=== PATIENT | male | born 1980 | race Caucasian/White ===

== ENCOUNTER 2018-12-19 15:45 | Inpatient (IN) | payer OTHER ==
[~2018-12-19] VITALS: Ht 165.1 cm; Wt 52.7 kg
[2018-12-19 16:27] LABS: BASOPHIL % 0.4 % (0-2); PLATELET COUNT 282 x10^3mcL (130-400)
[2018-12-19 16:47] LABS: BILIRUBIN TOTAL 0.5 mg/dL (0.20-1.00); CALCIUM 8.8 mg/dL (8.5-10.1); CARBON DIOXIDE 20.1 mmol/L (21-32)
[2018-12-19 16:57] LABS: ALBUMIN 2.7 g/dL (3.4-5.0); TOTAL PROTEIN, SERUM 12.4 g/dL (6.4-8.2)
[2018-12-19 16:59] LABS: CREATININE SERUM 4.9 mg/dL (0.7-1.3); POTASSIUM SERUM 2.8 mmol/L (3.5-5.1)
[2018-12-19] MEDS ORDERED: RENVELA800 M1 PO (18:41)
[2018-12-19] MEDS ORDERED: DIFLUCAN200 MG PO (18:41)
[2018-12-19 19:01] LABS: MAGNESIUM 1.9 mg/dL (1.8-2.4); PHOSPHOROUS 4.2 mg/dL (2.5-4.9)
[2018-12-19 19:07] LABS: CHOLESTEROL/HDL RATIO 4.3
[2018-12-19 19:10] LABS: FREE T4 1.02 ng/dL (0.76-1.46); FREE THYROXINE INDEX 2.8 ug/dL (1.4-4.5); T4(THYROXINE) 8.7 ug/dL (4.7-13.3)
[2018-12-19 19:42] VITALS: BP 97/79
[2018-12-19 19:54] VITALS: Ht 165.1 cm; Wt 52.7 kg
[2018-12-19 20:52] LABS: T3 TOTAL 1.31 ng/mL
[2018-12-20 06:25] LABS: BASOPHIL % 0.5 % (0-2); PLATELET COUNT 218 x10^3mcL (130-400)
[2018-12-20 06:35] VITALS: BP 89/59
[2018-12-20 06:42] LABS: CALCIUM 7.9 mg/dL (8.5-10.1); CARBON DIOXIDE 16.3 mmol/L (21-32); PHOSPHOROUS 6.2 mg/dL (2.5-4.9); POTASSIUM SERUM 3.2 mmol/L (3.5-5.1)
[2018-12-20 06:43] LABS: CREATININE SERUM 6.2 mg/dL (0.7-1.3)
[2018-12-20 08:49] LABS: RED CELL DISTRIBUTION WIDTH 19.8 % (11.5-14.5)
[2018-12-20 09:41] VITALS: BP 81/51
[2018-12-20 10:26] LABS: rbc morphology (normal/abnorm) ABNORMAL (NORMAL)
[2018-12-20 13:08] VITALS: BP 94/58
[2018-12-20] MEDS ORDERED: PROA PO (15:00)
[2018-12-20 16:58] VITALS: BP 94/58
== END 2018-12-20 18:12 | disposition home or self-care (01) | DRG 207 ==
LOC: ED 15:45 → DU 18:15
PROVIDERS: Emergency Medicine; ADMIT Family Medicine
DX: I95.9 Hypotension, unspecified (principal); N17.0 Acute kidney failure with tubular necrosis; E43 Unspecified severe protein-calorie malnutrition; G90.9 Disorder of the autonomic nervous system, unspecified; N18.6 End stage renal disease; B20 Human immunodeficiency virus [HIV] disease; E87.6 Hypokalemia; R74.0 Nonspecific elevation of levels of transaminase and lactic acid dehydrogenase [LDH]; E78.5 Hyperlipidemia, unspecified; D64.9 Anemia, unspecified; E02 Subclinical iodine-deficiency hypothyroidism; Z68.20 Body mass index [BMI] 20.0-20.9, adult; Z91.14 Patient's other noncompliance with medication regimen
CPT/HCPCS: 83880; 84439; J3480; J3490; J7030; J7040; P9045

== ENCOUNTER 2019-01-13 11:27 | Inpatient (IN) | payer OTHER ==
[~2019-01-13] VITALS: Ht 165.1 cm; Wt 50.3 kg
[~2019-01-13 11:27] MED LIST: DIFLUCAN200 MG PO; PROA PO; RENVELA800 M1 PO
[2019-01-13 11:33] VITALS: Ht 165.1 cm; Wt 50.3 kg
--- NOTE | 2019-01-13 11:40 | NUR ---
PATIENT BIBA FOR SOB, DIZZINESS, HYPOTENSION, DIARHEA. PER PATIENT, HE STS HE WAS HAVING THESE SYMPTOMS SINCE DAY BEFORE YESTERDAY. STS THAT HE LAST WENT TO DIALYSIS TUESDAY AND WAS SUPPOSED TO GO TO DIALYSIS TODAY BUT WAS NOT ABLE TO. PATIENT AAOX4, PERRLA, GCS 15, PATIENT ACTING APPROPRIATELY. DR. RIOS AT BEDSIDE PERFORMING MSE
[2019-01-13 12:22] LABS: BASOPHIL % 0.1 % (0-2); PLATELET COUNT 254 x10^3mcL (130-400)
[2019-01-13 12:38] LABS: ALKALINE PHOSPHATASE 141 U/L (46-116); ALT/SGPT 55 U/L (16-63); AST/SGOT 58 U/L (15-37); BILIRUBIN TOTAL 0.3 mg/dL (0.20-1.00); CALCIUM 7.9 mg/dL (8.5-10.1); CARBON DIOXIDE 16.8 mmol/L (21-32); CHLORIDE SERUM 93 mmol/L (98-107); GLUCOSE SERUM 107 mg/dL (74-106); LIPASE 287 IU/L (73-393); POTASSIUM SERUM 3.7 mmol/L (3.5-5.1); SODIUM SERUM 131 mmol/L (136-145)
[2019-01-13 12:51] LABS: ALBUMIN 2.7 g/dL (3.4-5.0); CREATININE SERUM 7.3 mg/dL (0.7-1.3); GFR1 9 mL/min
[2019-01-13] MEDS ORDERED: POTASSIUM CHLO10 MEQ (13:10)
[2019-01-13] MEDS ORDERED: MIDODRINE HYDRO10 M1 PO (13:10)
[2019-01-13] MEDS ORDERED: MASON NATURAL1000 IU (13:11)
--- NOTE | 2019-01-13 13:49 | NUR ---
PT RESTING AT BEDSIDE IN NAD.
--- NOTE | 2019-01-13 13:54 | NUR ---
REPORT GIVEN TO VIDHYA GRAY TELE
--- NOTE | 2019-01-13 13:57 | NUR ---
TRIAGE ESTIMATED WEIGHT @ 100 #. PT WEIGHED ON SCALE @ THIS MQFQ=[id number] #. TRIAGE UPDATED. MD INFORMED. 109#=49.5 KG 49.5KG X 30 CC/OT=[id number] CC LESS 10%=1338 CC CURRENT FLUID BOLUS XZUOH=[id number] CC WHICH IS WITHIN 10% OF [address] RIOS & LISSETTE PRIMARY RN AWARE OF THE ABOVE.
[2019-01-13 14:14] LABS: CHOLESTEROL/HDL RATIO 3.7
--- NOTE | 2019-01-13 14:30 | NUR ---
RECEIVED PT VIA YouFetchERNEY FROM E/D, ACCOMPANIED BY RN AND TRANSPORTER. PT A/A/O X 4, CALM, COOPERATIVE. ON TELE # 21, ST, HR 103, DENIES CHEST PAIN OR DISCOMFORT AT THIS TIME. LUNGS CTAB, CHEST RISING EVENLY, R/A, 99%, EPISODES OF SOB. ABD SOFT, FLAT, TENDERNESS UPON PALPATION TO QUADS 2 & 3, HYPERACTIVE BOWEL SOUNDS X 4 QUADS, LAST BM 01/13/19, DARK BROWN LIQUID, INTERMITTENT ABD CRAMPING 03/14, RELIEVED ONLY BY MEDICATIONS; REPORTS NAUSEA, VERY POOR PO INTAKE, AND CHOKES ON SOLID FOOD. OLIGURIC, HAS RIGHT TISHA CATH W/ DRESSING CDI, REPORTED LAST DIALYSIS 01/11/19 AND MISSED 01/13/19. GENERALIZED/SCATTERED BODY SCARS. IV SITE LFA 20G, CDI. ORIENTED PT TO ROOM, BED CONTROLS, CALL LIGHT SYSTEM. SIDE RAILS UP X 2, BED IN LOW POSITION. WILL ENDORSE TO VIDHYA DONNELLY.
--- NOTE | 2019-01-13 14:35 | NUR ---
Total fluid resuscitation amount ordered for patient is 1550 mls. At time of admission/transfer to [facility], 680 mls have infused. Last BP was 90/36 and ,RN is aware that BP will need to be reassessed after fluid infusion completed.
[2019-01-13 15:09] LABS: PHOSPHOROUS 9.3 mg/dL (2.5-4.9)
--- NOTE | 2019-01-13 15:21 | NUR ---
250ML BOLUS INITIATED AT THIS TIME.
[2019-01-13 15:36] VITALS: BP 83/57
--- NOTE | 2019-01-13 16:07 | NUR ---
PAGED DR GARLAND AT THIS TIME REGARDING FIRST DOSE OF PRO-AMATINE AND IF SHE WANTS ONE DOSE NOW OR FIRST DOSE TO BE STARTED AT 21:00 TONIGHT. AWAITING CALL BACK AT THIS TIME. WILL CONTINUE TO MONITOR
--- NOTE | 2019-01-13 16:21 | NUR ---
250ML BOLUS COMPLETE AT THIS TIME
[2019-01-13 16:34] VITALS: BP 82/50
--- NOTE | 2019-01-13 16:37 | NUR ---
PAGED AND PAGEGATE DR GARLAND AT THIS TIME REGARDING PATIENT LACTIC ACID 4.8 AT THIS TIME. AWAITING CALL BACK AT THIS TIME. NO NEW ORDERS SEEN. WILL CONTINUE TO MONITOR
[2019-01-13 17:08] VITALS: BP 84/57
--- NOTE | 2019-01-13 17:29 | NUR ---
SPOKE TO DR GARLAND TO ORDER A ONE TIME DOSE OF MIDODRINE AT THIS TIME. PER DR GARLAND SHE WILL PUT ORDER IN. AWAITING ORDER AT THIS TIME. WILL CONTINUE TO MONITOR
[2019-01-13 17:48] VITALS: BP 83/54
--- NOTE | 2019-01-13 18:03 | NUR ---
FILLED OUT C.DIFFICILE TEST REQUISTION AT THIS TIME FOR PATIENT TO COMPLETION. PATIENT MEETS C.DIFFICILE CRITERIA. CALLED LAB AND APPARENTLY PER IRONER SOCK C DIFFICILE TEST WAS RAN WITHOUT PRINTED ORDERS OR MANDATORY SUPPLEMENTARY DOCUMENTATION FOR C.DIFFICILE. ALL NEEDS ATTENDED TO. WILL CONTINUE TO MONITOR
--- NOTE | 2019-01-13 18:55 | NUR ---
PATIENT RESTING COMFORTABLY IN BED AT THIS TIME. NO APPARENT DISTRESS OR DISCOMFORT NOTED. IV PATENT AND INTACT. DRESSING TO TISHA CATH CHANGED. CDI. ALL QUESTIONS AND CONCERNS ADDRESSED. SAFETY PRECAUTIONS MAINTAINED. ALL NEEDS ATTENDED TO. WILL ENDORSE ALL CARE TO INSURANCE AUDITOR NURSE
--- NOTE | 2019-01-13 19:27 | NUR ---
RECEIVED PATIENT IN BED AWAKE,ALERT AND ORIENTED WITH NO SIGN OF ACUTE RESPIRATORY DISTRESS. BREATHING EASY AND NONLABOR SATTING AT 99% RA. TELE# 21 SR/ST WITH DEPRESSED T WAVE ON MONITOR, DENIES CHESTPAIN. ABDOMEN ROUND SOFTA ND NON TENDER WITH HYPERACTIVE BS X4 QUADRANTS. IV TO LFA INTACT AND INFUSING WELL. RT CHEST TISHA CATH INTACT DRESSING CDI. WILL CONTINUE TO MONITOR. CALL LIGHT WITHIN REACH.
[2019-01-13 21:24] VITALS: BP 94/62
--- NOTE | 2019-01-14 01:54 | NUR ---
APPEARS SLEEPING AT THIS TIME BREATHING EASYA ND NONLABOR. WILL CONTINUE TO MONITOR.
--- NOTE | 2019-01-14 05:02 | NUR ---
CHECKED AT INTERVALS FOR NEEDS AND SAFETY. ALL NEEDS ATTENDED.
[2019-01-14 05:31] VITALS: BP 84/54
[2019-01-14 06:43] LABS: CARBON DIOXIDE 11.9 mmol/L (21-32); POTASSIUM SERUM 3.8 mmol/L (3.5-5.1)
--- NOTE | 2019-01-14 07:00 | NUR ---
RECEIVED BEDSIDE REPORT FROM HUMAN RESOURCES TRAINEE NURSE AT THIS TIME. PATIENT RESTING COMFORTABLY IN BED. NO APPARENT DISTRESS OR DISCOMFORT NOTED. BREATHING EVEN AND UNLABORED. NO RESPIRATORY DISTRESS OR DISCOMFORT NOTED. IV PATENT AND INTACT. DRESSING TO RIGHT CHEST TISHA CATH CDI. ALL QUESTIONS AND CONCERNS ADDRESSED. ALL NEEDS ATTENDED TO. WILL CONTINUE TO MONITOR
[2019-01-14 07:30] LABS: PLATELET COUNT 254 x10^3mcL (130-400); RED CELL DISTRIBUTION WIDTH 18.5 % (11.5-14.5)
[2019-01-14 07:33] LABS: CREATININE SERUM 8.5 mg/dL (0.7-1.3); PHOSPHOROUS 13.9 mg/dL (2.5-4.9)
--- NOTE | 2019-01-14 07:34 | NUR ---
REPORTED TO DR GARLAND REGARDING PATIENT PHOS OF 13.9 AT THIS TIME. WILL PROCEED ORDERED. ALL NEEDS ATTENDED TO. WILL CONTINUE TO MONITOR
[2019-01-14 09:32] VITALS: BP 75/50
--- NOTE | 2019-01-14 10:00 | NUR ---
ALL MORNING MEDICATIONS ADMINISTERED. PATIENT TOLERATED MEDICATION ADMINISTRATION WELL. NO APPARENT DISTRESS NOTED. NO ADVERSE EFFECTS NOTED. ALL NEEDS ATTENDED TO. WILL CONTINUE TO MONITOR
--- NOTE | 2019-01-14 12:40 | NUR ---
ALL MORNING MEDICATIONS ADMINISTERED. PATIENT TOLERATED MEDICATION ADMINISTRATION WELL. NO APPARENT DISTRESS NOTED. NO ADVERSE EFFECTS NOTED. ALL NEEDS ATTENDED TO. WILL CONTINUE TO MONITOR
[2019-01-14 13:05] VITALS: BP 78/47
[2019-01-14 13:20] LABS: ATYPICAL LYMPH 0 %; BAND NEUTROPHIL 14 % (0-10); SEGMENTED NEUTROPHILS 74 % (37-75)
[2019-01-14 13:21] LABS: BASOPHIL 0 % (0-2); MONOCYTE 2 % (0-7); PLATELET MORPHOLOGY PLATELETS INCREASED; rbc morphology (normal/abnorm) ABNORMAL (NORMAL)
--- NOTE | 2019-01-14 13:36 | NUR ---
PATIENT C/O NAUSEA AT THIS TIME. ZOFRAN PRN IVP ADMINISTERED. PATIENT TOLERATED WELL. NO ADVERSE EFFECTS NOTED. ALL NEEDS ATTENDED TO. WILL CONTINUE TO MONITOR
--- NOTE | 2019-01-14 14:01 | NUR ---
PER DR GILL ESCALANTE TO FINISH FLAGYL ANTIBITOIC IVPB BEFORE STARTING 500ML BOLUS AT THIS TIME. WILL PROCEED ORDERED
--- NOTE | 2019-01-14 14:17 | NUR ---
PER DR GILL ESCALANTE TO BOLUS 500ML OF D5W AT THIS TIME. WILL CONTINUE TO MONITOR PATIENT
--- NOTE | 2019-01-14 14:26 | NUR ---
500ML BOLUS INITIATED AT THIS TIME
--- NOTE | 2019-01-14 14:35 | NUR ---
GAVE REPORT TO [facility] AT THIS TIME. ALL QUESTIONS AND CONCERNS ADDRESSED. ALL NEEDS ATTENDED TO. WILL TRANSFER PATIENT DOWN TO ICU BED 4 AT THIS TIME AND WILL BRING D5W BOLUS DOWN.
--- NOTE | 2019-01-14 15:00 | NUR ---
THE NOTE FROM 1450 TO 1500: RECEIVED THE PATIENT TRANSFERRED FROM [facility] UNIT. THE PATIENT AWAKE AND ORIENTED TO PERSON, PLACE AND TIME. PATIENT DENIES SHORTNESS OF BREATH AFTER GETTING TO THE BED FROM THE WHEELCHAIR. PATIENT ALSO DENIES NAUSEA/VOMITING OR PAIN AT THIS TIME. IV SITE TO LEFT FOREARM WITH BOLUS OF D5W 500ML INFUSING. THE PATIENT ORIENTED TO ROOM AND EQUIPMENT. THE PATIENT HOOKED UP TO FULLY MONITORING EQUIPMENTS. CALL LIGHT WITHIN REACH. SIDE RAILS UP X3. BED WAS AT LOWEST POSITION. ALARM WAS ON.
[2019-01-14 15:16] VITALS: BP 87/59
--- NOTE | 2019-01-14 16:00 | NUR ---
BOLUS OF 500 ML OF D5W COMPLETED; BP 97/60 (74).
--- NOTE | 2019-01-14 16:01 | NUR ---
TELEPHONED JAY FROM [facility] H.D. AND MADE AWARE PATIENT IN NEED OF H.D. TODAY. JAY STATED THAT HER H.D. RN WILL ARRIVE IONCE COMPLETED WITH PATIENT ON [facility].
--- NOTE | 2019-01-14 18:45 | NUR ---
THE PATIENT C/O NAUSEA; ZOFRAN 4MG IVP WAS ADMINISTERED TO THE PATIENT.
--- NOTE | 2019-01-14 19:07 | NUR ---
REPORT WAS GIVEN TO GONZALEZ PHILLIPS RN. CONCERNS WERE ADDRESSED.
--- NOTE | 2019-01-14 19:08 | NUR ---
REPORT RECIEVED FROM JUSTYNA KEE. RESUMED CARE OF PT. SEE SHIFT ASSESSMENT FOR PT ASSESSMENT.
--- NOTE | 2019-01-14 19:31 | NUR ---
CONSENT ATTAINED FROM PT FOR HEMODIALYSIS PER ORDERS. PT VERBALIZED KNOWLEDGE OF PROCEDURE AND RISK FACTORS. STATED HE ONLY FEELS ADVERSE EFFECTS SOMETIMES AND HIS BLOOD PRESSURE USUALLY DROPS A LITTLE.
--- NOTE | 2019-01-14 19:57 | NUR ---
PT W/ LOOSE BM BROWN LIQUID UNFORMED. CHANGED LINENS, CLEANED PT, NEW DIAPER. PT TOLERATED WELL.
--- NOTE | 2019-01-14 20:55 | NUR ---
PT W/ BM @ BEDSIDE COMMODE. BM LOOSE BROWN LIQUID. PT CLEANED SELF. NO S/S OF DISTRESS. PT RETURNED TO BED NO S/S OF SOB.
--- NOTE | 2019-01-14 21:27 | NUR ---
D5 NS W/ 1 AMP BICARB COMPLETED BP 95/55(72). PT TOLERATED WELL.
[2019-01-14 23:07] VITALS: BP 95/58
--- NOTE | 2019-01-14 23:36 | NUR ---
HD RN @ BEDSIDE. PT W/ NO ACUTE CHANGES. VS WNL. PT RESTING COMFORTABLY IN BED W/ CALL PFEIFFER WITHIN REACH BED IN LOWEST POSITION.
--- NOTE | 2019-01-15 00:30 | NUR ---
DR MEJIA @ BEDSIDE. NURSING UPDATES. POC DISCUSSED. NEW ORDERS IMPLEMENTED. STOOL OVA & PARASITES, C/S, AFB STAIN, MODIFIED AFD STAIN. DC DIFLUCAN AND FLAGYL. CD4 LYMPHOCYTE COUNT, HIV RNA LEVEL (BLOOD). LEVAQUINN IV [id number]. ZITHROMAX 500MG IV Q12H.
--- NOTE | 2019-01-15 01:47 | NUR ---
TITRATED LEVOPHED ON @ 2MCG/MIN FOR LOW BLOOD PRESSURE MAP < 65 AND SYSTOLIC < 90. WILL TITRATE AND CONT TO MONITOR.
--- NOTE | 2019-01-15 01:58 | NUR ---
TITRATED LEVO FROM 2MCG TO 4MCG/MIN PER PT LOW BP MAP < 65. WILL CONT TO MONITOR.
--- NOTE | 2019-01-15 03:03 | NUR ---
NOTIFIED BY HD RN THAT THERE WAS 0ML OUTPUT. LEVO STILL INFUSING @ 4MCG/MIN TO MAINTAIN MAP < 65.
--- NOTE | 2019-01-15 03:10 | NUR ---
HD COMPLETED. PT TOLERATED WELL. LEVO TITRATED FROM 4MCG TO 2CG/MIN PER PT BP MAP > 65 FOR 30 MINS. WILL CONT TO MONTIOR.
[2019-01-15 03:11] VITALS: BP 97/50
--- NOTE | 2019-01-15 04:46 | NUR ---
PHYSICIAN OFFICE SECRETARY ALISHA @ BEDSIDE FOR AM DRAWS.
[2019-01-15 05:00] LABS: BASOPHIL % 0.4 % (0-2); PLATELET COUNT 193 x10^3mcL (130-400)
[2019-01-15 05:02] LABS: RED CELL DISTRIBUTION WIDTH 17.3 % (11.5-14.5)
[2019-01-15 05:07] LABS: CALCIUM 7.5 mg/dL (8.5-10.1); CARBON DIOXIDE 32.1 mmol/L (21-32); CREATININE SERUM 3.6 mg/dL (0.7-1.3); MAGNESIUM 1.5 mg/dL (1.8-2.4); PHOSPHOROUS 2.9 mg/dL (2.5-4.9)
[2019-01-15 05:09] LABS: POTASSIUM SERUM 2.5 mmol/L (3.5-5.1)
--- NOTE | 2019-01-15 05:20 | NUR ---
DR AL PAGED FOR PT K+ 2.5. AWAITING ORDERS
--- NOTE | 2019-01-15 05:28 | NUR ---
PT REPORTED PAIN 8/10 IN ABD W/ GASTRIC PRESSURE BUILDING. PAIN RELIEF MEASURES IMPLODED. PT DISPLAY SLIGHT GUARDING TO RIGHT SIDE. ADM PRN NORCO (*SEE MAR*). WILL REASSESS PAIN.
--- NOTE | 2019-01-15 05:41 | NUR ---
PT W/ BM UNFORMED LOOSE LIGHT BROWN STOOL IN BEDSIDE COMMODE. CLEANED PT AND LINENS. OVA AND PARA/ AFB SAMPLES COLLECTED AND SENT TO LAB. NOTED SLIGHT HINT OF BLOOD SMELL FROM STOOL SAMPLES.
--- NOTE | 2019-01-15 05:55 | NUR ---
LEVOPHED TITRAED OFF FOR BP MAP CONSISTENT > 65 FOR 1 HOUR. WILL CONT TO MONITOR.
--- NOTE | 2019-01-15 05:57 | NUR ---
DR ZAPIEN NOTIFIED OF K+ 2.5 AND MG 1.5. AWAITING ORDERS. NURSING UPDATES AND DISCUSSED POC.
--- NOTE | 2019-01-15 07:15 | NUR ---
REPORT GIVEN BY VIDHYA PHILLIPS. ALL QUESTIONS ANSWERED.
--- NOTE | 2019-01-15 07:20 | NUR ---
PATIENT IS IN BED, BED IS TO THE LOWEST POSITION. PATIENT IS ON ROOM AIR BREATHING ADEQUATELY AND THERE ARE NO SIGNS OF RESPIRATORY DISTRESS. LADLE POURER IN PLACE, NSR. PATIENTS SKIN HAS SCATTERED SCABS THROUGHOUT, HX OF HIV. PATIENT IS ALERT AND ORIENTED AND ABLE TO FOLLOW COMMANDS. RIGHT TISHA IS INTACT. ABD IS SOFT AND FLAT. LFA IV IS INTACT AND PATENT WITH A Y PORT. PATIENT HAS A DIAPER NOTED. PATIENT WAS EDUCATED ON HOSPITAL POLICY, AND THAT DIAPERS CAN CAUSE SKIN BREAKDOWN. PATIENT STATED "I UNDERSTAND, BUT I FEEL MORE COMFORTABLE WITH DIAPERS, I WILL LET YOU KNOW SOON I HAVE A BOWEL MOVEMENT". WILL CONTINUE TO EDUCATE PATIENT. BED SIDE COMMODE IS AT BEDSIDE. HEELS OFF LOADED WITH PILLOWS. PATIENT STABLE, CALL LIGHT WITHIN REACH, WILL CONTINUE TO MONITOR.
[2019-01-15 07:26] VITALS: BP 80/47
--- NOTE | 2019-01-15 09:27 | NUR ---
DR. CELESTIN, RESIDENTS, PRIMARY RN AND SHOT COAT TENDER AT BEDSIDE FOR MORNING ROUNDS. PLAN OF CARE DISCUSSED. PT STABLE TO TRANSFER TO [facility] TODAY. WILL CONT TO MONITOR.
--- NOTE | 2019-01-15 09:50 | NUR ---
CALLED, ALL UPDATES PROVIDED. DR. IBRAHIM WOULD LIKE NS TO BE ORDERED AT 75 ML/HR.
--- NOTE | 2019-01-15 10:00 | NUR ---
PATIENT ASSISTED TO BEDSIDE COMMODE, PATIENT HAD DIARRHEA, WATERY, GREEN/BROWN IN COLOR. PATIENT CLEANSED AND ASSISTED BACK TO BED, PATIENT STABLE, WILL CONTINUE TO MONITOR.
[2019-01-15 11:12] VITALS: BP 81/47
--- NOTE | 2019-01-15 12:40 | NUR ---
PATIENT USED BEDSIDE COMMODE HAD APPROXIMATELY 60 ML OF DIARRHEA, WATERY AND GREEN/ BROWN IN COLOR. PATIENT CLEANSED AND STABLE. WILL CONTINUE TO MONITOR.
--- NOTE | 2019-01-15 12:53 | NUR ---
PATIENT USED BEDSIDE COMMODE HAD 50 ML OF WATERY DIARRHEA, GREEN/ BROWN IN COLOR. PATIENT ASSISTED WITH CLEANSING. PATIENT STABLE, WILL CONTINUE TO MONITOR.
--- NOTE | 2019-01-15 14:35 | NUR ---
DR. IBRAHIM AT BEDSIDE. ALL UPDATES PROVIDED. PER DR. IBRAHIM, 20 MEQ OF POTASSIUM TO BE GIVEN IV . DR. ZAPIEN MADE AWARE AND WILL ORDER. PATIENT STABLE AT THIS TIME. WILL CONTINUE TO MONITOR.
[2019-01-15 15:57] VITALS: BP 81/43
[2019-01-15 16:13] LABS: BILIRUBIN TOTAL 0.37 mg/dL (0.20-1.00); CALCIUM 7.4 mg/dL (8.5-10.1)
[2019-01-15 16:21] LABS: ALBUMIN 3.1 g/dL (3.4-5.0); TOTAL PROTEIN, SERUM 8.8 g/dL (6.4-8.2)
[2019-01-15 16:22] LABS: POTASSIUM SERUM 2.5 mmol/L (3.5-5.1)
[2019-01-15 16:23] LABS: CREATININE SERUM 5.2 mg/dL (0.7-1.3)
--- NOTE | 2019-01-15 16:31 | NUR ---
DR. ZAPIEN MADE AWARE OF POTASSIUM 2.5 WITH SECOND K-RIDER STILL INFUSING WELL CREAT OF 5.2, NO FURTHER ORDERS AT THIS TIME.
--- NOTE | 2019-01-15 17:30 | NUR ---
PATIENT USED BEDSIDE COMMODE, 30 ML OF DIARRHEA, GRENN/BROWN IN COLOR AND WATERY. PATIENT ASSISTED WITH CLEANSING. PATIENT STABLE, WILL CONTINUE TO MONITOR.
--- NOTE | 2019-01-15 18:33 | NUR ---
REPORT GIVEN TO VIDHYA GILLESPIE. ALL QUESTIONS AND CONCERNS ADDRESSED, PATIENT READY FOR TRANSFER, AT THIS TIME.
--- NOTE | 2019-01-15 18:34 | NUR ---
REPORT GIVEN TO VIDHYA GILLESPIE. ALL QUESTIONS AND CONCERNS ADDRESSED. INFORMED VERNA THAT POTASSIUM WAS 2.5, AND SECOND DOSE WAS GIVEN. DR. RUPALI MORALEZ. ALSO INFORMED TO FOLLOW UP ON POTASSIUM DRAW. PATIENT STABLE AT THIS TIME AND READY FOR TRANSFER.
--- NOTE | 2019-01-15 18:59 | NUR ---
RECEIVED A TRANSFER FROM ICU VIA WHEELCHAIR, SEEN AWAKE, ALERT, ORIENTED X4. BREATHING EASY AND EVEN ON ROOM AIR. V/S FOLLOW BP 79/42, HR 55, O2SAT 100% ON ROOM AIR, AFEBRILE. IVF NS TO LFA INFUSING WELL AT 75ML/HR. TELE#[address] NSR HR=61. TISHA CATH NOTED TO RIGHT CHEST WALL WITH DRSG CDI. PLAN OF CARE DISCUSSED. CALL LIGHT PLACED WITHIN EASY REACH. SIDERAILS UP X2.
[2019-01-15 19:26] LABS: CALCIUM 7.5 mg/dL (8.5-10.1); CARBON DIOXIDE 28.3 mmol/L (21-32)
[2019-01-15 19:27] LABS: CREATININE SERUM 5.3 mg/dL (0.7-1.3); POTASSIUM SERUM 2.9 mmol/L (3.5-5.1)
--- NOTE | 2019-01-15 19:50 | NUR ---
AOX4. TELE #1, SR. LUNGS CLEAR ON RA. PULSES PALPABLE. NO EDEMA. BOWEL SOUNDS ACTIVE. C/O MULTIPLE LOOSE BM TODAY. PT IS ANURIC WITH HD AND TISHA CATH TO R CHEST WALL, NO REDNESS, DRESSING CDI. AMBULATORY. DARK DISCOLORATIONS SCATTERED THROUGHOUT. DENIES PAIN. IV TO LFA, PATENT AND INFUSING. K 2.9, DR. ZAPIEN NOTIFIED VIA PAGEGATE. BED IN LOWEST POSITION, 2 SIDE RAILS UP, CALL LIGHT IN REACH. INSTRUCTED TO CALL FOR ASSISTANCE.
[2019-01-15 20:39] VITALS: BP 79/42
--- NOTE | 2019-01-16 02:57 | NUR ---
RESTING IN BED WITH EYES CLOSED. BREATHING E/U ON RA. NO ACUTE DISTRESS NOTED. WILL CONTINUE TO MONITOR.
[2019-01-16 05:14] VITALS: BP 75/43
--- NOTE | 2019-01-16 06:17 | NUR ---
NO ACUTE DISTRESS NOTED. NO ACUTE CHANGES. WILL ENDORSE TO ONCOMING RN.
--- NOTE | 2019-01-16 07:15 | NUR ---
SEEN IN BED AAOX4.NO RESP DISTRESS NOTED. BREATHING E/U ON ROOM AIR. DENIES ABN PAIN/NAUSEA AT THIS TIME. STATED HAD 2 EPISODES OF WATERY BM LAST NIGHT. ON CLEAR LIQUID DIET. IVF NS TO LFA INFUSING WELL AT 75ML/HR. PLAN OF CARE INFORMED, CALL LIGHT PLACED WITHIN EASY REACH, SIDERAILS UP X2.
[2019-01-16 07:27] LABS: BASOPHIL % 0.4 % (0-2); PLATELET COUNT 166 x10^3mcL (130-400)
[2019-01-16 07:42] LABS: RED CELL DISTRIBUTION WIDTH 18.7 % (11.5-14.5)
--- NOTE | 2019-01-16 07:45 | NUR ---
RECEIVED A CALL FROM DOCTOR IBRAHIM, CURRENT LABS AND BP UPDATED. RECEIVED ORDER TO DISCONTINUE IVF, NO HEMODILAYSIS TODAY DUE TO LOW BP.
[2019-01-16 07:49] LABS: CALCIUM 7.6 mg/dL (8.5-10.1); CARBON DIOXIDE 19.6 mmol/L (21-32); MAGNESIUM 1.9 mg/dL (1.8-2.4); PHOSPHOROUS 4.3 mg/dL (2.5-4.9)
[2019-01-16 07:52] LABS: POTASSIUM SERUM 2.8 mmol/L (3.5-5.1)
[2019-01-16 08:57] VITALS: BP 81/47
--- NOTE | 2019-01-16 10:30 | NUR ---
SEEN BY DOCTOR IBRAHIM. PATIENT MADE AWARE THAT HD WILL BE DONE TODAY.
--- NOTE | 2019-01-16 11:31 | NUR ---
NOTED NEW ORDER FOR HEMODIALYSIS TODAY. [facility] MADE AWARE.
--- NOTE | 2019-01-16 13:00 | NUR ---
TOLERATED TO REGULAR DIET WELL. DENIES ABDOMINAL PAIN.
[2019-01-16 13:12] VITALS: BP 89/49
--- NOTE | 2019-01-16 14:00 | NUR ---
Initial Nutrition Assessment: 255T/A ZEENAT ROMERO IA HR Dx: Chronic Hypotension, Diarrhea, End Stage Renal Disease PMHx: HIV, ESRD, Chronic Hypotension PSHx: None Labs: K 2.8L, CO2 19.6L, BUN 23H, Ca 7.6L, Hgb 8.1L, Hct 24L Meds: Albuminar-25, Lactinex, Levaquin 500mg Premix, Phoslo, Zithromax, Zofran Diet: Clear Liquid Diet PO Intake: (01/13) Clear liquid dinner-50%, (01/14) Clear liquid breakfast-40%, Clear liquid dinner-20%, (01/15) Clear liquid all meals-80% Ht: 165cm, 64in Wt: 50kg, 110# BMI: 18.5kg/m2 IBW: 130#, 59kg %IBW: 84% UBW: 120# Age: 39/M Food Allergies: NKA Skin: Scattered dark discolorations throughout Simone: 16 Edema: None GI: Last BM: 01/16/19 Trigger: appears underweight/malnourished, unintentional wt loss >10# in 1 month Per H&P: Pt is a 39 year old male with a past medical history significant for HIV, ESRD on HD T//Tue, and chronic hypotension who presents to the ED with non-bloody diarrhea associated with abdominal cramping, nausea, and 3 episodes of non-bilious non-bloody vomiting. Patient cannot recall any inciting factors leading to his symptoms. He also complains of shortness of breath and fatigue. Patient states that he is unable to keep down food. RDN Visit (01/16): pt said that he was able to finish all of his breakfast this morning and states that he has 'Good' appetite. Pt is on HD and tries to eat low phosphorus foods. Pt does not have any N/V but has diarrhea. Problem with: N/V: no D: yes Problems with: Chewing/Swallowing: no Current appetite: good Recent wt change: 10# in 3 months %wt change: 8 Vitamin/Supplement use: Vitamin D/ Nepro Special diet at home: Regular (tries to eat low phosphorus foods) Physical activity: unable to access Education: Patient was aware about dietary restrictions in Renal diet. Pt did not have any questions regarding renal diet at this time. Estimated Nutritional Needs Based on ideal body weight 59 kg Energy: 3650-9582 kcal/d (30-35 kcal/kg) - pt on HD Protein: 71-88 g/d (1.2-1.5 g/kg)- HD Fluid: per MD Nutrition Diagnosis 1. Increased nutrient needs related to increased metabolic demands as evidenced by patient on HD. Intervention 1. Progress to Renal diet when medically appropriate/tolerated. 2. Recommend Nepro with carbsteady BID once diet id progressed. Monitor/Evaluate Goal: PO intake at least 75% of estimated needs Monitor: PO intake, Labs, GI function F/U in 3-5 days as moderate risk 01/19-
--- NOTE | 2019-01-16 14:00 | NUR ---
1. Progress to Renal diet when medically appropriate/tolerated. 2. Recommend Nepro with carbsteady BID once diet is progressed.
--- NOTE | 2019-01-16 15:39 | NUR ---
HEMODIALYSIS ONGOING AT BEDSIDE. NO ANY DISTRESS NOTED.
[2019-01-16 17:25] VITALS: BP 87/48
--- NOTE | 2019-01-16 18:52 | NUR ---
HEMODIALYSIS DONE WITH 400 ML NET OUTPUT. DENIES PAIN/NAUSEA AT THIS TIME. V/S STABLE. IVF NS AT 40ML/HR INFUSING WELL. TISHA CATH WITH DRSG CLEAN/DRY/INTACT.
--- NOTE | 2019-01-16 19:31 | NUR ---
RECEIVED PT FROM PREVIOUS SHIFT. PT A/OX4. C/O PAIN TO IV SITE ON LFA. IV INFUSION STOPPED AT THIS TIME. IV SITE FREE OF REDNESS/SWELLING. PT C/O PAIN UPON FLUSHING. IV REMOVED BY VIDHYA GILLESPIE. PT DENIES SOB ON RA. CALL LIGHT WITHIN REACH, BED IN LOW POSITION. WILL CONTINUE TO MONITOR.
[2019-01-16 20:46] VITALS: BP 72/40
--- NOTE | 2019-01-16 21:31 | NUR ---
NEW IV PLACED TO [facility] BY VIDHYA SALEEM. IV FLUIDS RESUMED AT THIS TIME.
--- NOTE | 2019-01-17 00:12 | NUR ---
PT RESTING IN NO ACUTE DISTRESS. RR EVEN AND UNLABORED. IV PATENT AND INFUSING WELL WITH NO S/S OF INFILTRATION. CALL LIGHT WITHIN REACH, BED IN LOW POSITION. WILL CONTINUE TO MONITOR.
[2019-01-17 05:58] VITALS: BP 70/39
--- NOTE | 2019-01-17 06:09 | NUR ---
BP 70/39. PT ASYMPTOMMATIC, IN NO ACUTE DISTRESS. DR CHENG MADE AWARE. NO FURTHER ORDERS AT THIS TIME.
[2019-01-17 09:06] VITALS: BP 69/40
[2019-01-17 09:26] LABS: CARBON DIOXIDE 22.9 mmol/L (21-32); POTASSIUM SERUM 3.1 mmol/L (3.5-5.1)
[2019-01-17 09:27] LABS: CREATININE SERUM 4.5 mg/dL (0.7-1.3)
--- NOTE | 2019-01-17 10:21 | NUR ---
AT 0720 - RECEIVED PATIENT FROM NIGHT NURSE. SLEEPING. RESPIRATIONS REGULAR. MONITOR SHOWING SINUS RHYTHM; RATE 60'S. IV INFUSING NS AT 40 ML/HR. AT 0930 - COMMENCED 40 MEQ K-RIDER FOR K+ OF 3.1 PATIENT RESTING QUIETLY.
[2019-01-17 13:07] VITALS: BP 76/42
--- NOTE | 2019-01-17 13:30 | NUR ---
SEEN BY DR IBRAHIM. RECEIVED ORDER FOR HD TOMORROW. DIALYSIS CENTER CALLED BY [facility] HEAD CLEANING PORTER. PATIENT AMBULATES IN ROOM. K-GODFREY BOX IN PROGRESS.
[2019-01-17 17:25] VITALS: BP 79/42
--- NOTE | 2019-01-17 18:23 | NUR ---
AWAKE, ALERT AND ORIENTED. BP 79/42. MONITOR SHOWING SINUS RHYTHM; RATE 60'S. NO C/O PAIN. K-RIDER COMPLETED. IV ZITHROMAX IN PROGRESS AT THIS ITCO. WILL ENDORSE CARE TO NIGHT NURSE.
--- NOTE | 2019-01-17 19:56 | NUR ---
EYES CLOSED, NO FACILA GRIAMCING NOTED. RESPIRATION EVEN AND UNLABORED. NO S/S OF PAIN/DISCOMFORT. ON TELE #20 SHOWS SR,. IV SITE LFA INTACT, NO REDNESS /NO SWELLING NOTED. CONTINUES ON IVF NS AT 40ML/HR ORDERED. CALL LIGHT WITHIN REACH. WILL CONTINUE TO MONITOR.
[2019-01-17 21:43] VITALS: BP 75/47
--- NOTE | 2019-01-17 22:30 | NUR ---
BP=75/47, PT ASSYMPTOMATIIC. DENEIS ANY CHER=ZZINESS/HEADACHE. ABLE TO REPOSITION SELF IN BED. IVF NS AT 40ML/HR INFUSING WELL VIA PERIPHERAL LINE AT THE [facility] TOLERATING WELL. CALL LIGHT WITHIN REACH.
[2019-01-18 05:19] VITALS: BP 74/43
--- NOTE | 2019-01-18 05:48 | NUR ---
HAD BM X1 LARGE AMOUNT OF BLACKISH STOOL LOOSE BOWEL IN MODERATE AMOUNT. KEPT CLEANA ND DRY. ALL NEEDS ATTENDED.
[2019-01-18 06:19] LABS: BASOPHIL % 0.6 % (0-2); PLATELET COUNT 204 x10^3mcL (130-400)
[2019-01-18 06:21] LABS: RED CELL DISTRIBUTION WIDTH 17.2 % (11.5-14.5)
[2019-01-18 06:27] LABS: CALCIUM 7.9 mg/dL (8.5-10.1); CARBON DIOXIDE 14.7 mmol/L (21-32); MAGNESIUM 1.4 mg/dL (1.8-2.4)
[2019-01-18 07:14] LABS: CREATININE SERUM 5.8 mg/dL (0.7-1.3); POTASSIUM SERUM 2.7 mmol/L (3.5-5.1)
--- NOTE | 2019-01-18 07:44 | NUR ---
AT 0710 - RECEIVED PATIENT FROM NIGHT NURSE. SLEEPING. RESPIRATIONS REGULAR. MONITOR SHOWING SINUS RHYTHM; RATE 61. AT 0715 - RECEIVED CALL FROM LAB WITH K 2.7. ATTEMPTING TO CONTACT DIRECTOR OF PEOPLE TO NOTIFY.
[2019-01-18 09:19] VITALS: BP 82/47
--- NOTE | 2019-01-18 09:22 | NUR ---
AT 0830 - FRAME BUILDER AGUIRRE MADE AWARE OF LOW K+ LEVEL OF 2.7. SHE WILL ORDER RIDER AND PATIENT WILL HAVE HD WITH K BATH. PATIENT IS AWAKE, ALERT ANDORIENTED. HAS EATEN BREAKFAST. AT 0915 - DIALYSIS NURSE AT BEDSIDE.
[2019-01-18 12:18] VITALS: BP 81/47
--- NOTE | 2019-01-18 15:06 | NUR ---
AT 1130 - COMMENCED 60 MEQ K-RIDER. PATIENT WILL HAVE DIALYSIS STARING SHORTLY. AT 1230 - HD IN PROGRESS. HYPOTENSIVE BUT VSS. AT 1430 - HD COMPLETED. TOTAL OF 400 ML FLUID REMOVED. PATIENT RESTING QUIETLY. IV INFUSING NS AT 40 ML/HR AND K-RIDER AT 40 ML/HR
--- NOTE | 2019-01-18 17:54 | NUR ---
AT 1645 - SEEN BY DR IBRAHIM. [place]-RIDER STOPPED PER DR'S INSTRUCTIONS. RECEIVED ORDERS FOR REPEAT BNP IN 1 HR.
[2019-01-18 18:16] VITALS: BP 83/50
[2019-01-18 18:23] LABS: CALCIUM 8.4 mg/dL (8.5-10.1); CARBON DIOXIDE 26.9 mmol/L (21-32); CREATININE SERUM 2.8 mg/dL (0.7-1.3); POTASSIUM SERUM 3.6 mmol/L (3.5-5.1)
--- NOTE | 2019-01-18 19:40 | NUR ---
AT 1910 - PATIENT RESTING QUIETLY. VSS. EATING WELL, GOOD APPETITE. CARE ENDORSED TO NIGHT NURSE.
--- NOTE | 2019-01-18 19:49 | NUR ---
RECEIVED AWAKE AND VERBALLY RESPONSIVE. ABLE TO MAKE NEEDS KNOWN, SKIN WARM AND DRY WITH SCATTERED DISCOLRATIONS TO BLE. RESPIRATION EVEN AND UNLABORED. ON TELE #1 SHOWS SR. DENIES ANY CHEST APIN/DISCOMFORT. IVF NS AT 40ML/HR INFUSING VIA PERIPHERAL LINE AT [facility] TOLERATING WELL. WILL CONTINUE TO MONITOR.
[2019-01-18 21:23] VITALS: BP 77/43
--- NOTE | 2019-01-18 22:00 | NUR ---
DUE MEDICATIONS GIVEN AND WELL TOLERATED. DENIES ANY DIZZINESS/H/A AT THIS TIME.
--- NOTE | 2019-01-19 | NUR ---
EYES CLSOED, NO S/S OF PAIN/DSICOMFORT. RESPIRATION EVEN AND UNLABORED. CALL LIGHT WITHIN REACH,
--- NOTE | 2019-01-19 04:15 | NUR ---
HAD BM LIQUID BLACKISH STOOLIN LARGE AMOUNT. KEPT CLEAN AND DRY. ASSISTED IN REPOSITIONING FOR COMFORT.
[2019-01-19 05:50] VITALS: BP 74/40
[2019-01-19 06:09] LABS: BASOPHIL % 0.7 % (0-2); PLATELET COUNT 183 x10^3mcL (130-400)
[2019-01-19 06:20] LABS: CALCIUM 7.8 mg/dL (8.5-10.1); CARBON DIOXIDE 19.8 mmol/L (21-32); CREATININE SERUM 3.9 mg/dL (0.7-1.3); POTASSIUM SERUM 3.3 mmol/L (3.5-5.1)
[2019-01-19 06:29] LABS: RED CELL DISTRIBUTION WIDTH 17.5 % (11.5-14.5)
--- NOTE | 2019-01-19 06:43 | NUR ---
DENNIES ANY PAIN AT THIS TIME/ CONTINUES ON IVF NS AT 40ML/HR. KEPT CLEAN AND DRY. ALL NEEDS ATTENDED.
--- NOTE | 2019-01-19 07:15 | NUR ---
RECIEVED PT FROM NIGHT NURSE. PT IS LAYING DOWN IN BED WITH HOB UP AND EYES OPEN. RESPIRATIONS EVEN AND UNLABORED ON ROOM AIR. PT LOOKS TO BE IN NO ACUTE DISTRESS AND DENIES ANY PAIN AT THIS TIME. TELE MONITOR 1 PRESENT. IV SITE PATENT WITH NO SIGNS OF ERYTHEMA OR SWELLING WITH IV FLUIDS INFUSING. BED IN LOWEST POSITION. CALL LIGHT WITHIN REACH. WILL CONTINUE TO MONITOR.
[2019-01-19 09:30] VITALS: BP 79/42
[2019-01-19 13:39] VITALS: BP 81/44
--- NOTE | 2019-01-19 14:30 | NUR ---
PT AWAKE, ALERT AND ORIENTED AT TIME OF DISCHARGE AND DENIES ANY PAIN. PT DISCHARGE HOME AND BROUGHT TO LOBBY VIA WHEELCHAIR ACCOMPANIED BY NURSE. PT EDUCATION PROVIDED TO PT WELL FOLLOW UP APPOINTMENT. PT VERBALIZED UNDERSTANDING OF EDUCATION. NO NEW PRESCIPTIONS PRESCRIBED. IV REMOVED AND CATHETER FULLY INTACT. TELE MONITOR REMOVED AND RETURNED TO STATION. ALL BELONGINGS WITH PT.
== END 2019-01-19 14:38 | disposition home or self-care (01) | DRG 720 ==
LOC: ED 11:27 → IC 13:15 → DU 13:15 → EDBEDREQ 13:17 → DU 14:36 → IC 01-14 14:56 → DU 01-15 18:49
PROVIDERS: Emergency Medicine; Internal Medicine; ADMIT Family Medicine
DX: A41.9 Sepsis, unspecified organism (principal); R65.21 Severe sepsis with septic shock; E43 Unspecified severe protein-calorie malnutrition; E87.2 Acidosis; I95.89 Other hypotension; E87.1 Hypo-osmolality and hyponatremia; E83.39 Other disorders of phosphorus metabolism; K52.9 Noninfective gastroenteritis and colitis, unspecified; N18.6 End stage renal disease; E87.6 Hypokalemia; M62.50 Muscle wasting and atrophy, not elsewhere classified, unspecified site; E78.5 Hyperlipidemia, unspecified; Z99.2 Dependence on renal dialysis; Z68.1 Body mass index [BMI] 19.9 or less, adult
CPT/HCPCS: 36600; 87046; 87046-59; 87116; 87206; 97116-GP; J0456; J0696; J1450; J1644; J1956; J2405; J3370; J3475; J3480; J3490; J7030; J7050; J7060; P9047; Q0092

== ENCOUNTER 2019-02-13 22:53 | Inpatient (IN) | payer OTHER ==
[~2019-02-13] VITALS: Ht 175.3 cm; Wt 51.0 kg
[~2019-02-13 22:53] MED LIST changes: +MASON NATURAL1000 IU; +MIDODRINE HYDRO10 M1 PO; +POTASSIUM CHLO10 MEQ
--- NOTE | 2019-02-13 23:04 | NUR ---
RT AT BEDSIDE
[2019-02-13 23:11] VITALS: Ht 175.3 cm; Wt 51.0 kg
--- NOTE | 2019-02-13 23:28 | NUR ---
PLEBOTOMIST AT BEDSIDE.
--- NOTE | 2019-02-13 23:28 | NUR ---
ATTEMPTED TO OBTAIN URINE FROM PT - PT REPORTS HX OF DIALYSIS AND STS HE DOESN'T MAKE URINE.
--- NOTE | 2019-02-13 23:28 | NUR ---
X-RAY DONE AT BEDSIDE.
--- NOTE | 2019-02-14 00:01 | NUR ---
PT TAKEN TO CT VIA [facility]
[2019-02-14 00:33] LABS: BASOPHIL % 0.2 % (0-2); PLATELET COUNT 266 x10^3mcL (130-400)
[2019-02-14 00:35] LABS: ALKALINE PHOSPHATASE 137 U/L (46-116); ALT/SGPT 65 U/L (16-63); AST/SGOT 66 U/L (15-37); BILIRUBIN TOTAL 0.3 mg/dL (0.20-1.00); CALCIUM 7.5 mg/dL (8.5-10.1); CARBON DIOXIDE 16.6 mmol/L (21-32); CHLORIDE SERUM 95 mmol/L (98-107); GLUCOSE SERUM 72 mg/dL (74-106); POTASSIUM SERUM 3.1 mmol/L (3.5-5.1); SODIUM SERUM 132 mmol/L (136-145)
[2019-02-14 00:38] LABS: ALBUMIN 2.9 g/dL (3.4-5.0); GFR1 7 mL/min; TOTAL PROTEIN, SERUM 10.4 g/dL (6.4-8.2)
[2019-02-14 00:46] LABS: CREATININE SERUM 9.4 mg/dL (0.7-1.3)
[2019-02-14 00:52] LABS: CK-MB < 0.5 ng/mL (0-3.6); CREATINE KINASE 33 U/L (39-308)
--- NOTE | 2019-02-14 01:21 | NUR ---
PT SLEEPING COMFORTABLY IN BED. EASILY AROUSABLE W/ TACTILE STIMULI. WARM BLANKET GIVEN TO PT. DENIES FURTHER NEEDS AT THIS TIME. WILL CONTINUE TO MONITOR BP. NO OBVIOUS SIGNS OF DISTRESS AT THIS TIME.
--- NOTE | 2019-02-14 02:42 | NUR ---
PT C/O OF BURNING TO IV SITE DUE TO POTASSIUM MED ADMINISTRATION. RATE TITRATED DOWN TO 25ML/HR. PT ABLE TO TOLERATE THIS RATE AT THIS TIME AND STS "MUCH BETTER."
--- NOTE | 2019-02-14 03:58 | NUR ---
PT ADMITTED (TELE - ROOM #256A). REPORT CALLED TO SHENG KEE. OPPORTUNITY GIVEN TO ASK QUESTIONS. PT BEING TRANSPORTED TO FLOOR BY RN.
[2019-02-14 04:11] LABS: MAGNESIUM 2.4 mg/dL (1.8-2.4)
[2019-02-14 04:18] LABS: CHOLESTEROL/HDL RATIO 5.3
--- NOTE | 2019-02-14 04:18 | NUR ---
SPECIAL PROGRAMS DIRECTOR AT BEDSIDE PRIOR TO TRANSFER TO FLOOR.
[2019-02-14 04:20] LABS: PHOSPHOROUS 11.5 mg/dL (2.5-4.9)
--- NOTE | 2019-02-14 04:21 | NUR ---
PT CONTINUES TO C/O OF BURNING SENSATION FROM POTASSIUM MED ADMINISTRATION. NS FLUSHED WITH EASE - NO SIGNS OF INFILTRATION. 250 ML NS RUNNING WITH POTASSIUM BUT PT CONTINUES TO C/O. DR SORENSON, ERP, MADE AWARE - POTASSIUM STOPPED PER ERP'S VERBAL INSTRUCTIONS AT THIS TIME. PT BEING TRANSFERRED TO FLOOR. PT'S CARE COMPLETED BY THIS RN AT THIS TIME.
--- NOTE | 2019-02-14 04:40 | NUR ---
RECEIVED PT FROM ED VIA TEMITOPE ACCOMPANIED BY RN. PT AMBULATED TO BATHROOM WITH SLOW STEADY GAIT. HAD A BM, CHRONIC DIARRHEA PER PT. NO ACUTE DISTRESS NOTED. EVEN AND UNLABORED RESPIRATION ON RA. IVL TO R HAND PATENT AND INTACT. ON TELE #23 READING SR 80. PULSES PRESENT, NO EDEMA NOTED. RIGHT CHEST WALL PERMACATH INTACT, DRESSING CDI. ORIENTED PT TO SURROUNDINGS. INSTRUCTED ON USE OF CALL LIGHT. BED IN LOWEST POSITION. SIDE RAILS UP X2. CALL LIGHT WITHIN REACH. WILL CONTINUE TO MONITOR.
[2019-02-14 05:02] VITALS: BP 95/52
--- NOTE | 2019-02-14 06:54 | NUR ---
PT RESTING COMFORTABLY IN BED. NO ACUTE DISTRESS NOTED. ALL NEEDS TENDED TO AND MET. ALL SCHEDULED MEDICATIONS GIVEN. IV PATENT AND INTACT RUNNING FLUIDS PER EMAR. ON TELE #23 READING NSR. R CHEST WALL PERMACATH INTACT, DRESSING CDI. BED IN LOWEST POSITION. SIDE RAILS UP X2. CALL LIGHT WITHIN REACH. WILL ENDORSE TO ONCOMING SHIFT.
--- NOTE | 2019-02-14 07:30 | NUR ---
RECEIVED PT IN BED A/A/OX4 DENIES LOZANO, SLEEPY BUT EASILY ARROUSABLE. RESP EVEN AND UNLABORED WITH CLEAR BS BILAT. DENIES ANY SOB/CP/PRESSURE AT THIS TIME. ON TELE #23 SHOWING NRS WITH HR 80S. NO EDEMA NOTED WITH IV TO RH. ABD SOFT, NONTENDER WITH ACTIVE BS X4. REPORTS FREQUENT EPISODES OF N/V AND CHRONIC DIARRHEA WITH INCONTINENCE. ANURIC WITH ESRD WITH HD T//S. RCW PERMACATH IN PLACE. PT REPORTED HE MISSED LAST HD TX D/T WEAKNESS. REPORTS HE IS AMBULATORY WITH POOR ACTIVITY TOLERACE AND EASILY FATIGUES. NOTED WITH HYPERPIGMENTATION SPOTS TO LUE AND BLE. NO OPEN WOUNDS NOTED. CALL LIGHT IN REACH NEEDS ATTENDED.
--- NOTE | 2019-02-14 08:05 | NUR ---
MADE AWARE BY PLANER SETUP OPERATOR PT'S B/P IS LOW ONCE MORE. PT HAS PRN ORDER FOR PROAMATINE. MEDICAITON PULLED AND GIVEN PER ORDER. B/P 43/43 (48). [facility] SENT TO ATTENDING RESIDENT DR. AL. AWAITING FURTHER ORDERS.
--- NOTE | 2019-02-14 08:25 | NUR ---
SPOKE WITH DR. AL WHO EVALUATED THE PT. INQUIRED ABOUT CHANGING PROAMATINE TO SCHEDULE, STATED HE WOULD CHANGE ORDER.
[2019-02-14 08:55] VITALS: BP 82/48
--- NOTE | 2019-02-14 08:55 | NUR ---
1HR POST PROAMATINE B/P 82/48(59). WITH NEW FLUID ORDER OF NS AT 50ML/HR INFUSING. NO CHANGE FROM BASELINE, REMAINS SLEEPY BUT EASILY AROUSABLE AND FATIGUED, NO CHANGES TO MENTATION OR OTHER NOTICIBLE CHANGES. DR. AL MADE AWARE VIA PAGE [facility]ATE OF LATEST B/P AWAITING MD CALL BACK OR FURTHER ORDERS. CONT TO MONITOR.
--- NOTE | 2019-02-14 11:20 | NUR ---
PT UNDER CARE OF DR. ZAPIEN, MADE AWARE OF LATEST B/P 83/45(58) ON LT, 81/49(60) ON RT. PER MD TO CONT HYDRATION. PT HAD EPISODE OF DIARRHEA, PERICARE PROVIDED BY BANK COMPLIANCE OFFICER. NO FURTHER ORDERS AT THIS TIME. CONT TO MONITOR. CALL LIGHT IN REACH. NEEDS ATTENDED TO.
--- NOTE | 2019-02-14 14:25 | NUR ---
Initial Nutrition Assessment: Dx: Dehydration PMHx: HIV, ESRD on HD T-Th-S, Chronic Hypotension PSHx: R chest tunneled catheter Labs: Na 132L, K 3.1L, BG 72L, BUN 64H, Cre 9.4H, Alb 2.9L, Ca 7.5L, Phos 11.5H, AST 66H, ALT 65H, TG 210H, HgA1c 4.1L Meds: Megace, Phoslo, Protonix, NaCl IV, Zofran Diet: Renal diet x 0day PO Intake: Ht: 5'9 Wt: 107 lb, 49 kg BMI: 15.9 kg/m2 (Underweight) Bed scale: IBW: 160 lb, 73 kg %IBW: 67 UBW: Age: 39 yrs old/Male Food Allergies: NKFA Skin:hyperpigmented macules to BUE and BLE. Simone: 20 Edema: none GI: abd is soft and flat w/ active bowel sounds. Last BM: 02/14/19, diarrhea w/ incontinence Pt seen earlier today. In bed, covered in blankets. Pt reported of good appetite, chronic diarrhea and food preferences. Pt is hesitant to engage in RD interview and only choose to asnwer certain questions. Pt reported that he ate all the eggs, burkinan toast and coffee this morning. Pt also verified intermittent diarrhea. Pt agreed to RD rec for ONS Nepro. RD to note flavor and food preferences in [employer]. Consult received for poor appetite and Hx of HIV. Trigger received: appears underweight/malnourished, N/V/D >3days, poor PO intake >3days. Problem with: N/V/D: yes C: no Problems with: Chewing: no Swallowing: no Current appetite: poor Recent wt change: none %wt change: n/a Vitamin/Supplement use: potassium, VIT D3 Special diet at home: Renal diet Physical activity: none, pt w/ generalized weakness. Nutrition education: pt is not receptive at this time. Will try by next RD visit. Food-drug interactions? Megace-take w/ meals to avoid GI distress, Education given? no Estimated Nutritional Needs Based on actual body weight 49 kg Energy: 6794-7578 kcal/d (30-35 kcal/kg for wt gain promotion) Protein: 59-64 g/d (1.2-1.3 g/kg for Renal dz on dialysis) Fluid: per doctor (Renal Dz) Nutrition Diagnosis 1. Underweight r/t chronic illness AEB BMI 15.9 kg/m2 and 67% IBW. 2. Inadequate nutrient intake r/t poor appetite AEB pt's report of decreased appetite and PO intake <75% of meals. 3. Altered GI function r/t unknown etiology AEB pt's report. Intervention 1. Recommend Banatrol TID. Continue Megace. 2. Recommend ONS Nepro BID. ONS will provide additional 850 kcal, 38.2 gm protein daily. Monitor/Evaluate Goal: PO intake at least 75% of estimated needs Monitor: PO intake, Labs, GI function F/U in 2-3 days as high risk 02/16-02/17
--- NOTE | 2019-02-14 14:25 | NUR ---
1. Recommend Banatrol TID. Continue Megace. 2. Recommend ONS Nepro BID. ONS will provide additional 850 kcal, 38.2 gm protein daily.
--- NOTE | 2019-02-14 14:45 | NUR ---
DR. ZAPIEN MADE AWARE OF LOW B/P 78/45 MAP 54, AWARE OF NEW ORDER FOR PROAMATINE 15MG Q8HP IS NOT DUE YET SINCE LAST DOSE WAS GIVE BEFORE 0800, PER OK TO GIVEN DOSE NOW SINCE B/P IS LOW. CONT TO MONITOR.
[2019-02-14 16:00] VITALS: BP 84/48
--- NOTE | 2019-02-14 16:00 | NUR ---
DR. ZAPIEN MADE AWARE OF LATEST B/P 84/48 WITH MAP 60 VIA PAGE GATE, AWAITING FURTHER ORDERS.
--- NOTE | 2019-02-14 17:25 | NUR ---
NOTED ORDER FOR BOLUS 500ML TO BE GIVEN. IVF BOLUS STARTED ORDER. PT TOLERATED WELL.
[2019-02-14 18:45] VITALS: BP 87/47
--- NOTE | 2019-02-14 18:45 | NUR ---
PT RESTING COMFORTABLY AT THIS TIME. DENIES ANY PAIN OR DISCOMFORT. HAD EPISODES OF WATERY DIARRHEA X3 SPECIMEN COLLECTED AND SENT TO LAB ORDERED BY MD. PT HAS 500ML BOLUS FOR HYPOTENSION WITH 1ST POST BOLUS B/P AT 87/47 MAP 60. WITH ORDER FOR HD TX LATER TONIGHT. CALL LIGHT IN REACH NEEDS ATTENDED TO.
[2019-02-14 19:15] VITALS: BP 92/49
--- NOTE | 2019-02-14 20:16 | NUR ---
HD NURSE WITH PATIENT AT THIS TIME.
[2019-02-14 22:06] VITALS: BP 90/44
--- NOTE | 2019-02-15 00:15 | NUR ---
HD T3BCHOSGE ZERO LITERS OUT. PRO-AMATINE GIVEN. NO COMPLAINT OF PAIN AT THIS TIME. PT APPEARS TO BE DROWSY, PT IS ALERT AND ORIENTED X4, CALM AND COOPERATIVE WITH CARE. SAFETY AND COMFORT MEASURES MAINTAINED, BED IN LOWEST POSITION, CALL LIGHT WITHIN REACH. WILL CONTINUE TO MONITOR AT THIS TIME.
--- NOTE | 2019-02-15 04:11 | NUR ---
PT IS RESTING BED WITH EYE CLOSED AT THIS TIME. NO ACUTE DISTRESS NOTED. NO S/S OF PAIN NOTED, SAFETY AND COMFORT MEASURES MAINTAINED, BED IN LOWEST POSITION, CALL LIGHT WITHIN REACH.
--- NOTE | 2019-02-15 05:10 | NUR ---
PT HAS RESTED IN INTERMITTENT INTERVALS THROUGHOUT THE SHIFT, NO ACUTE DISTRESS NOTED. NO COMPLAINT OF PAIN AT THIS TIME. PT IV INFUSING AND INTACT, HD WAS COMPLETED YESTERDAY, 0 LITERS OUT, PT STILL COMPLAINS OF WATERY STOOLS. PT HAS BEEN ALERT AND ORIENTED X4, CALM AND COOPERATIVE WITH CARE, SAFETY AND COMFORT MEASURES MAINTAINED, BED IN LOWEST POSITION, CALL LIGHT WITHIN REACH, WILL ENDORSE CONTINUITY OF CARE TO THE ONCOMING RN.
[2019-02-15 06:28] LABS: BASOPHIL % 0.2 % (0-2); PLATELET COUNT 206 x10^3mcL (130-400)
[2019-02-15 06:36] VITALS: BP 89/50
[2019-02-15 06:56] LABS: CALCIUM 7.2 mg/dL (8.5-10.1); CARBON DIOXIDE 24.9 mmol/L (21-32); MAGNESIUM 1.6 mg/dL (1.8-2.4); PHOSPHOROUS 3.3 mg/dL (2.5-4.9)
[2019-02-15 07:01] LABS: RED CELL DISTRIBUTION WIDTH 16.6 % (11.5-14.5)
--- NOTE | 2019-02-15 07:15 | NUR ---
RECEIVED BEDSIDE REPORT FROMNIGHT SHIFT NURSE. PATIENT IS STABLE, NO APPARETN SIGNS OF PAIN, SOB, OR RESPIRATORY DISTRESS. ON ROOM AIR. PATIENT IS RESTING COMFORTABLY IN BED. IV TO R HAND IS INFUSING NS AT 50ML/HR. NO EDEMA OR ERYTHEMA NOTED AT SITE. CALL LIGHT WITHIN REACH, BED IN LOW POSITION, BED RAILS UP X2. QUESTIONS AND CONCERNS ADDRESSED. PATIENT DENIES OTHER NEEDS AT THIS TIME. SAFETY RPECAUTIONS IN PLACE.
[2019-02-15 08:28] LABS: CREATININE SERUM 4.8 mg/dL (0.7-1.3); POTASSIUM SERUM 2.2 mmol/L (3.5-5.1)
--- NOTE | 2019-02-15 08:33 | NUR ---
RECEIVED CALL FROM LAB REPORTING CRITICAL VALUES FOR POTASSIUM 2.2 AND CREATININE 4.8. PAGED DR ZAPIEN TO REPORT RESULTS. AWAITING MD CALL BACK.
[2019-02-15 08:48] VITALS: BP 84/47
--- NOTE | 2019-02-15 09:22 | NUR ---
ADMINISTERED MORNING MEDICATION. PATIENT IS STABLE, NO APPARENT SIGNS OF PAIN, SOB, OPR RESPIRATORY DISTRESS. EDUCATED PATIENT ON NEED FOR MEDICATION AND ADVERSE EFFECTS. PATIENT VERBALIZED UNDERSTANDING, SAFETY PRECAUTIONS IN PLACE. PATIENT DENIES OTHER NEEDS AT THIS TIME.
--- NOTE | 2019-02-15 10:30 | NUR ---
PATIENT IS RECEIVEING AN IV ANTIBIOTIC AND HAS ANOTHER DUE AT 1100. PATIENT ALSO HAS POTASSIUM CHLORIDE (k RIDER) AT 1000. MADE DR NASCIMENTO AWARE. PER DR ZAPIEN, GIVE POTASSIUM CHLORIDE BEFORE THE SECOND ANTIBIOTIC SCHEDULED AT 1100.
--- NOTE | 2019-02-15 11:31 | NUR ---
PATIENT SOILED HIMSELF. PATIENT IS HAVING FREQUENT WATERY STOOLS. COMPOSITE TECHNICIAN NURSE REPORTED STOOL SAMPLE HAS BEEN COLOCTED AND SENT TO LAB FOR CULTURE. CHANGED BED LINNINES AND PATIENT GOWN. PATIENT DENIES OTHER NEEDS AT THIS TIME. QUESTIONS AND CONCERNS ADDRESSED, SAFETY RPECAUTIONS IN PLACE.
--- NOTE | 2019-02-15 11:32 | NUR ---
MD GIBSON, CHARGE NURSE AND RESIDENT TEAM AT BEDSIDE DOING ROUNDS.
[2019-02-15 14:30] VITALS: BP 74/43
--- NOTE | 2019-02-15 16:23 | NUR ---
ADMINISTERED MEDICATION PER EMAR. PATIENT IS STABLE NO APPARENT SIGNS OF PAIN, SOB, OR RESPIRATORY DISTRESS. EDUCATED PATIENT ON NEED FOR MEDICATION AND ADVERSE EFFECTS TO REPORT. PATIENT VERBALIZES UNDERSTANDING OF EDUCATION. PATIENT DENIES OTHER NEEDS. SAFETY PRECAUTIONS IN PLACE.
--- NOTE | 2019-02-15 17:38 | NUR ---
PAGED MD ZAPIEN TO MAKE HERE AWARE OF LOW BP FOR PATIENT. BP 80/49. MAP 59. HR 80. WAITING FOR MD TO CALL BACK.
[2019-02-15 18:06] VITALS: BP 80/49
--- NOTE | 2019-02-15 18:37 | NUR ---
PATIENT IS STABLE NO APPARENT SIGNS OF PAIN, SOB, OR RESPIRATORY DISTRESS. PATIENT IS ON ROOM AIR, RESPIRATIONS EVEN, NOT LABORED. STOOL SAMPLE HAS BEEN COLLECTED AND TAKEN TO LAB. ON TELE 23. SCD'S IN PLACE. PATIENT IS A HD PATIENT, ANURIC. GENERALIZED WEAKNESS. HYPERPIGMENTATION TO BLE. IV INFUSING WELL. NO EDEMA OR ERYTHEMA NOTED. QUESTIONS AND CONCERNS ADDRESSED, SAFETY PRECAUTIONS IN PLACE. PATIENT DENIES OTHER NEEDS AT THIS TIME. WILL ENDORSE CARE TO HOSPITAL CLEANER NURSE.
--- NOTE | 2019-02-15 19:30 | NUR ---
REC'D PT FROM DAY NURSE. FAMILY AT BEDSIDE. PT RESTING IN BED. AAOX4, SPEECH CLEAR, FOLLOWS COMMANDS. TELE 23. DENIES CP, DIZZINESS, OR PALPITATIONS. NO EDEMA NOTED. DENIES RESP DISTRESS OR SOB. BREATHING EVEN/UNLABORED ON RA. ABD SOFT/FLAT. DENIES ABD PAIN, TENDERNESS, OR N/V. ANURIC. LAST HD 02/14 0 OUT VIA R UPPER CHEST PERMACATH. GEN WEAKNESS. AMBULATORY WITH MIN ASSIST. DARK DISCOLORATION BLE. REPORTS PAIN TO RH IV SITE, K INFUSION REDUCED TO 15 ML/HR. ICE PACK APPLIED. CALL LIGHT WITHIN REACH, BED AT LOWEST POSITION. WILL CONTINUE TO MONITOR.
[2019-02-15 20:56] VITALS: BP 86/52
--- NOTE | 2019-02-16 01:00 | NUR ---
PT SLEEPING WITH EYES CLOSED. NO SIGNS OF DISTRESSED NOTED. EVEN AND UNLABORED BREATHING. BED AT LOWEST POSITION. WILL CONTINUE TO MONITOR.
--- NOTE | 2019-02-16 01:07 | NUR ---
SPOKE TO DR. VILLA. MADE AWARE TO CHANGE CMV CX TO BLOOD @ 1300
--- NOTE | 2019-02-16 04:05 | NUR ---
I HAVE REVIEWED THE DATA COLLECTION BY RN: BORIS HERNANDEZ ENTERED ON 02/15-02/16 I CONCUR WITH THE DATA AND ANY EXCEPTIONS OR COMMENTS ARE LISTED BELOW:
[2019-02-16 05:06] VITALS: BP 87/50
--- NOTE | 2019-02-16 05:39 | NUR ---
PT RESTING IN BED. EASILY AROUSED. DUE MEDS GIVEN. BP-87/50 PRN MIDODRINE GIVEN PER ORDER. NO COMPLAINTS AT THIS TIME. ONE EPISODE OF DIARRHEA LAST NIGHT. HD TODAY. CALL LIGHT WITHIN REACH. BED AT LOWEST POSITION. WILL ENDORSE TO DAY NURSE.
[2019-02-16 06:20] LABS: BASOPHIL % 0.1 % (0-2); PLATELET COUNT 208 x10^3mcL (130-400)
[2019-02-16 06:37] LABS: CALCIUM 7.9 mg/dL (8.5-10.1); CARBON DIOXIDE 14.6 mmol/L (21-32); MAGNESIUM 1.8 mg/dL (1.8-2.4); PHOSPHOROUS 3.9 mg/dL (2.5-4.9); POTASSIUM SERUM 3.7 mmol/L (3.5-5.1)
[2019-02-16 06:44] LABS: RED CELL DISTRIBUTION WIDTH 17.1 % (11.5-14.5)
[2019-02-16 07:08] LABS: CREATININE SERUM 6.8 mg/dL (0.7-1.3)
[2019-02-16 07:25] VITALS: BP 93/54
--- NOTE | 2019-02-16 07:30 | NUR ---
RECEIVED PT RESTING IN BED. NO ACUTE DISTRESS. SLEEPING BUT EASILY AROUSABLE. ON HEMODIALYSIS, SCHEDULED FOR TODAY. RIGHT UPPER CHEST PERMACATH. ANURIC. IV TO LFA WITH NO REDNESS OR SWELLING. BED IN LOW POSITION, CALL LIGHT WITHIN REACH. WILL CONTINUE TO MONITOR.
[2019-02-16 11:39] VITALS: BP 93/56
--- NOTE | 2019-02-16 12:53 | NUR ---
PT IN NO ACUTE DISTRESS. SLEEPING BUT AROUSABLE. EQUAL CHEST RISE AND FALL. NO PAIN NOTED. R UPPER TUNNELED CATH WITH DRESSING C/D/I. IV TO R HAND, NO REDNESS OR SWELLING. CALL LIGHT WITHIN REACH. WILL CONTINUE TO MONITOR.
--- NOTE | 2019-02-16 13:54 | NUR ---
Follow-up Nutrition Assessment: 256T/A ZEENAT GARCIA HR FU Dx: Dehydration PMHx: HIV, ESRD on HD T-Th-S, Chronic hypotension Labs: (02/16): BUN 31.0H, CREAT 6.8H, CA 7.9L, AST 66H, ALT 65H, A1C 4.1L Meds: Colace, flagyl, megace, morphine, phoslo, Pro-Amatine, zofran Diet: Renal PO Intake: (02/16) breakfast 100% Weights: (02/16) 49.8 kg (02/14) 48.8 kg Skin: intact (permacath) Simone: 20 I/Os: 2375/4 Edema: none GI: c/o chronic diarrhea Last BM: 02/15 RDN Visit (02/16): Patient was sleeping. Per VIDHYA Espitia, pt does not have any N/V at this time but is having diarrhea. RN mentioned that patient said that he has had diarrhea for years. Patient has good PO intake. Per progress note (614), plan is to continue with HD and current plan of care and DC planning once cleared by consultants. Estimated Nutritional Needs based on actual body weight 49 kg Energy: 5211-3322 kcal/d (30-35 kcal/kg) Protein: 59-64 g/d (1.2-1.3 g/kg) Fluid: per MD (HD patient) Nutrition Diagnosis 1. Underweight related to chronic illness as evidenced by BMI 15.9 kg/m2 and 65% IBW. (ongoing) 2. Inadequate nutrient intake related to poor appetite as evidenced by pt's report of decreased appetite and PO intake <75% of meals. (improving) 3. Altered GI function related to unknown etiology as evidenced by pt's report of diarrhea. (ongoing) Intervention 1. Recommend continuing Renal diet w/Nepro BID. Monitor/Evaluate Goal: Have pt meet at least 75% of estimated needs Monitor: PO intake, Labs, GI function F/U in 3-5 days as moderate risk 02/19-
--- NOTE | 2019-02-16 13:54 | NUR ---
1. Recommend continuing Renal diet w/Nepro BID.
--- NOTE | 2019-02-16 15:00 | NUR ---
HEMODIALYSIS STARTED AT THIS TIME. HORTICULTURE INSTRUCTOR AT BEDSIDE. PT IN NO ACUTE DISTRESS. RESTING IN BED. CALL LIGHT WITHIN REACH. WILL CONTINUE TO MONITOR.
[2019-02-16 16:15] VITALS: BP 93/57
--- NOTE | 2019-02-16 18:25 | NUR ---
HEMODIALYSIS FINISHED. PT IN NO ACUTE DISTRESS. SLEEPING BUT EASILY AROUSABLE. RESP EVEN AND UNLABORED ON RA. IVF INFUSING, NO REDNESS OR SWELLING. HOB SLIGHTLY ELEVATED. R UPPER CHEST PERMACATH WITH DRESSING C/D/I. BED IN LOW POSITION, CALL LIGHT WITHIN REACH. WILL ENDORSE TO ONCOMING SHIFT.
--- NOTE | 2019-02-16 19:30 | NUR ---
AOX4. TELE #23, SR. LUNGS CLEAR ON RA. PULSES PALPABLE. NO EDEMA. BOWEL SOUNDS ACTIVE. C/O WATERY DIARRHEA. HD WITH TUNNEL CATH TO RCW, CDI. AMBULATES WITH ASSISTANCE. SKIN CDI. DENIES PAIN. IV TO R HAND, PATENT AND INFUSING. BED IN LOWEST POSITION, 2 SIDE RAILS UP, CALL LIGHT IN REACH. INSTRUCTED TO CALL FOR ASSISTANCE.
[2019-02-16 20:30] VITALS: BP 92/49
--- NOTE | 2019-02-17 03:28 | NUR ---
RESTING IN BED WITH EYES CLOSED. BREATHING E/U. NO ACUTE DISTRESS NOTED. WILL CONTINUE TO MONITOR.
[2019-02-17 06:59] LABS: CALCIUM 6.8 mg/dL (8.5-10.1); CARBON DIOXIDE 23.5 mmol/L (21-32)
[2019-02-17 07:02] VITALS: BP 93/53
[2019-02-17 07:05] LABS: BASOPHIL % 0.1 % (0-2); PLATELET COUNT 180 x10^3mcL (130-400)
[2019-02-17 07:07] LABS: CREATININE SERUM 4.6 mg/dL (0.7-1.3); POTASSIUM SERUM 2.6 mmol/L (3.5-5.1)
--- NOTE | 2019-02-17 07:30 | NUR ---
RECEIVED PT IN NO ACUTE DISTRESS. SITTING UP IN BED. DRESSING TO R UPPER CHEST PERMACATH C/D/I. IV TO R HAND, NO REDNESS OR SWELLING NOTED. PT CONTINUES TO REPORT DIARRHEA, HAD 1 BM THIS AM. USING BSC. HOB ELEVATED. BED IN LOW POSITION, CALL LIGHT WITHIN REACH. WILL CONTINUE TO MONITOR.
[2019-02-17 07:57] LABS: RED CELL DISTRIBUTION WIDTH 16.6 % (11.5-14.5)
[2019-02-17 08:12] VITALS: BP 99/48
--- NOTE | 2019-02-17 11:06 | NUR ---
PT RESTING IN BED. NO ACUTE DISTRESS. RESP EVEN AND UNLABORED ON RA. HOB ELEVATED. BSC WITHIN EASY REACH. IVF INFUSING, NO REDNESS OR SWELLING TO IV SITE. CALL LIGHT WITHIN REACH. WILL CONTINUE TO MONITOR.
[2019-02-17 12:17] VITALS: BP 95/61
--- NOTE | 2019-02-17 14:09 | NUR ---
JAY FROM DIALYSIS MADE AWARE THAT PT HAS AN ORDER FOR HD TOMORROW.
[2019-02-17 16:27] VITALS: BP 94/61
--- NOTE | 2019-02-17 18:51 | NUR ---
PT IN NO ACUTE DISTRESS. RESTING IN BED WATCHING TV. BREATHING EVEN AND UNLABORED ON RA. CONTINUES TO REPORT DIARRHEA, USING BSC. IVF INFUSING, NO REDNESS OR SWELLING TO R HAND IV. R UPPER CHEST PERMACATH DRESSING C/D/I. SCHEDULED FOR HD TOMORROW IN AM, PT AWARE. FALL PRECAUTIONS. BED IN LOW POSITION, CALL LIGHT WITHIN REACH. WILL ENDORSE TO ONCOMING SHIFT.
--- NOTE | 2019-02-17 19:20 | NUR ---
AOX4. TELE #23, SB, HR 57. LUNGS CLEAR ON RA. PULSES PALPABLE. NO EDEMA. BOWEL SOUNDS ACTIVE. C/O MULTIPLE EPISODES WATERY DIARRHEA > 3 DAYS. HD WITH TUNNEL CATH TO RCW, CDI. HD SCHEDULED FOR 02/18/19. AMBULATES WITH ASSISTANCE. SKIN CDI. DENIES PAIN. IV TO R HAND, PATENT AND INFUSING. BED IN LOWEST POSITION, 2 SIDE RAILS UP, CALL LIGHT IN REACH. INSTRUCTED TO CALL FOR ASSISTANCE.
[2019-02-17 19:25] VITALS: BP 101/62
--- NOTE | 2019-02-18 02:15 | NUR ---
RESTING IN BED WITH EYES CLOSED. BREATHING E/U. NO ACUTE DISTRESS NOTED. WILL CONTINUE TO MONITOR.
[2019-02-18 04:29] VITALS: BP 90/55
--- NOTE | 2019-02-18 06:08 | NUR ---
NO ACUTE CHANGES. NO ACUTE DISTRESS NOTED. WILL ENDORSE TO ONCOMING RN.
[2019-02-18 06:39] LABS: BASOPHIL % 0.1 % (0-2); PLATELET COUNT 163 x10^3mcL (130-400)
[2019-02-18 06:46] LABS: CALCIUM 7.2 mg/dL (8.5-10.1); CARBON DIOXIDE 15.9 mmol/L (21-32); POTASSIUM SERUM 3.2 mmol/L (3.5-5.1)
[2019-02-18 07:05] LABS: CREATININE SERUM 5.4 mg/dL (0.7-1.3)
[2019-02-18 07:08] LABS: RED CELL DISTRIBUTION WIDTH 17.1 % (11.5-14.5)
--- NOTE | 2019-02-18 07:30 | NUR ---
RECEIVED PT IN NO ACUTE DISTRESS. SLEEPING BUT EASILY AROUSABLE. RESP EVEN AND UNLABORED ON RA. IVF INFUSING, NO REDNESS OR SWELLING TO IV SITE. BSC WITHIN REACH. BED IN LOW POSITION, CALL LIGHT WITHIN REACH. WILL CONTINUE TO MONITOR.
[2019-02-18 08:10] VITALS: BP 94/51
--- NOTE | 2019-02-18 10:05 | NUR ---
SWELLING NOTED AROUND R HAND IV SITE. IV DC'D WITH CATHETER INTACT. ATTEMPTED TO START NEW IV, UNSUCCESSFUL. PT HARD STICK. PT DOES NOT WANT NEW IV ACCESS. STEPHENIE SORT WORKER MADE AWARE, IV ANTBX CHANGED TO ORAL ROUTE. WILL CONTINUE TO MONITOR.
[2019-02-18 12:08] VITALS: BP 93/55
--- NOTE | 2019-02-18 12:10 | NUR ---
HEMODIALYSIS STARTED AT THIS TIME. PULVERIZER MILL OPERATOR AT BEDSIDE. PT IN NO ACUTE DISTRESS. SITTING UP IN BED WATCHING TV. CALL LIGHT WITHIN REACH. WILL CONTINUE TO MONITOR.
--- NOTE | 2019-02-18 15:20 | NUR ---
HEMODIALYSIS FINISHED AT THIS TIME. 0 ML TAKEN OUT. PT IN NO ACUTE DISTRESS. RESTING IN BED WITH EYES CLOSED. CALL LIGHT WITHIN REACH. WILL CONTINUE TO MONITOR.
--- NOTE | 2019-02-18 16:29 | NUR ---
PT DISCHARGED TO HOME IN NO ACUTE DISTRESS. AWAKE, ALERT, AND ORIENTED. VSS. TRANSPORTED VIA WHEELCHAIR. DISCHARGE EDUCATION PROVIDED, PT VERBALIZED UNDERSTANDING. INSTRUCTED PT TO FOLLOW UP WITH PCP. TELE REMOVED. BELONGINGS WITH PT. ANNA JACOB ACCOMPANIED PT TO LOBBY.
== END 2019-02-18 16:31 | disposition home or self-care (01) | DRG 249 ==
LOC: ED 22:53 → DU 02-14 02:32 → MU 02-18 15:03
PROVIDERS: Emergency Medicine; Internal Medicine; ADMIT Internal Medicine
DX: E86.0 Dehydration (principal); K52.9 Noninfective gastroenteritis and colitis, unspecified; E43 Unspecified severe protein-calorie malnutrition; I95.89 Other hypotension; E87.2 Acidosis; I12.0 Hypertensive chronic kidney disease with stage 5 chronic kidney disease or end stage renal disease; E83.39 Other disorders of phosphorus metabolism; E87.1 Hypo-osmolality and hyponatremia; N18.6 End stage renal disease; R00.1 Bradycardia, unspecified; E87.6 Hypokalemia; Z68.1 Body mass index [BMI] 19.9 or less, adult; Z99.2 Dependence on renal dialysis
CPT/HCPCS: 36600; 83880; 87046; 87046-59; G0378; J1644; J1885; J1956; J2405; J2543; J3480; J3490; J7030; J7040; J7050

== ENCOUNTER 2019-03-02 05:56 | Inpatient (IN) | payer OTHER ==
[~2019-03-02] VITALS: Ht 175.3 cm; Wt 52.5 kg
--- NOTE | 2019-03-02 06:07 | NUR ---
PT BIB FOR SEVER DIARRHEA STARTING LAST NIGHT. PT STS HE HAS HAD "NON STOP" DIARRHEA ALL NIGHT. PT STS HE THE LAST TIME HE AMBULATED TO THE RESTROOM, HE HAD 1 EPISODE OF SYNCOPE. THAT IS WHEN HE CALLED 911. PT STS THAT HE IS HAVING GENERALIZED BODY WEAKNESS. PT A/O X4. PT DOES HAVE SLIGHT FEVER. PT STS HE HAS NOT HAD IS HIV MEDICATION. NO S/S OF DISTRESS. RESP E/U. COMFORT MEASURES IMPLEMENTED. WILL CONTINUE TO MONITOR.
--- NOTE | 2019-03-02 06:15 | NUR ---
LAB AT BEDSIDE FOR BLOOD DRAW
--- NOTE | 2019-03-02 06:39 | NUR ---
PER DR NÚÑEZ, START IV FLUIDS AT 120ML/HR. UNTIL LABS ARE DRAW. BP WNL.
--- NOTE | 2019-03-02 06:58 | NUR ---
PT MEDICATED PER ORDER. PT VERBALIZED UNDERSTANDING OF MEDICATION TEACHING. SEE EMAR FOR DETAILS.
--- NOTE | 2019-03-02 06:59 | NUR ---
PT STS HE DOESN'T ALWAYS URINATE. PT GIVEN URINAL AT BEDSIDE.
--- NOTE | 2019-03-02 07:12 | NUR ---
PT MOVING AROUND IN [facility], PT STS THAT HIS BODY HURTS ALL OVER. PT MEDICATED FOR PAIN. WILL CONTINUE TO MONITOR.
[2019-03-02 07:15] LABS: PLATELET COUNT 306 x10^3mcL (130-400)
[2019-03-02 07:18] LABS: RED CELL DISTRIBUTION WIDTH 15.2 % (11.5-14.5)
--- NOTE | 2019-03-02 07:22 | NUR ---
[facility] TUB WORKER NURSE
--- NOTE | 2019-03-02 07:44 | NUR ---
UPON ENTERING PT'S ROOM PT IS VISIBLY IN PAIN WITH FREQUENT GRIMACES. CHECKED PT'S PRESSURE AND IT WAS BELOW NORMAL LIMITS. DR NÚÑEZ MADE AWARE AND CHANGED MORPHINE ORDER TO F[facility].
--- NOTE | 2019-03-02 07:49 | NUR ---
PT STATES "I FEEL LIKE IM GOING TO "
--- NOTE | 2019-03-02 07:53 | NUR ---
PT ABLE TO ANSWER QUESTIONS APPROPRIATELY AND FOLLOW COMMANDS. PT IS VISIBLY WEAK AND IS HAVING CONSTANT BOWEL INCONTINENCE
[2019-03-02 08:00] LABS: ALBUMIN 3.4 g/dL (3.4-5.0); ALKALINE PHOSPHATASE 169 U/L (46-116); ALT/SGPT 122 U/L (16-63); AST/SGOT 116 U/L (15-37); BILIRUBIN TOTAL 0.33 mg/dL (0.20-1.00); CALCIUM 9.8 mg/dL (8.5-10.1); CHLORIDE SERUM 95 mmol/L (98-107); GFR1 13 mL/min; GLUCOSE SERUM 217 mg/dL (74-106); POTASSIUM SERUM 3.5 mmol/L (3.5-5.1); SODIUM SERUM 130 mmol/L (136-145)
--- NOTE | 2019-03-02 08:05 | NUR ---
DANIEL KEE ABLE TO ESTABLISH EJ ON LT SIDE
--- NOTE | 2019-03-02 08:24 | NUR ---
PT CLEANED AND PLACED ON CLEAN CHUCKS AND CLEAN DIAPER. STOOL SAMPLE COLLECTED AND SENT TO LAB
[2019-03-02 08:25] LABS: CREATININE SERUM 5.1 mg/dL (0.7-1.3)
--- NOTE | 2019-03-02 08:34 | NUR ---
DR NÚÑEZ AT BEDSIDE FOR CENTRAL LINE INSERTION
--- NOTE | 2019-03-02 08:55 | NUR ---
LEVOPHED INITIATED AT 2MCG/MIN TO MAINTAIN MAP ABOVE 65
--- NOTE | 2019-03-02 09:00 | NUR ---
TO CT ON MONITOR VIA LORENA Bailon/ LAISHA KEE ACCOMPANYING.
[2019-03-02] MEDS ORDERED: CALCIUM ACETAT667 M3 PO (09:03)
[2019-03-02] MEDS ORDERED: MIDODRINE HCL10 MG PO (09:03)
[2019-03-02] MEDS ORDERED: POTASSIUM CHLO20 ME1 PO (09:04)
--- NOTE | 2019-03-02 09:05 | NUR ---
CALLED BENJAMIN QUINTANA TO COMPLETE PT'S MED REC.
--- NOTE | 2019-03-02 09:10 | NUR ---
BACK FROM CT.
--- NOTE | 2019-03-02 09:12 | NUR ---
TRANSPORTED PT TO CT ON [facility] WITH LEVOPHED RUNNING. PT RETURNED TO T1 AND PLACED BACK ON MONITORS.
--- NOTE | 2019-03-02 09:13 | NUR ---
LEVOPHED DRIP INCREASED TO 4MCG/MIN A RESULT OF MAP OF 63
--- NOTE | 2019-03-02 09:23 | NUR ---
PT ABLE TO REQUEST BEDPAN WHEN HE NEEDS TO DEFECATE.
[2019-03-02 09:38] LABS: BAND NEUTROPHIL 9 % (0-10); BASOPHIL 0 % (0-2); METAMYELOCTE 1 % (0-2); MONOCYTE 6 % (0-7); SEGMENTED NEUTROPHILS 62 % (37-75)
[2019-03-02 09:40] LABS: rbc morphology (normal/abnorm) ABNORMAL (NORMAL)
--- NOTE | 2019-03-02 10:20 | NUR ---
PATIENT BROUGHT IN BY VIDHYA INTERIANO AND EMT, VIA [facility]. VITALS: B/P: 103/72 MAP: 82, HR: 87, RR: 17, TEMPERATURE: 96.9 AND O2: 100%. PATIENT IS ON NASAL CANNULA, 2L. PATIENT IS BREATHING ADEQUATELY AND THERE ARE NO SIGNS OF RESPIRATORY DISTRESS. COURT SUPERVISOR IN PLACE, NSR. PATIENT HAS MOTTLED SKIN THROUGHOUT. PATIENT HAS BUE AND BLE ECCYMOSIS AND SCABS NOTED. PATIENT IS ALERT AND ORIENTED X4, PATIENT IS SLOW TO RESPOND AND LETHARGIC. PATIENT HAS IV ACCESS NOTED TO R WRIST, R GROIN CENTRAL LINE, AND LEFT EJ NOTED. LEVOPHED IS INFUSING AT 2 MCG/MIN. ABD IS SOFT AND FLAT. PATIENT IS A HEMODYALYSIS PATIENT, AND ANURIC. PER ER NURSE PATIENT HAS WATERY DIARRHEA. HEELS OFF LOADED WITH PILLOWS, CALL LIGHT WITHIN REACH, WILL CONTINUE TO MONITOR.
--- NOTE | 2019-03-02 10:26 | NUR ---
Total fluid resuscitation amount ordered for patient is 2000 mls. At time of admission/transfer to ICU, 2000 mls have infused. Last BP was 105/73 and [facility] is aware that BP was reassessed after fluid infusion completed.
--- NOTE | 2019-03-02 10:28 | NUR ---
PT REPORTED HE WAS A DIALYSIS AND ONLY PRODUCED URINE "SOMETIMES". PT REMINDED MULTIPED TIMES TO PROVIDE SAMPLE BUT WAS UNABLE TO
--- NOTE | 2019-03-02 10:45 | NUR ---
PATIENT HAD 100 ML OF WATERY DIARRHEA. PATIENT CLEANSED, LINENS CHAMGED. WILL CONTINUE TO MONITOR.
[2019-03-02 10:57] VITALS: BP 103/72
--- NOTE | 2019-03-02 11:37 | NUR ---
DR COURTNEY AT BEDSIDE, ALL UPDATED GIVEN, NO FURTHER ORDERS AT THIS TIME.
--- NOTE | 2019-03-02 11:50 | NUR ---
PATIENT HAD 65 ML OF WATERY DIARRHEA. PATIENT CLEANSED, LINENS AND GOWNS CHANGED. WILL CONTINUE TO MONITOR.
--- NOTE | 2019-03-02 12:35 | NUR ---
PATIENT HAD 900 ML OF WATERY DIARRHEA. PATIENT CLEANSED AND GIVEN NEW BED FUNES, PER PATIENT, STILL HAD THE URGE TO GO. WILL CONTINUE TO MONITOR.
--- NOTE | 2019-03-02 13:55 | NUR ---
DR JOHNSON AT BEDSIDE, ALL UPDATES PROVIDED. DR JOHNSON STATES HE WILL HAVE TPN ORDERED FOR PATIENT. WILL AWAIT ORDERS.
[2019-03-02 15:04] VITALS: BP 79/52
--- NOTE | 2019-03-02 18:07 | NUR ---
DR MEJIA AT BEDSIDE. ALL UPDATES GIVEN. PER DR MEJIA, WILL ORDER VANCO AND STOOL CULTURE FOR CDIF. WILL AWAIT ORDERS AT THIS TIME.
--- NOTE | 2019-03-02 19:08 | NUR ---
REPORT GIVEN TO VIDHYA HYDE. ALL QUESTIONS ANSWERED.
[2019-03-02 19:30] VITALS: BP 93/57
--- NOTE | 2019-03-02 19:30 | NUR ---
REC'D REPORT FROM MICHELE KEE TO ASSUME CARE. PT IS A/O X4, SPEECH CLEAR AND APPROPRIATE. PERRLA NOTED. EENT FREE OF DISCHARGE. R EJ IV INTACT AND PATENT, DSG CDI. RESPS E/U ON O2 2LPM VIA NC. LUNG SOUNDS DIMINISHED HARRY. CHEST RISE EQUAL AND SYMMETRICAL.CHEST WALL STABLE. DENIES ANY CP, SYNCOPE OR DIZZINESS. STRATEGIC ACCOUNT EXECUTIVE IN PLACE. BP 93/57 MAP 74, HR 130. LEVOPHED GTT INFUSING @ 2 MCG/MIN. PULSES PALPABLE X4. SKIN WARM AND DRY TO TOUCH. SKIN COLOR BROWN AND MOTTLED. NO EDEMA NOTED. IVF D5W WITH BICARD INFUSING @ 150ML/HR.GEN WEAKNESS NOTED. ABLE TO ASSIST WITH REPOSITIONING. ABD FLAT, SOFT, NONTENDER TO TOUCH. BOWEL SOUNDS HYPOACTIVE. PT WITH LOOSE BM. PT ANURIC. PT ON HD WITH RIGHT UPPER CHEST PERMACATH IN PLACE, DSG CDI. SCATTERED ECCHYMOSIS AND SCAB TO BUE/BLE. PT ABLE TO REPOSITION SELF WITH REMINDERS. CALL LIGHT WITHIN REACH. WILL CONTINUE TO MONITOR.
[2019-03-02 21:11] LABS: TOTAL PROTEIN, SERUM 14.1 g/dL (6.4-8.2)
--- NOTE | 2019-03-02 21:31 | NUR ---
PT ASSISTED TO BED FUNES, WATERY STOOL NOTED. GOOD EARLE CARE PROVIDED AT THIS TIME.
--- NOTE | 2019-03-02 22:13 | NUR ---
BP 101-71 MAP 85, LEVOPHED TITRATED TO 1 MG/MIN
--- NOTE | 2019-03-02 22:14 | NUR ---
BP 101-71 MAP 85, LEVOPHED TITRATED TO 1 MCG/MIN
--- NOTE | 2019-03-02 22:56 | NUR ---
PT ASSISTED ON BEDPAN, WATERY LOOSE STOOL NOTED. GOOD EARLE CARE PROVIDED. LINENS CHANGED.
[2019-03-02 23:14] VITALS: BP 91/62
--- NOTE | 2019-03-03 01:44 | NUR ---
PT ASSISTED ON BEDPAN, WATERY STOOL NOTED. GOOD EARLE CARE PROVIDED. LINENS CHANGED.
[2019-03-03 03:30] VITALS: BP 83/61
[2019-03-03 05:26] LABS: PLATELET COUNT 289 x10^3mcL (130-400)
[2019-03-03 05:45] LABS: RED CELL DISTRIBUTION WIDTH 15.4 % (11.5-14.5)
[2019-03-03 05:47] LABS: CREATININE SERUM 6.3 mg/dL (0.7-1.3)
[2019-03-03 05:57] LABS: CARBON DIOXIDE 29.6 mmol/L (21-32)
[2019-03-03 06:12] LABS: POTASSIUM SERUM 2.9 mmol/L (3.5-5.1)
[2019-03-03 06:14] LABS: BAND NEUTROPHIL 7 % (0-10); METAMYELOCTE 1 % (0-2); MONOCYTE 6 % (0-7); SEGMENTED NEUTROPHILS 63 % (37-75); rbc morphology (normal/abnorm) ABNORMAL (NORMAL)
[2019-03-03 06:15] LABS: PLATELET MORPHOLOGY PLATELETS NORMAL
--- NOTE | 2019-03-03 06:27 | NUR ---
REPORT K+ 2.[address] GARLAND, AWAITING FOR FURTHER ORDERS.
--- NOTE | 2019-03-03 06:33 | NUR ---
PTS BEDPAN EMPTIED 600ML WATERY STOOL. PT REQUESTED TO PLACE BEDPAN BACK AT THIS TIME. INSTRUCTED TO CALL FOR ASSISTANCE WHEN FINISHED. CALL LIGHT WITHIN REACH.
--- NOTE | 2019-03-03 07:15 | NUR ---
BP 67/35 MAP 50, LEVOPHED TITRATED TO 4 MCG/MIN.
--- NOTE | 2019-03-03 07:20 | NUR ---
RECIEVED REPORT FROM VIDHYA HYDE TO ASSUME ALL CARE. ALL QUESTIONS AND CONCERNS ADDRESSED. PATIENT IS A/O X4. ABLE TO FOLLOW COMMANDS AND MAKE NEEDS KNOWN. RESPIRATIONS ARE EQUAL AND SYMMETRICAL ON 2L NC. NO SIGNS OF RESP DISTRESS. PATIENT CURRENTLY ON LEVOPHED AT 4 MCG/MIN. D5W WITH 3 AMPS OF HCO3 INFUSING AT 150 ML/HR. IV NOTED TO LEJ AND RFA, BOTH SALINE LOCKES. IV FLUIDS INFUSING TO RIGHT FEMORAL CENTRAL LINE. HX OF ESRD, PT RECIEVED HD TUE//TUE. LAST HD WAS LAST TUESDAY, FILTRATION ONLY. PLAN FOR HEMODIALYSIS TODAY. PATIENT IS ANURIC. RIGHT UPPER CHEST ARY CATH IN PLACE CLAMPED WITH DRESSING C/D/I. ECCHYMOSIS AND DRY SCABS NOTED TO SARINA AND MERY SHERIF. PATIENT ABLE TO REPOSITION AND TURN SELF IN BED INDEPENDENTLY. BED TO LOWEST POSITION, SIDE RAILS UP X2, CALL LIGHT WITHIN REACH. WILL CONTINUE TO MONITOR.
[2019-03-03 07:36] VITALS: BP 75/40
--- NOTE | 2019-03-03 08:46 | NUR ---
STEPHENIE, SENIOR MAINFRAME PROGRAMMER ANALYST AT BEDSIDE TO ASSESS PATIENT. UPDATES PROVIDED AND POC DISCUSSED. WILL CONTINUE TO MONITOR.
[2019-03-03 12:07] VITALS: BP 107/69
--- NOTE | 2019-03-03 12:07 | NUR ---
HEMODIALYSIS FINISHED WITH NO OUTPUT, FILTRATION ONLY. PATIENT TOLERATED WELL. WILL CONTINUE TO MONITOR.
--- NOTE | 2019-03-03 12:42 | NUR ---
NIBP 106/69, MAP 84. LEVOPHED DRIP TITRATED DOWN FROM 6 TO 4 MCG/MIN. WILL CONTINUE TO MONITOR.
[2019-03-03 15:20] VITALS: BP 107/70
--- NOTE | 2019-03-03 15:45 | NUR ---
DR. MEJIA AT BEDSIDE TO ASSESS PATIENT. UPDATES PROVIDED AND POC DISCUSSED. WILL CONTINUE TO MONITOR.
--- NOTE | 2019-03-03 18:36 | NUR ---
COMPLETE BATH DONE WITH MINIMAL ASSIST. PATIENT UP TO CHAIR. AMBULATORY WITH SLOW, STEADY GAIT. COMPLETE LINEN AND GOWN CHANGED. PATIENT TOLERATED WELL. WILL CONTINUE TO MONITOR.
--- NOTE | 2019-03-03 18:51 | NUR ---
LEJ AND RFA IV DC'D WITH BOTH CATH TIPS INTACT. PATIENT TOLERATED WELL. WILL CONTINUE TO MONITOR.
--- NOTE | 2019-03-03 18:54 | NUR ---
PATIENT BACK TO BED INDEPENDENTLY. NO INCEIDENCE OCCURRED. WILL CONTINUE TO MONITOR.
[2019-03-03 19:31] VITALS: BP 94/63
--- NOTE | 2019-03-03 19:31 | NUR ---
REC'D REPORT FROM HEDY KEE TO ASSUME CARE. PT IS A/O X4, SPEECH CLEAR AND APPROPRIATE. PERRLA NOTED. EENT FREE OF DISCHARGE. L EJ IV INTACT AND PATENT, DSG CDI. RESPS E/U ON ROOM AIR. LUNG SOUNDS DIMINISHED HARRY. CHEST RISE EQUAL AND SYMMETRICAL. CHEST WALL STABLE. DENIES ANY CP, SYNCOPE OR DIZZINESS. SHIFT PRODUCTION ASSOCIATE IN PLACE SHOWING JUNCTIONAL RHYTHM. BP 94/63 MAP 74, HR 94. LEVOPHED GTT INFUSING @ 4 MCG/MIN. PULSES PALPABLE X4. SKIN WARM AND DRY TO TOUCH. SKIN COLOR BROWN AND MOTTLED. NO EDEMA NOTED. IVF D5W WITH 3 AMPS BICARB INFUSING @ 150ML/HR. GEN WEAKNESS NOTED. ABLE TO ASSIST WITH REPOSITIONING. ABD FLAT, SOFT, NONTENDER TO TOUCH. BOWEL SOUNDS HYPOACTIVE. PT WITH LOOSE BM. PT ANURIC. PT ON HD WITH RIGHT UPPER CHEST PERMACATH IN PLACE, DSG CDI. SCATTERED ECCHYMOSIS AND SCAB TO BUE/BLE. PT ABLE TO REPOSITION SELF WITH ASSIST. ALL NEEDS MET AT THIS TIME. CALL LIGHT WITHIN REACH. WILL CONTINUE TO MONITOR. WILL CONTINUE TO MONITOR.
--- NOTE | 2019-03-03 21:30 | NUR ---
EMPTIED PTS BEDPAN, ESTIMATED 500ML WATERY STOOL.
--- NOTE | 2019-03-03 21:53 | NUR ---
DR AGUIRRE (NEPHRO) AT BEDSIDE, UPDATED ON STATUS, NO NEW ORDERS GIVEN.
--- NOTE | 2019-03-03 22:41 | NUR ---
PT WITH C/O GEN BODY PAIN 03/14. MEDICATED WITH MORPHINE IVP, WILL MONITOR FOR EFFECTIVENESS.
[2019-03-03 23:19] VITALS: BP 95/57
--- NOTE | 2019-03-04 01:30 | NUR ---
PT WITH WATERY LOOSE BM, NOTED ESTIMATED 500ML IN BEDPAN. LOMOTIL PO GIVEN AT THIS TIME.
[2019-03-04 03:10] VITALS: BP 99/62
[2019-03-04 05:16] LABS: PLATELET COUNT 280 x10^3mcL (130-400)
[2019-03-04 05:21] LABS: RED CELL DISTRIBUTION WIDTH 15.4 % (11.5-14.5)
[2019-03-04 05:26] LABS: BAND NEUTROPHIL 7 % (0-10); METAMYELOCTE 1 % (0-2); MONOCYTE 6 % (0-7); PLATELET MORPHOLOGY PLATELETS NORMAL; SEGMENTED NEUTROPHILS 63 % (37-75); rbc morphology (normal/abnorm) ABNORMAL (NORMAL)
[2019-03-04 05:48] LABS: CALCIUM 7.3 mg/dL (8.5-10.1); CARBON DIOXIDE 32.9 mmol/L (21-32)
[2019-03-04 05:49] LABS: CREATININE SERUM 5.2 mg/dL (0.7-1.3); POTASSIUM SERUM 2.8 mmol/L (3.5-5.1)
--- NOTE | 2019-03-04 06:30 | NUR ---
PT REQUESTED TO PLACE BEDPAN AT THIS TIME. INSTRUCTED TO CALL FOR ASSISTANCE.
[2019-03-04 07:10] VITALS: BP 92/58
--- NOTE | 2019-03-04 07:10 | NUR ---
RECIEVED PT SLEEPING BUT AROUSABLE. ORIENTED TO PERSON, PLACE, TIME, AND PURPOSE OF STAY. PUPILS 3MM IN SIZE AND BRISK B/E. EENT FREE OF DISCHARGE. NO DRAINAGE FROM MOUTH, NOSTRILS, OR EARS. TRACHEA MIDLINE. NO JVD PRESENT. R UPPER CHEST PERMACATH INTACT, DRESSING CDI. ON ROOM AIR. BREATHING E/U. SYMMETRICAL CHEST WALL EXPANSION NOTED. NO SIGNS OF RESP DISTRESS NOTED. ABD IS SOFT, FLAT, AND SYMMETRICAL. R FEMORAL CVC INTACT, X3 PORTS PATENT, DRESSING CDI. TPN INFUSING @ 100ML/HR, LEVOPHED INFUSING @ 4MCG/MIN. SKIN IS WARM/DRY TO TOUCH, GARG/BROWN IN COLOR. CAP REFILL <3 SEC TO BUE AND BLE. NO EDEMA PRESENT. SCATTERED ECCHYMOSIS ALL THROUGHOUT BODY. SCAB NOTED TO BUE & BLE. X3 SIDE RAILS UP, BED IN LOWEST POSITION, CALL LIGHT WITHIN REACH.
--- NOTE | 2019-03-04 07:10 | NUR ---
RECIEVED REPORT FROM MARY ELLEN KEE. ALL QUESTIONS ANSWERED AND ADDRESSED. WILL RESUME CARE OF PT.
[2019-03-04 07:59] VITALS: Ht 175.3 cm; Wt 52.5 kg
--- NOTE | 2019-03-04 08:00 | NUR ---
TITRATED LEVOPHED TO 3 MCG/MIN. PT BP OF 100/60 MAP 76.
--- NOTE | 2019-03-04 08:48 | NUR ---
TITRATED LEVOPHED TO 4 MCG/MIN TO ACHIEVE MAP >65. PT'S BP OF 78/83 MAP 53.
--- NOTE | 2019-03-04 09:00 | NUR ---
PT REQUESTING FOR BED FUNES. LOOSE WATERY BM NOTED. 200CC OUT. PT CLEANED
[2019-03-04 09:42] LABS: PHOSPHOROUS 5.7 mg/dL (2.5-4.9)
[2019-03-04 09:44] LABS: ALBUMIN 2.2 g/dL (3.4-5.0)
[2019-03-04 11:14] VITALS: BP 109/66
--- NOTE | 2019-03-04 13:57 | NUR ---
REPORT GIVEN TO YVONNE KEE. ALL QUESTIONS ANSWERED AND ADDRESSED. WILL ENDORSE CARE.
--- NOTE | 2019-03-04 14:24 | NUR ---
Initial Nutrition Assessment Dx: Abd pain and sepsis PMHx:HIV, ESRD on HD TThSat, Chronic hypotension PSHx:permacath Labs:(03/04) K:2.8L, BH, BUN:24H, Cr:5.2H, Ca:7.3L, Phos:5.7H, H/H:11.4/35L Meds: D10%, Flagyl, Humulin, KCL, Levophed, Lomotil, Morphine, Pepcid, Phoslo, Pro-amatine, Sandostatin, Vancomycin, Zofran, Zosyn Diet: TPN: Dextrose:25% AA:5% via central line at 100ml/hr. TPN Intake: none noted on EMR Diet: Renal (03/02) L:15% D:20% (03/03) B:0% L:10% D:25% (03/04) no PO intake recorded I/O: (03/02) 2800/4200 (-1400ml)(03/03)4038/3600(+438ml) Ht: 69in, 5'9" Wt: 110#, 50.349kg BMI: 16.4kg/2m (underweight) Bed scale: 50.349kg IBW:160#, 73kg %IBW:69% UBW: unable to obtain. From previous RD note 01/2019 (120#) Age: 39 y/o male Food Allergies: NKFA Skin: scattered ecchymosis throughout body and scab to BUE/BLE Simone: 16 Edema: None GI:active bowel sounds Last BM: 03/04, watery and loose stools Nutrition consult: diarrhea and wasting syndrome Per H&P, pt was recently discharged 02/18/2019 fror intractable diarrhea and dehydration. Pt came to the ER with c/o generalized body cramps, increase in weakness and diarrhea. Previosu admission pt was negative for C diff and stool cultures. In the ER, lactic acid was elevated and sepsis protocol initiated, levophed started as patient was hypotensive. Pt states he never followed up with his HIV specialist for his medication. Per progress note 03/04, pt is currenty on TPN and Levophed 4mcg/min and states he feels better today with no cramping sensation. Plan: continue Levophed and titrate per protocol, TPN for nutritional support and HD as per renal. Spoke to psychological tests sales agent and RN who reports pt is on TPN 100ml/hr and tolerating. Pt's diarrhea has been improving. PO intake continues to be poor. Pt will have colonoscopy tomorrow with Dr. Yin. Blood sugars have been <180mg/dL despite high dextrose concentration. Problem with: N/V/C: no D: yes, but improving per RN Problems with: Chewing: Swallowing: No Current appetite: poor Recent wt change:-10# within the past month %wt change:8.3% (significant) Vitamin/Supplement use: Vitamin D and Nepro Special diet at home: Regular per admission assessment Physical activity:none per previous RD note Nutrition education given (specify specific nutrition education and handout given):no, pt received from previous admit Food-drug interactions?flgyl, diarrhea Education given?no Estimated Nutritional Needs Based on ideal body weight 73kg Energy: 1825-2190kcal/d (25-30kcal/kg for wt gain & ESRD on HD) Protein: 88-102 g/d (1.2-1.4g/kg for ESRD on HD Fluid: per doctor due to pt on HD Nutrition Diagnosis 1. Altered nutriton related labs related to renal failure as evidenced by elevated BUN:24, Creatinine:5.2 and Phosphorus:5.7. 2. Underweight related to HIV as evidenced by BMI:16.4kg/m2 and 69% of IBW. Intervention 1. Current TPN D:25%, AA:5% at 100ml/hr, provides 2520kcal, 120g protein and 2400ml total volume. This meets 115% caloric intake and 117% protein needs. GIR:8.28 2. Consider decreasing TPN to 65ml/hr to provide 1638kcal, 78g protein and 1560ml total volume. GIR:5.38mg/kg/min due to pt on HD with fluid restriction and GIR within limit. This meets 90% caloric needs and 89% protein needs. 3. Replete electrolytes and monitor BG levels. Monitor/Evaluate Goal: TPN intake at least 75% of estimated needs Monitor: TPN intake/tolerance, Labs, GI function F/U in 2-3 days as high risk:03/06-3
--- NOTE | 2019-03-04 15:15 | NUR ---
RECEIVED PT, REPORT GIVEN BY VIDHYA STANLEY. RESP EVEN AND UNLABORED. DENIES PAIN AT THIS TIME NO DISTRESS NOTED. WILL CONTINUE TO MONITOR.
--- NOTE | 2019-03-04 15:15 | NUR ---
PT GIVEN MORPHINE 1MG IVP FOR SHARP THROBBING RECTAL PAIN 03/14. PT REPOSITIONED FOR COMFORT. FLUIDS ENCOURAGED. CALL LIGHT WITHIN REACH.
[2019-03-04 16:00] VITALS: BP 113/68
--- NOTE | 2019-03-04 16:15 | NUR ---
HEARD VENTILATOR ALARM SOUNDING, ENTER ROOM AND NOTED PT ETT HAD BEEN DISPLACED. DR. BARBOUR ON UNIT, MADE AWARE OF ETT MOVEMENT. RESPIRATORY THERAPIST ON UNIT AND ENTERED ROOM. 100% BVM INTIATED BY RESPIRATORY. 1616: SUCCINYL CHOLINE 40MG IVP GIVEN 1620: INTUBATED BY DR. BARBOUR. 7.5ETT AND [address] BARBOUR KEEP PATIENT WELL SEDATED, VERSED DRIP TITRATED UP TO 7 MG/HR AND FENTANYL DRIP AT 2 MCG/KG/HR. RSS-5. ALSO, HAVE AT LEAST 3 PEOPLE WHEN REPOSITIONING PATIENT, ONE TO HOLD ETT IN PLACE.
--- NOTE | 2019-03-04 17:41 | NUR ---
RESP EVEN AND UNLABORED. NO DISTRESS NOTED. PT DENIES PAIN AT THIS TIME. DUE MEDS GIVEN. BLOOD SUGAR 161. 3 UNITS REG INSULIN GIVEN. CALL LIGHT WITHIN REACH. BED IN LOWEST POSITION.
--- NOTE | 2019-03-04 17:50 | NUR ---
INFORMED CONSENT FOR COLONOSCOPY ON 03/05/19 HAS BEEN SIGNED AND PLACED IN PT'S CHART.
--- NOTE | 2019-03-04 18:44 | NUR ---
RECEIVED ORDER FROM Hood CÁRDENAS/Tru BUITRAGO. ORDER NOTED AND CARRIED OUT.
--- NOTE | 2019-03-04 19:18 | NUR ---
RECEIVED REPORT FROM MARINA KEE. ASSUMING ALL CARE
[2019-03-04 19:20] VITALS: BP 111/79
--- NOTE | 2019-03-04 19:20 | NUR ---
RECEIVED PT LAYING IN BED. PT IS A/OX4. SPEECH IS CLEAR. ABLE TO MAKE NEEDS KNOWN. GCS=15. BREATHING IS E/U ON RA. LUNGS SOUND CLEAR DIMIN BILAT. SYMMETRICAL CHEST EXPANSION NOTED. S1/S2 HEART SOUNDS AUSCULTATED. CHEST WALL EQUAL AND SYMMETRICAL. DENIES ANY CP. HR 83, BP 111/79 MAP 88. LEVOPHED GTT INFUSING @ 4 MCG/MIN. RIGHT FEMORAL CVC WITH PORTS PATENT AND DRESSING CDI. PALPABLE PULSES X4 EXTREMITIES. SKIN IS WARM AND DRY. NO EDEMA NOTED. CAP REFILL < 3 SECS. GENERALIZED WEAKNESS. TPN INFUSING @ 100 ML/HR. ABD IS FLAT/SOFT, NONTENDER TO PALPATION. BOWEL SOUNDS HYPOACTIVE X4 QUADRANTS. PT NOTED WITH LOOSE WATERY STOOLS. PT IS ANURIC. PT ON HD WITH RIGHT UPPER CHEST PERMACATH IN PLACE WITH DRESSING CDI. SCATTERED ECCHYMOSIS AND SCABS NOTED TO BUE/BLE PT ABLE TO ASSIST WITH REPOSITIONING. BED IN LOW POSITION. CALL LIGHT IN REACH. WILL CONT TO MONITOR
--- NOTE | 2019-03-04 19:34 | NUR ---
PT IS AAOX4. RESP EVEN AND ULABORED. ON R/A. NO DISTRESS NOTED. DENIES PAIN OR DISCOMFORT AT THIS TIME. ENDORSED ALL CARE TO VIDHYA JOHNSON.
--- NOTE | 2019-03-04 19:36 | NUR ---
PT IS SEDATED ON VERSED AND FENTANYL. RSS 4. RESP EVEN AND UNLABORED. ON VENT WITH SETTING AT A/C, VT 650, FI02 40%, PEEP 5 RATE 16. RIJ CVC ALL PORTS PATENT, FLUSHED WITH GOOD BLOOD RETURN. PT ON BERIBED WITH TURNS DONE Q 2HOURS THROUGH OUT SHIFT. NO S/S OF PAIN OR DISTRESS AT THIS TIME. ALL CARE ENDORSED TO VIDHYA STARK.
--- NOTE | 2019-03-04 21:15 | NUR ---
NIBP 115/71, MAP 91. LEVOPHED TITRATED TO 2 MCG/MIN. WILL CONT TO MONITOR
--- NOTE | 2019-03-04 22:05 | NUR ---
DR. MEJIA AT BEDSIDE. UPDATED ON PT'S STATUS. PER DR. MEJIA, DC PO VANCOMYCIN. WILL CARRY OUT ORDER
--- NOTE | 2019-03-04 22:10 | NUR ---
DR. AGUIRRE AT BEDSIDE. UPDATED ON PT'S STATUS. NO NEW ORDERS
--- NOTE | 2019-03-04 22:25 | NUR ---
PT HAD A BM WITH WATERY BROWN COLORED STOOL NOTED, ABOUT 250 ML. PERICARE PROVIED
[2019-03-04 23:00] VITALS: BP 99/56
--- NOTE | 2019-03-05 01:00 | NUR ---
PT ASSISTED TO BED. PT HAD WATERY BROWN STOOL, ABOUT 300 ML. PERICARE PROVIDED
[2019-03-05 03:11] VITALS: BP 110/61
--- NOTE | 2019-03-05 03:50 | NUR ---
FULL BED BATH PROVIDED WITH YANELY WIPES IN PREPARATION FOR COLONOSCOPY TODAY. GOWN AND LINENS CHAGED. PERICARE PROVIDED. BED IN LOW POSITION. CALL LIGHT IN REACH. WILL CONT TO MONITOR
--- NOTE | 2019-03-05 05:00 | NUR ---
MANAGER SOCIAL RESPONSIBILITY AT BEDSIDE FOR AM LAB DRAW
[2019-03-05 05:20] LABS: BASOPHIL % 0.6 % (0-2); PLATELET COUNT 246 x10^3mcL (130-400)
[2019-03-05 05:22] LABS: RED CELL DISTRIBUTION WIDTH 15.1 % (11.5-14.5)
[2019-03-05 05:37] LABS: CALCIUM 8.6 mg/dL (8.5-10.1); CARBON DIOXIDE 21.3 mmol/L (21-32)
[2019-03-05 05:48] LABS: CREATININE SERUM 7.1 mg/dL (0.7-1.3); POTASSIUM SERUM 2.6 mmol/L (3.5-5.1)
--- NOTE | 2019-03-05 05:48 | NUR ---
DR. GARLAND MADE AWARE OF CRITICAL LAB RESULT: POTASSIUM 2.6. PER DR. GARLAND, WILL ORDER K-RIDER
--- NOTE | 2019-03-05 06:59 | NUR ---
REPORT GIVEN TO GI NURSE GIOVANNA RN VIA TELEPHONE. ALL QUESTIONS/CONCERNS ADDRESSED.
--- NOTE | 2019-03-05 07:10 | NUR ---
REPORT GIVEN TO MICHELE KEE. ALL QUESTIONS/CONCERNS ADDRESSED AT THIS TIME. ENDORSING ALL CARE
--- NOTE | 2019-03-05 07:30 | NUR ---
PATIENT IS IN BED, BED IS TO THE LOWEST POSITION. PATIENT IS ON ROOM AIR, BREATHING ADEQUATELY AND THERE ARE NO SIGNS OF RESPIRATORY DISTRESS. LONGWALL SHEARER OPERATOR IN PLACE, NSR. PATIENT IS ALERT AND ORIENTED, TO PERSON, PLACE AND TIME. PATIENT IS ABLE TO RESPOND TO COMMAND, TACTILE, VOICE AND PAIN. PATIENT HAS MOTTLED SKIN, SCABS AND BRUISES NOTED TO BLE, AND BUE. RIGHT UPPER CHEST ACCESS NOTED FOR DIALYSIS. PATIENT HAS R FEMORAL CENTRAL LINE NOTED. LEVOPHED IS INFUSING AT 2 MCG/MIN. TPN IS INFUSING AT 100 ML/HR. POTASSIUM CHLORIDE IS INFUSING AT 50 ML/HR. ABD IS SOFT AND FLAT. PATIENT IS ANURIC, AND HAS DIARRHEA. PATIENT STABLE, CALL LIGHT WITHIN REACH, WILL CONTINUE TO MONITOR.
[2019-03-05 07:34] VITALS: BP 83/50
--- NOTE | 2019-03-05 08:00 | NUR ---
COLONOSCOPY STARTED AT THIS TIME.
--- NOTE | 2019-03-05 08:40 | NUR ---
COLONOSCOPY FINISHED AT THIS TIME. PATIENT STABLE, WILL CONTINUE TO MONITOR.
--- NOTE | 2019-03-05 08:49 | NUR ---
PER OR NURSE THE COLONOSCOPY SHOWED INFLAMMATION.
--- NOTE | 2019-03-05 10:53 | NUR ---
DR MEJIA TELEPHONE CALL, ALL UPDATES PROVIDED. PER DR MEJIA D/C FLAGYL AND RESUME WITH MIKAEL GARCIA.
--- NOTE | 2019-03-05 11:25 | NUR ---
TEXTBOOK ASSOCIATE INFORMED THAT PATIENTS HEART RATE WAS IN JUNCTIONAL RHYTHM. PATIENT ASSESSED, LEADS REPLACED, PATIENT ALERT AND ORIENTED. NO SIGNS OF DISTRESS. WILL CONTINUE TO MONITOR, TERA CASIANO PAGED AT THIS TIME.
--- NOTE | 2019-03-05 11:43 | NUR ---
TERA CASIANO CALLED BACK AT THIS TIME, PATIENT CONVERTED BACK TO SR AT THIS TIME. UTILITY WORKER ROLLER SHOP MADE AWARE. NO FURTHER ORDERS AT THIS TIME. PER UTILITY WORKER ROLLER SHOP CONTINUE TO MONITOR, SHE WILL LET DR COURTNEY KNOW.
[2019-03-05 11:51] VITALS: BP 132/83
--- NOTE | 2019-03-05 13:57 | NUR ---
DR. COURTNEY AT BEDSIDE, ALL UPDATES GIVEN. PER DR. COURTNEY, WILL ORDER MORE POTASSIUM FOR PATIENT. DR. COURTNEY MADE AWARE OF JUNCTIONAL RHYTHM. WILL AWAIT FURTHER ORDERS.
--- NOTE | 2019-03-05 13:59 | NUR ---
DR. GONG AT BEDSIDE, ALL UPDATES GIVEN. NO FURTHER ORDERS AT THIS TIME.
[2019-03-05 15:26] VITALS: BP 129/60
--- NOTE | 2019-03-05 19:05 | NUR ---
RECEIEVED PT REPORT FROM VIDHYA BAUTISTA. QUESTIONS AND CONCERNS ADDRESSED.
[2019-03-05 19:20] VITALS: BP 121/70
--- NOTE | 2019-03-05 19:22 | NUR ---
RECEIEVED PATIENT LAYING IN BED, A&OX4, GCS OF 15. PT IS ON RA, SB TO ARCHITECT MARINE, PT DENIES CHEST PAIN. DIALYSIS ACCESS TO RIGHT UPPER CHEST CDI, R FEM CENTRAL LINE CDI. LEVOPHED INFUSING AT 2MCG/MIN AND TPN AT 100 ML/HR. PT HAS SCATTERED SCABS AND ECCHYMOSIS. ANURIC, CALL LIGHT WITHIN REACH. WILL MONITOR PT CLOSELY.
--- NOTE | 2019-03-05 21:30 | NUR ---
PT C/O N&V. MEDICATED ZOFRFAN 4MG IV ORDERED. WILL CONTINUE TO MONITOR.
--- NOTE | 2019-03-05 22:36 | NUR ---
LEVOPHED TITRATED TO 1 MCG/MIN FOR BP OF 115/62 MAP OF 83. WILL MONITOR CLOSELY.
--- NOTE | 2019-03-05 23:00 | NUR ---
LEVOPHED OFF AT THIS TIME, FOR BP OF 93/58 MAP OF 69. WILL MONITOR CLOSELY.
[2019-03-05 23:57] VITALS: BP 95/54
[2019-03-06] VITALS (8 sets, daily range): BP systolic 91–103; BP diastolic 46–57
--- NOTE | 2019-03-06 02:34 | NUR ---
RESUMED LEVOPHED @ 2MCG/MIN. BP: 72/40 (55). WILL CONTINUE TO MONITOR.
--- NOTE | 2019-03-06 04:11 | NUR ---
TITRATED LEVOPHED @1MCG/MIN. BP: 106/63. WILL CONTINUE TO MONITOR.
[2019-03-06 05:28] LABS: BASOPHIL % 0.2 % (0-2); PLATELET COUNT 215 x10^3mcL (130-400)
[2019-03-06 05:33] LABS: RED CELL DISTRIBUTION WIDTH 15.3 % (11.5-14.5)
[2019-03-06 05:52] LABS: CALCIUM 8.6 mg/dL (8.5-10.1); CARBON DIOXIDE 18.5 mmol/L (21-32); MAGNESIUM 2.9 mg/dL (1.8-2.4); PHOSPHOROUS 1.3 mg/dL (2.5-4.9); POTASSIUM SERUM 3.4 mmol/L (3.5-5.1)
[2019-03-06 05:54] LABS: CREATININE SERUM 8.4 mg/dL (0.7-1.3)
--- NOTE | 2019-03-06 07:15 | NUR ---
THE PATIENT IS SLEEPING BUT AROUSABLE EASILY WITH VERBAL STIMULI AND ORIENTED TO PERSON, PLACE AND TIME. PATIENT DENIES NAUSEA/VOMITING, PAIN OR SHORTNESS OF BREATH AT THIS TIME. RIGHT UPPER CHEST WITH PERMA CATH FOR HEMODIALYSIS. THE SITE WITH DRESSING INTACT. CVC AT RIGHT FEMORAL WITH DRESSING INTACT. TPN AT 100ML/HR. LEVOPHED IS AT 1MCG/MIN AT THIS TIME. TELE # 8 READS SINUS RHYTHMS WITH EPISODES OF SINUS BRADYCARDIA. CALL LIGHT WITHIN REACH. SIDE RAILS UP X3. BED IS AT LOWEST POSITION AND ALARM IS ON.
--- NOTE | 2019-03-06 07:32 | NUR ---
CARE ENDORSED TO DAY NURSE
--- NOTE | 2019-03-06 07:52 | NUR ---
NIBP 102/47 MAP 72, LEVO TITRATED TO 0.5 MCG/MIN. PRIMARY RN MADE AWARE.
--- NOTE | 2019-03-06 08:20 | NUR ---
NURSE PRACTITIONER ESA CAME TO SEE THE PATIENT AND AWARE OF THE PATIENT'S LAB RESULTS THIS MORNING.
--- NOTE | 2019-03-06 08:27 | NUR ---
HEMODIALYSIS NURSE RK CAME TO BEDSIDE FOR PATIENT'S HEMODIALYSIS PROCETURE.
--- NOTE | 2019-03-06 08:33 | NUR ---
BP 85/42 WITH MAP 61. RECHECKED BP 82/47 AND MAP 62; LEVOPHED IS TITRATED FROM 0.5MCG/MIN UP TO 2MCG/MIN.
--- NOTE | 2019-03-06 09:58 | NUR ---
DR. GONG IS AT BEDSIDE SEEING THE PATIENT.
--- NOTE | 2019-03-06 10:10 | NUR ---
UPDATE PROVIDED FROM VIDHYA JANSEN. PT HAD LOOSE BROWN STOOL. WILL CONTINUE TO MONITOR.
--- NOTE | 2019-03-06 10:25 | NUR ---
DR JOHNSON AT BEDSIDE, UPDATE PROVIDED. ORDERS GIVEN TO D/C THE LEVOPHED DRIP ONCE DIALYSIS IS COMPLETE. WILL CONTINUE TO MONITOR.
--- NOTE | 2019-03-06 11:12 | NUR ---
NOTIFIED TERA SEE THAT DR. JOHNSON SAW AND ASSESSED THE PT AND ORDERED TO D/C LEVOPHED DRIP AND CLEARED HIM TO TRANSFER TO [facility]. PER TERA SEE WE WILL MONITOR PT ONCE LEVOPHED IS STOPPED AND ASSESS FROM THERE.
--- NOTE | 2019-03-06 11:59 | NUR ---
CARE ENDORSED BACK TO VIDHYA JANSEN. UPDATE PROVIDED.
--- NOTE | 2019-03-06 12:05 | NUR ---
BP 102/55 AND MAP 71. LEVOPHED IS TITRATED FROM 2MCG/MIN DOWN TO 1MCG/MIN.
--- NOTE | 2019-03-06 12:29 | NUR ---
HEMODIALYSIS COMPLETED WITH NO OUTPUT REPORTED BY HEMODIALYSIS NURSE, RK.
--- NOTE | 2019-03-06 12:50 | NUR ---
BP 106/65 AND MAP 77; LEVOPHED IS TITRATED FROM 1MCG/MIN DOWN TO 0.5MCG/MIN.
--- NOTE | 2019-03-06 13:39 | NUR ---
THE PATIENT AGREED TO HAVE BS CHECKED AGAIN. BP 110/67 AND MAP 80. LEVOPHED TURNED OFF.
--- NOTE | 2019-03-06 14:25 | NUR ---
PHYSICAL THERAPIST IS AT BEDSIDE EVALUATING THE PATIENT.
--- NOTE | 2019-03-06 15:43 | NUR ---
INFORMED TERA SEE THAT LEVO WAS TURNED OFF AND NIBP IS HOLDING WITH CURRENT NIBP 106/53 MAP 72 ALSO INFORMED HER THAT THE PREVIOUS MAPS HAVE BEEN ABOVE 65. PER PACKAGING DESIGNER ESA OK TO TRANSFER PT TO TELE. PRIMARY RN MADE AWARE.
--- NOTE | 2019-03-06 17:17 | NUR ---
REPORT WAS GIVEN TO VIDHYA CANAS ON MST UNIT. CONCERNS ADDRESSED. PATIENT WILL BE TRANSFERRED TO ROOM 238B.
--- NOTE | 2019-03-06 18:05 | NUR ---
PATIENT TRANSFERRED TO ROOM 238B VIA WHEELCHAIR IN STABLE CONDITION AFTER PATIENT HAD DINNER. ALL BELONGINGS SENT TO THE ROOM WITH THE PATIENT. THE PATIENT LOWER BACK AND SACRAL AREA CHECKED WITH IRISH CRUZ ACEPTING THE PATIENT IN THE ROOM. THE AREA INTACT WITH NO REDNESS.
--- NOTE | 2019-03-06 18:40 | NUR ---
RECEIVED PT FROM ICU, PT RESTING IN BED, DENIES DISCOMFORT AT THIS TIME, AXOX4, VERBAL, [place] LEONE[place], APPROPRIATE CONVERSATION, NOT IN ACUTE RESP DISTRESS/SOB, PERRLA, NO DRAINAGE/REDNESS NOTED, DENIES LOZANO/N/V, DENIES CP/PRESSURE, REP EVEN AND NON-LABORED, LUNGS CLA, CHEST RISE SYMMETRICALLY, ABD FLAT AND NON-TENDER TO TOUCH, BS ACTIVE X4, PT HAD DINNER IN ICU, BS CHECKED, NOTED 92, NO INSULIN COVERAGE PER SLIDING SCALE VIA EMAR, ABLE TO MOVE ALL EXTREMITIES, AMBULATORY, CENTRAL LINE TO RIGHT FEMORAL CLEAN AND PATENT, PERMA CATH TO RIGHT CHEST DRESSING CLEAN AND NO S/S OF INFECTION, ANUREA, HD, T/TH/SAT, TPN RUNNING AT 100ML/HR, INFUSING WELL ON RIGHT FEMORAL, ALL NEEDS MET, CALL LIGHT IN REACH, BED AT LOW POSITION, RAILS X 2, WILL ENDORSE TO ONCOMING RN
--- NOTE | 2019-03-06 20:00 | NUR ---
PT A/A/O X4. DENIES DIZZINESS AND HEADACHE. BREATH SOUNDS CLEAR. BREATHING EVEN AND UNLABORED ON ROOM AIR. DENIES CHEST PAIN AND PRESSURE. BOWEL SOUNDS ACTIVE. NO C/O N/V AND ABD PAIN. C/O FREQUENT DIARRHEA. SCATTERED SCAB AND ECHYMOSIS NOTED ON BUE AND BLE. PERMA CATH NOTED ON THE RIGHT CHEST WITH DRESSING C/D/I. CENTRAL LINE NOTED ON THE RIGHT FEMORAL C/D/I INFUSING WITH TPN AT 100 ML/HR. MADE PT COMFORTABLE. PLACED CALL LIGHT WITH IN REACH. WILL CONTINUE TO MONITOR.
--- NOTE | 2019-03-06 21:34 | NUR ---
PT BP 91/46 MAP 61. GAVE PT SCHEDULED MIDODRINE PO. PT TOLERATED IT WELL. WILL CONTINUE TO MONITOR.
--- NOTE | 2019-03-07 00:01 | NUR ---
PT RESTING WITH EYES CLOSED. NO DISTRESS AND DISCOMFORT NOTED. BP 96/49 MAP 65. WILL CONTINUE TO MONITOR.
[2019-03-07 06:12] LABS: PLATELET COUNT 189 x10^3mcL (130-400)
--- NOTE | 2019-03-07 06:16 | NUR ---
PT QUIET AND RESTING. NO C/O ABD PAIN THUS FAR. PT STILL WITH DIARRHEA. CENTRAL LINE INTACT AND INFUSING ORDERED. MADE PT COFORTABLE. WILL ENDORSE TO THE AM NURSE ACCORDINGLY.
[2019-03-07 06:17] LABS: RED CELL DISTRIBUTION WIDTH 15.5 % (11.5-14.5)
[2019-03-07 06:24] VITALS: BP 99/61
[2019-03-07 06:32] LABS: CALCIUM 8.5 mg/dL (8.5-10.1); CARBON DIOXIDE 21.6 mmol/L (21-32); MAGNESIUM 1.9 mg/dL (1.8-2.4)
[2019-03-07 06:49] LABS: CREATININE SERUM 4.9 mg/dL (0.7-1.3)
--- NOTE | 2019-03-07 07:41 | NUR ---
RECEIVED PT IN NO ACUTE DISTRESS. SLEEPING BUT EASILY AROUSABLE. RESP EVEN AND UNLABORED ON RA. TPN INFUSING TO R FEMORAL LINE, NO REDNESS OR SWELLING NOTED. C/O CHRONIC DIARRHEA. R UPPER CHEST PERMACATH, DRESSING C/D/I. BED IN LOW POSITION, CALL LIGHT WITHIN REACH. WILL CONTINUE TO MONITOR.
[2019-03-07 08:03] VITALS: BP 86/45
[2019-03-07 08:16] LABS: BAND NEUTROPHIL 2 % (0-10); BASOPHIL 0 % (0-2); METAMYELOCTE 1 % (0-2); MONOCYTE 8 % (0-7); SEGMENTED NEUTROPHILS 67 % (37-75)
[2019-03-07 08:17] LABS: PLATELET MORPHOLOGY PLATELETS NORMAL; rbc morphology (normal/abnorm) NORMAL (NORMAL)
--- NOTE | 2019-03-07 12:22 | NUR ---
PT RESTING IN BED. NO ACUTE DISTRESS. SLEEPING ON AND OFF, EASILY AROUSABLE. FLAT AFFECT. RESP EVEN AND UNLABORED ON RA. TPN INFUSING TO R GROIN CENTRAL LINE, NO REDNESS OR SWELLING NOTED. HOB ELEVATED. CALL LIGHT WITHIN REACH. WILL CONTINUE TO MONITOR.
[2019-03-07 12:25] VITALS: BP 90/49
--- NOTE | 2019-03-07 13:28 | NUR ---
DR. GIBSON AWARE OF PHOS 0.6. NO NEW ORDERS AT THIS TIME. PT EATING LUNCH. NO ACUTE DISTRESS. WILL CONTINUE TO MONITOR.
--- NOTE | 2019-03-07 13:32 | NUR ---
Follow-up Nutrition Assessment: 238T/B ZEENAT GARCIA FU HR Dx: Abd pain and sepsis PMHx: HIV, ESRD on HD TTHSat, chronic hypotension Labs: (03/07) BG 125H, BUN 39H, CREAT 4.9H Meds: D50%, humulin, megace, Zofran, vancomycin, zosyn Diet: Regular + TPN D 25%, AA 5% @ 100 ml/hr PO Intake: (03/07) 80% breakfast, (03/06) dinner 40%, lunch 60%, breakfast 15%, (03/05) dinner 65%, lunch 80% Weights: (03/02) 49.8 kg, (03/03) 48.5 kg, (03/04) 50.3 kg, (03/05) 52.5 kg, (03/07) Bed scale not working Skin: scabs to BUE/BLE Simone: 16 I/Os: (03/06) 2427/1300 (1127) Edema: none GI: c/o chronic diarrhea Last BM: 03/06/19 RDN Visit (03/07): Patient was sleeping and TPN was running @ 100 cc/hr. Per RN, Pt has good PO. Spoke with Dr. Bagley and agreed with the recommendations. ONS Nepro will be added w/meals. Per progress note (03/06), Patient was scheduled to have HD on (03/06). Patient also continues on TPN 100cc/hr. Patient had colonoscopy with which indicated segmental inflammatory colitis with biopsy pending. Estimated Nutritional Needs based on ideal body weight 73 kg Energy: 6475-7415 kcal/d (25-30 kcal/kg for wt gain, ESRD on HD) Protein: 88-102 g/d (1.2-1.4 g/kg) - ESRD on HD Fluid: per MD as pt on HD Nutrition Diagnosis 1. Altered nutrition related lab values related to renal failure as evidenced by elevated BUN :39, Creat: 4.9. (ongoing) 2. Underweight related to HIV as evidenced by BMI: 16.4 kg/m2 and 69% of IBW. (Patient has gained 2.7 kg (~6#) in 3 days. Current BMI 17.1 kg/m2. (improving) Intervention 1. Discontinue TPN as patient has fair PO and diet to be supplemented with oral nutritional supplements. 2. Recommend Nepro with carbsteady TID w/meals. ONS will provide additional 1275 kcal and 57g protein. 3. Recommend Renal diet. Monitor/Evaluate Goal: TPN to meet at least 75% of estimated needs Monitor: TPN intake/tolerance, Labs, GI function F/U in 3-5 days as moderate risk 7/6-8
--- NOTE | 2019-03-07 14:27 | NUR ---
P.T. NOTES PATIENT REFUSED TO BE SEEN BY P.T. DUE TO NOT FEELING WELL AND TIRED, MADE RN AWARE.
--- NOTE | 2019-03-07 15:22 | NUR ---
PHYSICAL THERAPY DAILY NOTES CO-SIGN All documentation done by the Forklift Technician for 03/07/19 has been reviewed. I agree with the documentation. Reviewed/Co-Signed by: Lucia Ramírez PT Documentation Done by:GABRIELA JOE PTA
--- NOTE | 2019-03-07 16:50 | NUR ---
CALL PLACED TO [facility]K BULK RECEIVER TO CONFIRM PT'S SCHEDULE FOR HD TOMORROW 03/08/19 AT 1000.
[2019-03-07 17:10] VITALS: BP 104/58
--- NOTE | 2019-03-07 18:18 | NUR ---
PT RESTING IN BED. NO ACUTE DISTRESS. SLEEPING BUT EASILY AROUSABLE. BREATHING EVEN AND UNLABORED ON RA. R FEMORAL CENTRAL LINE WITH NO REDNESS OR SWELLING. R UPPER CHEST PERMACATH, DRESSING C/D/I. PT HAD 3 EPISODES OF DIARRHEA. BED IN LOW POSITION, CALL LIGHT WITHIN REACH. WILL ENDORSE TO INCOMING SHIFT.
--- NOTE | 2019-03-07 19:31 | NUR ---
RECEIVED PT FROM PREVIOUS SHIFT. DROWSY BUT AROUSABLE. AAO. ABLE TO MAKE NEEDS KNOWN. TELE #11 SHOWING NSR, HR 70. DENIES CP, NO PALPITATIONS. BREATHING E/U ON RA, NO SOB OBSERVED. DENIES PAIN. LAST BAG OF TPN INFUSING AT 100ML/HR. PT TOLERATING WELL. NO S/S ACUTE DISTRESS. R UPPER CHEST CATH NOTED, HD SCHEDULED FOR TOMORROW 03/08/19 AT 1000, PUBLIC SERVICES LIBRARIAN AWARE. R FEMORAL CENTRAL LINE NOTED, DRESSING CDI. CALL LIGHT WITHIN REACH. SAFETY MEASURES IN PLACE. WILL CONTINUE TO MONITOR.
[2019-03-07 20:41] VITALS: BP 101/52
--- NOTE | 2019-03-08 00:12 | NUR ---
PT RESTING IN BED. BREATHING E/U. NO SIGNS OF PAIN. NO S/S ACUTE DISTRESS. CALL LIGHT WITHIN REACH. SAFETY MEASURES IN PLACE. WILL CONTINUE TO MONITOR.
[2019-03-08 05:33] VITALS: BP 96/61
--- NOTE | 2019-03-08 05:37 | NUR ---
PT REFUSING SANDOSTATIN, PT AWARE OF TREATMENT PURPOSE AND BENEFIT, PT STILL REFUSES. TPN FINISHED INFUSING, PT HEP-LOCKED AT THIS TIME. NO C/O PAIN. PT BS AT 87, PROVIDED APPLE JUICE FOR PT. WILL CONTINUE TO MONITOR.
--- NOTE | 2019-03-08 06:27 | NUR ---
PT HAD RESTFUL NIGHT. NO ACUTE CHANGES OVERNIGHT. ALL NEEDS MET AND ATTENDED TO. RIGHT FEMORAL CENTRAL LINE CDI, PORTS PATENT. PT TO RECEIVE HD TODAY AT 1000, REQUESTING MIDODRINE BEFORE HD, WILL NOTIFY INCOMING RN. CALL LIGHT WITHIN REACH. SAFETY MEASURES IN PLACE. WILL ENDORSE CARE TO ONCOMING SHIFT.
[2019-03-08 06:32] LABS: PLATELET COUNT 222 x10^3mcL (130-400)
[2019-03-08 06:43] LABS: CALCIUM 7.9 mg/dL (8.5-10.1); CARBON DIOXIDE 17.7 mmol/L (21-32); PHOSPHOROUS 1.3 mg/dL (2.5-4.9); POTASSIUM SERUM 4.5 mmol/L (3.5-5.1)
[2019-03-08 06:44] LABS: ALBUMIN 1.6 g/dL (3.4-5.0); CREATININE SERUM 6.5 mg/dL (0.7-1.3)
--- NOTE | 2019-03-08 07:15 | NUR ---
RECEIVED PT FROM [facility] [employer], PT FOUND RESTING IN BED WITH BOTH EYES CLOSED. NSR ON TELE, HR 97. NO S/S OF ACUTE DISTRESS. NO S/S OF PAIN. NO SOB ON ROOM AIR. CENTRAL LINE TO RIGHT FEMORAL WNL. RECEIVING IV ANTIBIOTICS AT THIS TIME. BED IN LOW POSITION. CALL LIGHT WITHIN REACH. WILL CONTINUE TO MONITOR.
[2019-03-08 08:05] LABS: RED CELL DISTRIBUTION WIDTH 15.2 % (11.5-14.5)
[2019-03-08 08:12] VITALS: BP 91/48
[2019-03-08 12:28] LABS: BAND NEUTROPHIL 13 % (0-10); MONOCYTE 12 % (0-7); SEGMENTED NEUTROPHILS 51 % (37-75)
[2019-03-08 12:29] LABS: PLATELET MORPHOLOGY PLATELETS NORMAL; rbc morphology (normal/abnorm) ABNORMAL (NORMAL)
[2019-03-08 13:02] VITALS: BP 116/63
--- NOTE | 2019-03-08 14:02 | NUR ---
PT LAYING IN BED. AA/OX4. HR LOW, CHECKED AT BEDSIDE, 57. PT DENIES DIZZINESS, NO LOZANO. NO N/V. NO SOB ON ROOM AIR. NO S/S OF ACUTE DISTRESS. CALM/COOPERATIVE. NO CHEST PAIN. BED IN LOW POSITION. CALL LIGHT WITHIN REACH. WILL CONTINUE TO MONITOR.
[2019-03-08 17:02] VITALS: BP 110/63
--- NOTE | 2019-03-08 18:19 | NUR ---
PT LAYING IN BED. AA/OX4. NO S/S OF ACUTE DISTRESS. DENIES PAIN. NO SOB ON ROOM AIR. PT RECEIVED HEMODIALYSIS TODAY, OUTPUT 0. RIGHT UPPER CHEST PERMACATH IN TACT, SITE WNL. RIGHT FEMORAL CENTRAL LINE WNL, NO REDNESS, NO SWELLING, NO INFILTRATION. PATENT. IV FLUID FLOWING. NO COMPLAINT OF PAIN. MED-SURG. BED IN LOW POSITION. CALL LIGHT WITHIN REACH. WILL ENDORSE TO ONCOMING SHIFT.
[2019-03-08 19:36] VITALS: BP 104/55
--- NOTE | 2019-03-08 20:02 | NUR ---
TEMP 101F. COOLING MEASURES INITIATED
--- NOTE | 2019-03-08 21:30 | NUR ---
TEMP RECHECKED DOWN TO 100.6F. PAGED DR. MEJIAS
--- NOTE | 2019-03-08 21:32 | NUR ---
DR. MEJIAS CALLED BACK INFORMED TEMP 100.6F. PT HAS NO ANTIPYRETIC ORDERED. SHE STATED SHE WILL REVIEW PT'S CHART.
--- NOTE | 2019-03-08 21:56 | NUR ---
LATE ENTRY: 2000H - AWAKE AND ALERT, ORIENTED TO NAME, PLACE, TIME AND SITUATION. SPEECH CLEAR AND APPROPRIATE. BREATHING EVEN AND UNLABORED ON ROOM AIR. MG RIDER INFUSING AT THIS TIME AT 25ML/HR. DIALYSIS CATHETER NOTED TO RIGHT CHEST WALL. CENTRAL LINE TO RIGHT FEMORAL. DRESSING CDI.
--- NOTE | 2019-03-08 23:41 | NUR ---
TEMP 100.2F. CONTINUING COOLING MEASURES.
--- NOTE | 2019-03-09 00:50 | NUR ---
INFORMED DR. MEJIAS TEMP 100.2F 1 HOUR AFTER TYLENOL ADMINISTERED.
--- NOTE | 2019-03-09 02:51 | NUR ---
eyes closed, breathing even and unlabored on room air. call light within easy reach.
--- NOTE | 2019-03-09 03:49 | NUR ---
passed loose stool, hygiene needs attended to.
--- NOTE | 2019-03-09 03:50 | NUR ---
flushed all port of right femoral central line with ns. all ports flushed well, capped blue and brown ports with alcohol caps. sodium phosphate iv infusing well at 30ml/hr to white port. dressing cdi.
[2019-03-09 05:29] VITALS: BP 103/63
[2019-03-09 05:57] LABS: PLATELET COUNT 190 x10^3mcL (130-400)
--- NOTE | 2019-03-09 06:19 | NUR ---
EYES CLOSED, EASILY AWAKENED. BREATHING UNLABORED. IV NA PHOSPHATE INFUSING AT 30ML/HR. CALL LIGHT WITHIN EASY REACH.
[2019-03-09 06:40] LABS: CALCIUM 6.9 mg/dL (8.5-10.1); PHOSPHOROUS 4.9 mg/dL (2.5-4.9); POTASSIUM SERUM 3.8 mmol/L (3.5-5.1); RED CELL DISTRIBUTION WIDTH 15.6 % (11.5-14.5)
[2019-03-09 06:41] LABS: ALBUMIN 1.7 g/dL (3.4-5.0); CREATININE SERUM 4.9 mg/dL (0.7-1.3)
--- NOTE | 2019-03-09 07:14 | NUR ---
AWAKE AND ALERT, BREATHING EVEN AND UNLABORED. CALL LIGHT WITHIN EASY REACH. ENDORSED TO NURSE TYSON
--- NOTE | 2019-03-09 07:30 | NUR ---
RECEIVED PT IN BED, AXOX4, VERBAL, CITIZEN OF [place], CALM AND COPPERATIVE, PERRLA, NO REDNESS/DRAINAGE, DENIES PAIN/CP/PRESSURE/LOZANO/N/V AT THIS TIME, RESP EVEN AND NON-LABORED, CHEST RISE SYMMETRICALLY, ABD FLAT AND NON-TENDER TO TOUCH, BS ACTIVE X 4, DIARRHEA X 1 EPISODE, AMBULATORY, ANURIA, HD ON T//TUE, CENTRAL LINE TO RIGHT FEMORAL CLEAN, INTACT AND INFUSING WELL, PERMA CATH TO RIGHT CHEST DRESSIGN D/C/I, SKIN W/D/C, PALP PULSES, CAP REFILL < 2S, ALL NEEDS MET, CALL [facility] IN REACH, BED AT LOW POSITION, RAILS X 2, CONTINUE TO MONITOR
[2019-03-09 08:48] VITALS: BP 92/54
[2019-03-09] MEDS ORDERED: LEVAQUIN750 MG PO (09:30)
[2019-03-09] MEDS ORDERED: MIDODRINE HCL10 MG PO (09:30)
[2019-03-09] MEDS ORDERED: FLAGYL500 MG PO (09:30)
--- NOTE | 2019-03-09 09:30 | NUR ---
PT IN BED, IN NO ACUTE DISTRESS, AM MED GIVEN PER MD ORDER VIA EMAR, TAKEN WELL, NO ADVERSED SIDE EFFECT NOTED AT THIS TIME, ALL NEEDS MET, CONTINUE TO MONITOR
[2019-03-09 10:00] LABS: BAND NEUTROPHIL 1 % (0-10); BASOPHIL 0 % (0-2); MONOCYTE 10 % (0-7); PLATELET MORPHOLOGY PLATELETS DECREASED; SEGMENTED NEUTROPHILS 81 % (37-75); rbc morphology (normal/abnorm) ABNORMAL (NORMAL)
--- NOTE | 2019-03-09 10:15 | NUR ---
PT AMBULATORY ON THE HALLWAY WITH PT, IN NO ACUTE DISTRESS, CONTINUE TO MONITOR
[2019-03-09 11:28] VITALS: BP 92/54
--- NOTE | 2019-03-09 11:28 | NUR ---
I HAVE REVIEWED THE DATA COLLECTION BY VIDHYA OLMSTEAD (NAME):NICK CRUZ ENTERED ON (DATE/TIME):03/09/19 @ 1125 I CONCUR WITH THE DATA AND ANY EXCEPTIONS OR COMMENTS ARE LISTED BELOW:
--- NOTE | 2019-03-09 11:50 | NUR ---
PT RESTING IN BED, IN NO ACUTE DISTRESS, CENTRAL LINE REMOVED FROM RIGHT FEMORAL SITE, CATH TIP INTACT AND PATENT, PRESSURE APPLIED X 15 MINS, NO ACTIVE BLEEDING NOTED AT THIS TIME, DRESSING CLEAN AND INTACT, PT ADVICED TO STAY FLAT FOR AT LEAST 15 MINS, AWARE, CONTINUE TO MONITOR
--- NOTE | 2019-03-09 12:20 | NUR ---
PT IN BED, IN NO ACUTE DISTRESS, DRESSING TO RIGHT GROIN RECHECKED NOTED CLEAN AND INTACT, DIARRHEA X 1, ALL NEEDS MET, CONTINUE TO MONITOR
[2019-03-09 14:04] VITALS: BP 106/67
--- NOTE | 2019-03-09 14:47 | NUR ---
PT IN BED, IN NO ACUTE DISTRESS, VERBAL, CHADIAN, RESP EVEN AND NON-LABORED, DENIED PAIN/CP/PRESSURE, DENIES LOZANO/N/V/DIZZINESS, AMBULATORY, DC PAPER SIGNED AND PUT IN PT CHART, PT AWARE OF PRESCRIPTION AND F/U APPOINTMENT WITH PCP, DC EDUCATION DONE, VERBALLY UNDERSTANDING, PT DC TO HOME WITH HH AND PT, PT CALLED [facility] FOR TRANSPORTATION, ALL NEEDS MET, PT ASSISTED TO LOBBY VIA WC.
== END 2019-03-09 14:44 | disposition home health service (06) | DRG 890 ==
LOC: ED 05:56 → IC 08:49 → DU 03-06 18:19 → MU 03-08 16:48
PROVIDERS: Emergency Medicine; Internal Medicine; Internal Medicine Gastroenterology; Internal Medicine Nephrology; ADMIT Internal Medicine
PROC: 0DBL8ZX Excision of Transverse Colon, Via Natural or Artificial Opening Endoscopic, Diagnostic (ICD-10-PCS; 2019-03-05)
PROC: 0DBN8ZX Excision of Sigmoid Colon, Via Natural or Artificial Opening Endoscopic, Diagnostic (ICD-10-PCS; 2019-03-05)
PROC: 0DBF8ZX Excision of Right Large Intestine, Via Natural or Artificial Opening Endoscopic, Diagnostic (ICD-10-PCS; 2019-03-05)
PROC: 0DBB8ZX Excision of Ileum, Via Natural or Artificial Opening Endoscopic, Diagnostic (ICD-10-PCS; principal; 2019-03-05 08:00)
DX: A41.9 Sepsis, unspecified organism (principal); B20 Human immunodeficiency virus [HIV] disease; N18.6 End stage renal disease; R64 Cachexia; I95.89 Other hypotension; I12.0 Hypertensive chronic kidney disease with stage 5 chronic kidney disease or end stage renal disease; K51.20 Ulcerative (chronic) proctitis without complications; N20.0 Calculus of kidney; M62.50 Muscle wasting and atrophy, not elsewhere classified, unspecified site; K52.9 Noninfective gastroenteritis and colitis, unspecified; E86.0 Dehydration; Z99.2 Dependence on renal dialysis; Z68.1 Body mass index [BMI] 19.9 or less, adult; Z91.14 Patient's other noncompliance with medication regimen
CPT/HCPCS: 45378; 82962; 87046; 87046-59; 97116-GP; 97530-GP; G0378; J0171; J1200; J1610; J1644; J1815; J2250; J2270; J2310; J2354; J2405; J2543; J3010; J3370; J3475; J3480; J3490; J7030; J7042; J7050; J7131; Q0092

== ENCOUNTER 2019-03-10 21:10 | Inpatient (IN) | payer OTHER ==
[~2019-03-10] VITALS: Ht 175.3 cm; Wt 56.0 kg
[~2019-03-10 21:10] MED LIST changes: +CALCIUM ACETAT667 M3 PO; +FLAGYL500 MG PO; +LEVAQUIN750 MG PO; +MIDODRINE HCL10 MG PO; +POTASSIUM CHLO20 ME1 PO
[2019-03-10 21:24] VITALS: Ht 175.3 cm; Wt 56.0 kg
--- NOTE | 2019-03-10 21:35 | NUR ---
PT AMBULATED TO BED 7 WITH STEADY GAIT. PT AAOX4, NO S/S OF DISTRESS NOTED, RESPIRATIONS ARE EVEN AND UNLABORED. PT REPORTS BEING DISCHARGED YESTERDAY AFTER "BEING IN ICU THEN TELEMETRY FOR MANY MANY DAYS, THIS HAPPENS A LOT AFTER DIALYSIS BECAUSE OF MY DIARRHEA". PT REPORTS RECIEVING A PHONE CALL TODAY FROM A NURSE NAMED "ARPITA FROM TELE" AND BEING TOLD THAT A RESUTLS OF A RECENT COLONOSCOPY EXAM DETECTED A BACTERIAL INFECTION. PT STATED "SHE SAID I HAD TO COME TO THE ER TO BE ADMITTED FOR 10 DAYS OF IV ANTIBIOTICS". PT REPORTS CHRONIC DIARRHEA FOR MANY YEARS, AND IS CURRENTLY WEARING A DIAPER. PT DENIES ABD PAIN. PT LAYING IN BED TO POSITION OF COMFORT.
--- NOTE | 2019-03-10 22:21 | NUR ---
PT LAYING IN BED TO POSITION OF COMFORT NO S/S OF DISTRESS NOTED.
--- NOTE | 2019-03-10 22:35 | NUR ---
GAVE REPORT OF PT TO WISAM FROM [facility], OVER THE PHONE.
[2019-03-10 22:50] LABS: BASOPHIL % 0.2 % (0-2); PLATELET COUNT 226 x10^3mcL (130-400); RED CELL DISTRIBUTION WIDTH 15.6 % (11.5-14.5)
[2019-03-10 22:58] LABS: ALBUMIN 1.9 g/dL (3.4-5.0); BILIRUBIN TOTAL 0.19 mg/dL (0.20-1.00); CALCIUM 7.5 mg/dL (8.5-10.1); CARBON DIOXIDE 27.7 mmol/L (21-32); POTASSIUM SERUM 3.1 mmol/L (3.5-5.1); TOTAL PROTEIN, SERUM 8.2 g/dL (6.4-8.2)
[2019-03-10 23:00] LABS: CREATININE SERUM 4.1 mg/dL (0.7-1.3)
--- NOTE | 2019-03-10 23:22 | NUR ---
REPORT GIVEN TO TYESHA KEE TO ASSUME CARE OF PT.
--- NOTE | 2019-03-11 00:10 | NUR ---
RECEIVED PT FROM ER. PT ADMIT FOR COLITIS, PT IS A/O X4, VERBAL RESPONSIVE, ABLE TO TELL WHAT HE NEEDS. LUNG SOUND CLEAR BILATERAL, NO COUGH, NO SOB, PT IS ON TELE 9, NSR, DENY ANY CHEST PAIN OR DISCOMFORT, PERMACATH AT RIGHT UPPER CHEST. BOWEL SOUND PRESENT ALL 4 QUADRANTS, HYPERACTIVE, PT STILL C/O DIARRHEA AND MILD ABD PAIN AT THIS MOMENT, PEDAL PULSE PRESENT BOTH FEET, NO EDEMA, THERE ARE DISCOLORATION AND DRY SCABS AT BLE. PICTURE ARE TAKEN. IV AT LEFT AC, NOLEAKING, NO INFILTRATION. ALL ADLS ASSIST, ALL NEED MET, CALL LIGHT IN REACH, WILL CONTINUE TO MONITOR.
[2019-03-11 00:21] LABS: FREE T4 0.61 ng/dL (0.76-1.46)
[2019-03-11 00:30] VITALS: BP 101/63
[2019-03-11 00:33] LABS: FREE THYROXINE INDEX 1.3 ug/dL (1.4-4.5); T4(THYROXINE) 4.1 ug/dL (4.7-13.3)
--- NOTE | 2019-03-11 00:45 | NUR ---
RECEIVED PT FROM ER. PT ADMIT FOR COLITIS, PT IS A/O X4, VERBAL RESPONSIVE, ABLE TO TELL WHAT HE NEEDS. LUNG SOUND CLEAR BILATERAL, NO COUGH, NO SOB, PT IS ON TELE 9, NSR, DENY ANY CHEST PAIN OR DISCOMFORT, BOWEL SOUND PRESENT ALL 4 QUADRANTS, HYPERACTIVE, PT STILL C/O DIARRHEA AND MILD ABD PAIN AT THIS MOMENT, PEDAL PULSE PRESENT BOTH FEET, NO EDEMA, THERE ARE DISCOLORATION AND DRY SCABS AT BLE. PICTURE ARE TAKEN. IV AT LEFT AC, NOLEAKING, NO INFILTRATION. ALL ADLS ASSIST, ALL NEED MET, CALL LIGHT IN REACH, WILL CONTINUE TO MONITOR.
[2019-03-11 00:53] LABS: T3 TOTAL 0.76 ng/mL
--- NOTE | 2019-03-11 05:30 | NUR ---
PT. W/ EYES CLOSED, APPEARS TO BE SLEEPING AT THIS TIME. NO COMPLAINTS OF PAIN THUS FAR. CALL LIGHT REMAINS WITHIN REACH. WILL ENDORSE PT. CARE TO INCOMING NURSE.
[2019-03-11 06:06] VITALS: BP 101/63
--- NOTE | 2019-03-11 07:14 | NUR ---
RECEIVED PT FROM SHIFT NURSE ASLEEP BUT AROUSABLE. NO ACUTE DISTRESS NOTED. RESP EVEN AND UNLABORED ON RA. IV INTACT AND PATENT. BED IN LOW POSITION. CALL LIGHT WITHIN REACH. WILL CONTINUE TO MONITOR.
[2019-03-11 08:20] LABS: CALCIUM 7.6 mg/dL (8.5-10.1); CARBON DIOXIDE 23.4 mmol/L (21-32); POTASSIUM SERUM 3.3 mmol/L (3.5-5.1)
[2019-03-11 08:32] LABS: BASOPHIL % 0.5 % (0-2); PLATELET COUNT 237 x10^3mcL (130-400)
[2019-03-11 08:34] LABS: RED CELL DISTRIBUTION WIDTH 15.3 % (11.5-14.5)
[2019-03-11 08:43] LABS: CREATININE SERUM 4.9 mg/dL (0.7-1.3)
--- NOTE | 2019-03-11 09:32 | NUR ---
PT ASLEEP BUT AROUSABLE. NO ACUTE DISTRESS NOTED. CALL LIGHT WITHIN REACH. WILL CONTINUE TO MONITOR.
[2019-03-11 09:33] VITALS: BP 100/62
--- NOTE | 2019-03-11 11:00 | NUR ---
Spoke to pt due to nutrition consult and pt with low BMI. Recommended adding Nepro with CHO steady TID (provides an additional 1275kcal, 57g protein) to current renal diet. Pt requesting Banantrol due to loose stools. Pt previously received durig last hospital stay. Spoke to transmissions systems operator Cherie about adding Banantrol to diet and RN will inform doctor. Rec: Banatrol TID ( 1 packet contains 120mg K+) still within limit for renal diet. RD will continue to monitor.
--- NOTE | 2019-03-11 12:11 | NUR ---
PT REMAINS ASLEEP BUT AROUSABLE. CALL LIGHT WITHIN REACH. WILL CONTINUE TO MONITOR.
[2019-03-11 14:03] VITALS: BP 96/64
--- NOTE | 2019-03-11 14:38 | NUR ---
PT LYING IN BED WATCHING TV. NO ACUTE DISTRESS NOTED. CALL LIGHT WITHIN REACH. WILL CONTINUE TO MONITOR.
[2019-03-11 16:35] VITALS: BP 100/65
--- NOTE | 2019-03-11 18:25 | NUR ---
PT LYING IN BED TALKING WITH FREIND AT BEDSIDE. NO ACUTE DISTRESS NOTED. HEPLOCK PATENT. CALL LIGHT WITHIN REACH. WILL BE ENDORSED.
--- NOTE | 2019-03-11 19:41 | NUR ---
SHIFT REASSESSMENT DONE.PATIENT ALERT AND ORIENTED.BREATHING EASY.MILD GEN WEAKNESS.HEPLOCK LAC.TELE 9 SR WITH PVC.HD PATIENT.R UPPER CHEST PERMACATH.HD T TH AND SAT.VISITOR AT BEDSIDE.SUPPORTIVE OF CARE.HIV MED ORDRED,PHARMACY SAYS SOME MED TO START TONIGHT,OTHER TO BE ORDERED OUTSIDE,HEADS UP/IN CASE DR MEJIA ASKED.CALL LIGHT IN REACH.
[2019-03-11 20:15] VITALS: BP 109/70
--- NOTE | 2019-03-11 23:17 | NUR ---
ALL PM MEDS GIVEN WITH NO INCIDENT.QUIET ENVIRONMENT PROVIDED.CALL LIGHT IN REACH.
--- NOTE | 2019-03-12 05:40 | NUR ---
SLEEP WELL DURING THE NIGHT.NO INCIDENT,SAYS HE HAS BM JUST NOW.I AND O RE EDITED.HEPLOCK INTACT.WANTED DOOR SHOT.
[2019-03-12 06:05] VITALS: BP 93/67
[2019-03-12 07:27] LABS: IRON 76 ug/dL (65-170)
--- NOTE | 2019-03-12 07:29 | NUR ---
PT ENDORSE TO ME THIS MORNING, LAYING IN BED RESTING, AA/OX4 BREATHING EVEN AND UNLABORED ON RA, NO ACUTE RESP DISTRESS OR SOB NOTED. TELE 9 SR NOTED, HR 96 NOTED/ DENIES ANY CP OR PRESSURE. BOWEL SOUNDS ACTIVE IN ALL FOUR QUADS.LAST BM 03/12. HD PATIENT/ R CHEST PERMACATH FOR HD ON T-TH-SAT. LAST HD SAT. PT IS ANURIC. GEN WEAKNESS. BLE DISCOLORATION NOTED /DRY SCABS. LAC INTACT AND PATENT/ HEPLOCKED. CALL LIGHT IN REACH. BED IN LOW POSITION. WILL CONTINUE TO MONITOR.
[2019-03-12 07:36] LABS: TOTAL IRON BINDING CAPACITY 197 ug/dL (250-450)
[2019-03-12 08:10] VITALS: BP 88/64
[2019-03-12 08:20] LABS: AMYLASE 956 U/L (25-115); LIPASE 5717 IU/L (73-393)
--- NOTE | 2019-03-12 08:30 | NUR ---
DR. WADDELL AWARE OF LOW BP. PT DENIES ANY DIZZINESS OR DISCOMFORT AT THIS TIME. WILL CONTINUE TO ИВАН.
--- NOTE | 2019-03-12 09:30 | NUR ---
TELE CALLED HR RANGING 120/130'S WHEN PT IS UP AMB TO BATHROOM AND BACK, DR WADDELL AND MEDICAL TEAM AWARE. PT FRANCISCO ANY CP OR PRSSURE. WILL CONTINUE TO MONITOR.
[2019-03-12 09:35] LABS: BASOPHIL % 0.6 % (0-2); CALCIUM 8.6 mg/dL (8.5-10.1); CARBON DIOXIDE 14.5 mmol/L (21-32); CREATININE SERUM 7.6 mg/dL (0.7-1.3); MAGNESIUM 2.1 mg/dL (1.8-2.4); PHOSPHOROUS 6.8 mg/dL (2.5-4.9); PLATELET COUNT 333 x10^3mcL (130-400); POTASSIUM SERUM 3.9 mmol/L (3.5-5.1)
[2019-03-12 09:42] LABS: RED CELL DISTRIBUTION WIDTH 15.3 % (11.5-14.5)
[2019-03-12 13:26] VITALS: BP 93/65
--- NOTE | 2019-03-12 13:38 | NUR ---
Recommendations: 1. Continue current diet order and ONS: Renal diet w/ Nepro with Carbsteady TID & Banatrol Plus TID.
--- NOTE | 2019-03-12 13:38 | NUR ---
Initial Nutrition Assessment: (232-B) ZEENAT GARCIA 39M Dx:Colitis PMHx: HIV/AIDS, ESRD on HD TthSat, Chronic hypotension, Cachexia PSHx: Permacath Labs: BUN 37 H, Cr 7.6 H, Alb 1.9 L, Phos 6.8 H, AST 48 H, HDL 26 L, Amylase 956 H, Lipase 5717 H, T3 32 L, T4 4.1 L Meds: [place]ent[place], Zofran Diet: Renal PO intake since admission: 75-100% Ht: 69in Wt: 123# BMI: 18.2 Bed scale: 113.1# IBW: 160# %IBW: 77% UBW: 120# Age: 39 Food Allergies: NKFA Skin: BLE discoloration noted/dry scabs Simone: 19 Edema: None noted GI: Passing gas, per pt Last BM: 03/12 RD Note (03/12): Nursing trigger received for appears underweight/malnourished. Pt noted discharged 03/09, recommended readmit 03/11 r/t diarrhea, CMV biopsy confirmed, colitis. Visited pt bedside, pt seems irritated and, c/o diarrhea and some nausea. Pt seems upset that Banatrol was not on his tray this morning. Discussed w/ diet renate and foodservice director regarding Banatrol, concluded to continue Banatrol TID. Pt states tolerating diet and Nepro. Noted pt wt gain since last admission, but pt reports continued wt loss. Problem with: N/V/D/C: some nausea and diarrhea Problems with: Chewing: No Swallowing: No Current appetite: fair Recent wt change: Yes, cannot recall how much %wt change: Yes, cannot recall how much Vitamin/Supplement use: No Special diet at home: Regular Physical activity: N/A Nutrition education given (specify specific nutrition education and handout given): None given at this time. Food-drug interactions? Education given? None given at this time. Estimated Nutritional Needs Based on ideal body weight (73 kg) Energy: 9564-6855 kcal/day (25-30 kcal/kg for wt gain, ESRD on HD) Protein: 88-102 g/day (1.2-1.4 g/kg for ESRD on HD) Fluid: Per MD (ESRD on HD) Nutrition Diagnosis: 03/07: Altered nutrtion related lab values related to renal failure as evidenced by elevated BUN: 39 Creat: 4.9. (ongoing) 03/07: Underweight related to HIV as evidenced by BMI: 16.4 kg/m2 and 69% of IBW. (Patient has gained 2.7 kg (~6#) in 3 days. Current BMI 17.1 kg/m2. (improving). 03/12: Underweight r/t HIV/AIDS, medical condition, diarrhea AEB 77% IBW, BMI 18.2. Intervention 1. Continue current diet order and ONS: Renal diet w/ Nepro with Carbsteady TID & Banatrol Plus TID. Monitor/Evaluate Goal: PO intake at least 75% of estimated needs Monitor: PO intake, Labs, GI function F/U in 3-5 days as moderate risk 03/15-03/17
--- NOTE | 2019-03-12 13:45 | NUR ---
PT C/O OF [place]ANVING LOOSE STOOLS, DR. WADDELL MADE AWARE. WILL CONTINUE TO MONITOR.
[2019-03-12 16:36] VITALS: BP 94/65
--- NOTE | 2019-03-12 16:55 | NUR ---
PT TAKED TO RAD FOR CT WITH OUT CONTRAST IN WHEEL CHAIR. PT HEPLOCKED. BREATHING EVEN AND UNLABORED ON RA, NO ACUTE RESP DISTRESS OR SOB NOTED. WILL CONTINUE TO MONITOR WHEN PT RETURNS BACK TO FLOOR.
--- NOTE | 2019-03-12 17:30 | NUR ---
PT BACK FROM CT. RECONNECTED PT BACK TO IV FLUIDS. DENIES ANY ABD DISCOMFORT AT THIS TIME. IS SITTING UP IN BED HAVING HIS DINNER. CALLL LGIHT IN REACH. BED IN LOW POSITION. WILL CONTINUE TO MONITOR.
--- NOTE | 2019-03-12 18:39 | NUR ---
NO ACUTE CHANGES AT THIS TIME. NO ACUTE RESP DISTRESS OR SOB NOTED. REMAINS ON TELE 9 SR AT THIS TIME, HR 91 DENIES ANY CP OR PRESSURE AT THIS TIME. DENIES ANY ABD PAIN OR DISCOMFORT AT THIS TIME. CALL LIGHT IN REACH, BED IN LOW POSITION, WILL ENDORSE TO INCOMING RN.
--- NOTE | 2019-03-12 19:22 | NUR ---
PT C/O N/V, MEDICATED PER EMAR. NIGHT RN AWARE.
--- NOTE | 2019-03-12 19:57 | NUR ---
PT IS AWAKE AND ORIENTED X4. PT DENIES LOZANO OR DIZZINESS. PT FOLLOWS COMMANDS. PT IS CALM AND COOPERATIVE WITH NURSING CARE. PT DENIES CP OR PRESSURE AT THIS TIME. PT ON TELE# 9 SHOWING NSR ON THE MONITOR. PT HAS PALPABLE PULSES BILAT ALL EXTREMITIES. SCDS IN PLACE. NO SIGNS OF EDEMA. PT HAS CLEAR LUNG SOUNDS. RESPIRATIONS EVEN AND UNLABORED ON ROOM AIR. PT DENIES SOB. PT HAS ACTIVE BOWEL SOUNDS. PT REPORTS LOOSE STOOLS. PT REPORTS ABD PAIN AND N/V AT TIMES. PRN ZOFRAN GIVEN ORDERED AND TOLERATED WELL. PT HD PT. PT IS ANURIC. PT HAS GEN WEAKNESS. PT HAS BLE DISCOLORATION WITH DRY SCABS. IV FLUIDS D5 WITH NaBICARB TO LAC RUNNING AT 75 ML/HR. PT DENIES PAIN OR DISCOMFORT. NO SIGNS OF DISTRESS. WILL CONTINUE TO MONITOR.
[2019-03-12 20:39] VITALS: BP 104/79
[2019-03-12 20:45] VITALS: BP 95/72
--- NOTE | 2019-03-12 22:23 | NUR ---
PT HR REACHED THE 140'S. PT STATED HE WAS UP AND BRUSHING HIS TEETH. PT DENIES CP OR PRESSURE. PT REMAINS LYING IN BED AT THIS TIME. HR DECREASING AND CURRENTLY 96. WILL CONTINUE TO MONITOR.
--- NOTE | 2019-03-13 02:01 | NUR ---
PT REMAINS IN BED AT THISTIME RESTING IN BED WITH EYES CLOSED. NO SIGNS OF DISTRESS. WILL CONTINUE TO MONITOR.
--- NOTE | 2019-03-13 03:56 | NUR ---
PT SHOWED JUNCTIONAL RHYTHM, PT DENIES ANY CP OR PRESSURE. PT REMAINS ASYMPTOMATIC. NO SIGNS OF DISTRESS. WILL CONITNUE TO MONITOR.
--- NOTE | 2019-03-13 04:00 | NUR ---
PT REMAINS IN BED AT THIS TIME RESTING WITH EYES CLOSED. NO SIGNS OF DISTRESS. WILL CONTINUE TO MONITOR.
[2019-03-13 05:23] VITALS: BP 97/68
--- NOTE | 2019-03-13 06:32 | NUR ---
PT IS CALM AND COOPERATIVE WITH NURSING CARE. PT DENIES PAIN OR DISCOMFORT. PT DENIES N/V AND ABD PAIN AFTER INITIAL COMPLAINT OF NAUSEA AT BEGINNING OF THE SHIFT. PT ABLE TO REPOSITION SELF IN BED. PT DENIES CP OR PRESSURE. NO SIGNS OF DISTRESS. WILL ENDROSE TO DAY NURSE.
--- NOTE | 2019-03-13 07:15 | NUR ---
PT ENDORSE TO ME THIS MORNING. LAYING IN BED RESTING. AA/O X4. BREATHING EVEN AND UNLABORED ON RA/ NO ACUTE RESP DISTRESS OR SOB NOTED. TELE 9 SR, HR 99/ DENIES ANY CP OR PRESSURE. SCHD FOR HD TODAY RIGHT UPPER CHEST CATH INPLACE. GEN WEAKNESS/ AMB, ANURIC. IV TO THE LAC INTACT AND PATENT/ INFUSING AT 75ML/HR, NO REDNESS OR SWELLING NOTED. WILL CONTINUE TO MONITOR.
[2019-03-13 07:20] LABS: PLATELET COUNT 393 x10^3mcL (130-400)
[2019-03-13 07:33] LABS: CALCIUM 8.1 mg/dL (8.5-10.1); CARBON DIOXIDE 12.4 mmol/L (21-32); RED CELL DISTRIBUTION WIDTH 14.9 % (11.5-14.5)
[2019-03-13 07:38] LABS: CREATININE SERUM 9.7 mg/dL (0.7-1.3)
[2019-03-13 07:48] LABS: PHOSPHOROUS 9.5 mg/dL (2.5-4.9)
[2019-03-13 08:49] VITALS: BP 98/62
--- NOTE | 2019-03-13 08:52 | NUR ---
LAB CALLED WITH PHOSPHORUS 9.5 HORSE TRADER MUTUC AWARE
[2019-03-13 13:21] VITALS: BP 116/68
[2019-03-13 14:03] LABS: BAND NEUTROPHIL 1 % (0-10); BASOPHIL 0 % (0-2); MONOCYTE 11 % (0-7); SEGMENTED NEUTROPHILS 82 % (37-75)
[2019-03-13 14:04] LABS: PLATELET MORPHOLOGY PLATELETS INCREASED; rbc morphology (normal/abnorm) ABNORMAL (NORMAL)
[2019-03-13 16:18] VITALS: BP 105/75
--- NOTE | 2019-03-13 17:11 | NUR ---
HD NURSE AT BEDSIDE.
--- NOTE | 2019-03-13 18:00 | NUR ---
CONTACTED PICC LINE VIDHYA GRADY STATED WE NEED CLEARANCE FROM NEPHRO TO IN-SERT PICC, DR. WADDELL MADE AWARE.
--- NOTE | 2019-03-13 18:39 | NUR ---
NO ACUTE CHANGES AT THIS TIME, PT IS CURRENTLY REC HD AT BEDSIDE. BREATHING EVEN AND UNLABORED ON RA, NO ACUTE RESP DISTRESS OR SOB NOTED. IV TO THE LAC INTACT AND PATENT. WILL ENDORSE TO INCOMING RN.
--- NOTE | 2019-03-13 19:15 | NUR ---
RECEIVED PT FROM PREVIOUS SHIFT. CURRENTLY RECEIVING HD, DIALYSIS NURSE AT BEDSIDE. AAO. ABLE TO MAKE NEEDS KNOWN. TELE #23 SHOWING SINUS TACHYCARDIA. DENIES CP, DENIES PALPITATIONS. BREATHING E/U ON RA, NO SOB. NO S/S ACUTE DISTRESS. IV SITE CDI, NO ERYTHEMA OR EDEMA. CALL LIGHT WITHIN REACH. WILL CONTINUE TO MONITOR.
--- NOTE | 2019-03-13 20:45 | NUR ---
HD COMPLETED, 0L TAKEN OUT. BP: 95/72. HR 118. PT TOLERATED PROCEDURE WELL.
[2019-03-13 21:41] VITALS: BP 95/72
--- NOTE | 2019-03-13 21:43 | NUR ---
PT C/O 03/14 ACHING CONSTANT BACK PAIN, MEDICATED PER EMAR.
--- NOTE | 2019-03-13 22:03 | NUR ---
EDGER MACHINE OPERATOR CALLED, PT HR IN 140S-150S. WENT TO CHECK IN ON PT. PT STATES HE JUST RETURNED FROM BATHROOM AND "WAS REARRANGING MY ROOM". PT DENIES PAIN. NO S/S ACUTE DISTRESS. WILL CONTINUE TO MONITOR.
--- NOTE | 2019-03-13 23:37 | NUR ---
PT RESTING IN BED WITH EYES CLOSED. BREATHING E/U. NO S/S ACUTE DISTRESS. CALL LIGHT WITHIN REACH. SAFETY MEASURES IN PLACE.
--- NOTE | 2019-03-14 02:11 | NUR ---
PT HR IN 150S, WENT TO ASSESS PT, PT AMBULATING BACK FROM BATHROOM. REPORTS 7/10 ACHING BACK PAIN, MEDICATED PER EMAR. WILL CONTINUE TO MONITOR.
[2019-03-14 05:57] VITALS: BP 91/60
[2019-03-14 06:39] LABS: MAGNESIUM 1.7 mg/dL (1.8-2.4); PHOSPHOROUS 6.7 mg/dL (2.5-4.9)
[2019-03-14 06:44] LABS: CALCIUM 7.9 mg/dL (8.5-10.1); CARBON DIOXIDE 25.3 mmol/L (21-32); POTASSIUM SERUM 3.3 mmol/L (3.5-5.1)
--- NOTE | 2019-03-14 06:49 | NUR ---
PT HAD RESTFUL NIGHT. NO CHANGES OVERNIGHT. ALL NEEDS MET AND ATTENDED TO. PT STILL WAITING FOR POSSIBLE PICC LINE PLACEMENT, HOWEVER NEEDS CLEARANCE FROM NEPHRO. NO S/S ACUTE DISTRESS. ALL NEEDS MET AND ATTENDED TO. CALL LIGHT WITHIN REACH. SAFETY MEASURES IN PLACE. WILL ENDORSE CARE TO ONCOMING SHIFT.
[2019-03-14 06:54] LABS: PLATELET COUNT 354 x10^3mcL (130-400)
--- NOTE | 2019-03-14 07:19 | NUR ---
BEDSIDE REPORT GIVEN TO TYSON RN. ALL QUESTIONS AND CONCERNS ADDRESSED.
[2019-03-14 08:43] VITALS: BP 88/60
--- NOTE | 2019-03-14 08:45 | NUR ---
PT IN BED, DENIES PAIN AND DISCOMFORT, PAIN REASSESSMENT DONE, 0/10, AM MED GIVEN PER MD ORDER VIA EMAR, TAKEN WELL, NO ASE NOTED AT THIS TIME, ALL NEEDS MET, CONTINUE TO MONITOR
--- NOTE | 2019-03-14 09:06 | NUR ---
RECEIVED PT IN BED, AXOX4, AMBULATORY, VERBAL, THAI, CALM AND COOPERATIVE WITH POC, REPORT BACK PAIN 03/14, PAIN MED GIVEN PER MD ORDER VIA EMAR, TAKEN WELL, REPORTED NO N/V/LOZANO/CP/PRESSURE AT THIS TIME, PERRLA, NO REDNESS/DRAINAGE, LUNGS CTA, AT RA, PALP PULSE, NO EDEMA, CHEST RISE SYMMETRICALY, PERMA CATH ON (R) CHEST DRESSING C/D/I, TELE # 9, TACHYCARDIA, [id number] AT THIS TIME, ABD FLAT AND NON-TENDER TO TOUCH, BS ACTIVE X 4, IV TO (L) AC PATENT AND INFUSIGN WELL, ABLE TO MOVE ALL EXTREMITIES WITH NO DIFFICULTY, SKIN D/C/I, ALL NEEDS MET, CALL LIGHT IN REACH, BED AT LOW POSITION, RAILS X 2, CONTINUE TO MONITOR AND F/U
--- NOTE | 2019-03-14 11:47 | NUR ---
RECEIVED ORDER TO STRANSFER TO [facility]. PT AWARE, TELE MONITOR REMOVED AND GIVEN BACK TO TECH MONITOR MARYJO. ALL NEEDS MET AT THIS TIME. QUESTION ASKED AND ANSWERED R/T PICC LINE INSERTTION, NO FURTHER CONCERNS NEEDED WHEN ASKED, VERBALLY UNDERSTANDING, PT RESTING IN BED, IN NO ACUTE DISTRESS. CONTINUE TO MONITOR
[2019-03-14 12:07] LABS: BAND NEUTROPHIL 2 % (0-10); BASOPHIL 0 % (0-2); MONOCYTE 6 % (0-7); SEGMENTED NEUTROPHILS 76 % (37-75)
[2019-03-14 12:08] LABS: PLATELET MORPHOLOGY PLATELETS NORMAL; rbc morphology (normal/abnorm) ABNORMAL (NORMAL)
[2019-03-14 12:14] VITALS: BP 96/62
--- NOTE | 2019-03-14 13:20 | NUR ---
I HAVE REVIEWED THE DATA COLLECTION BY VIDHYA OLMSTEAD (NAME):NICK CRUZ ENTERED ON (DATE/TIME):03/14/19 @2274 I CONCUR WITH THE DATA AND ANY EXCEPTIONS OR COMMENTS ARE LISTED BELOW:
--- NOTE | 2019-03-14 14:27 | NUR ---
PT IN BED, IN NO ACURE DISTRESS, ASSISTED TO BATHROOM, VOID X1, DIARRHEA X1, ASSISTED BACK TO BED, SAFETY PROTOCOL FOLLOWED, CONTINUE TO MONITOR
--- NOTE | 2019-03-14 15:08 | NUR ---
TALKED TO PICC LINE NURSE ON PHONE, AWARE OF ORDER, WILL BE HERE FOR SERVICE IN AN HOUR AND A HALF, PT AWARE, CONTINUE TO MONITOR
--- NOTE | 2019-03-14 15:22 | NUR ---
PT AWARE OF MARKETING CLERK ORDER CLEAR FOR MID LINE INSERTION, VERBALLY AGREED, NO FURTHER CONCERNS NEEDED WHEN ASKED, CONTINUE TO MONITOR
--- NOTE | 2019-03-14 15:52 | NUR ---
PT IN BED, YANELY BATH GIVEN FOR MID-LINE INSERTION PREP, TAKEN WELL, PT AWARE, ALL NEEDS MET, ASSISTED TO BATHROOM, BACK TO BED, SAFETY PROTOCOL FOLLOWED, CONTINUE TO MONITOR
[2019-03-14 16:56] VITALS: BP 99/65
--- NOTE | 2019-03-14 17:05 | NUR ---
PT SEEN BY PICC LINE NURSE, US CHERRI NAIK AT BEDSIDE, INFORMED CONSENT SIGNED, TIME-OUT FORM CHECKED AND SIGNED, KEPT IN CHART, PT VERBALLIZED UNDERSTANDING PROCEDURE, RISK AND BENEFIT, CONTINUE TO MONITOR
--- NOTE | 2019-03-14 17:25 | NUR ---
PT IN BED, MIDLINE INSERTION TO (R) AC, TAKEN WELL, DENIED PAIN/DISCOMFORT, DERSSING C/D/I, NO ACTIVE BLEEDING NOTED, CONTINUE TO MONITOR
--- NOTE | 2019-03-14 17:30 | NUR ---
PT AWARE THAT WILL BE D/C HOME TONIGHT AFTER NIGHTSHIFT MD CLARIFY ORDER AND HH CARE. DIALYSIS DONE TOMORROW AT OUT PATIENT SERVICE AT 10AM AND HH NURSE WILL COME TO PT HOUSE FOR IV ANTIBIOTIC AT 3PM. FLORESITA KEE AND CHARGE NURSE SHANNON MORALEZ. PT REPORTED WILL CALL SISTER FOR TRANSPORTATION. WILL CONTINUE TO MONITOR AND ENDORSE
--- NOTE | 2019-03-14 17:48 | NUR ---
LINDY CASIANO NP ABOUT DISCHARGE ORDER TO PT.DID NOT GET A CALL BACK. CALLED HER 4X.BUT NO ANSWER.INFORMED CHARGE NURSE.CALLED THE 2ND YEAR CONTROL OFFICER MANAGER.CANT ORDER DISCHARGE ON THE PHONE.WILL HAVE DISCHARGE DONE AT 8-9 PM PER .
--- NOTE | 2019-03-14 17:52 | NUR ---
PT RESTING IN BED, DENIED PAIN/DISCOMFORT, DENIED LOZANO/PRESSURE/N/V, VERBAL, CALM AND COPPERATIVE WITH POC AT THIS TIME, RESP EVEN AND NON-LABORED, IN NO ACUTE RESP DISTRESS, NO FACIAL DROOP/SLURRED SPEECH NOTED, CHEST RISE SYMMETRICALLY, MEDSURG, AMBULATORY, ASSISTED TO BATHROOM, DIARRHEA X 1, BACK TO BED, MIDLINE PATENT AND NO ACTIVE BLEEDING NOTD AT THIS TIME, DRESSING C/D/I, SAFETY PROTOCOL FOLLOWED, ALL NEEDS MET, AT THIS TIME, WILL ENDORSE TO ONCOMING RN
--- NOTE | 2019-03-14 19:35 | NUR ---
AWAKE AND VERBALLY RESPONSIVE. ABLE TO MAKE NEEDS KNOWN. SKIN WARM AND DRY TO TOUCH WITH PORTACATH ON THE RIGHT CHEST FOR HD ACCESS. MIDLINE RANJITH INTACT FOR ATB IVPB THRU HOME HEALTH NURSE, AWAITING FOR DISCHARGE ORDER BY NOC RESIDENT. C/O CONSTANT BACK PAIN RELEIVED BY DAWN, PAIN LEVEL AT THIS TIME 10/15. WILL [id number] TO MONITOR.
[2019-03-14 20:34] VITALS: BP 108/64
[2019-03-14] MEDS ORDERED: ZITL PO (21:20)
[2019-03-14] MEDS ORDERED: ISENTRESS400 MG PO (21:21)
[2019-03-14] MEDS ORDERED: BACDS PO (21:21)
[2019-03-14] MEDS ORDERED: GANCICLOVIR IV (21:27)
[2019-03-14] MEDS ORDERED: NON-FORMULARY DRUG PO ×2 (21:28)
--- NOTE | 2019-03-14 21:30 | NUR ---
DUE MEDICACTIONS GIVEN AND WELL TOLERATED. DENIES ANY PAIN/DISCOMFORT.
[2019-03-14 21:38] VITALS: BP 108/64
--- NOTE | 2019-03-14 22:32 | NUR ---
WITH DISCHARGE OORDER TO DISCHARGE HME WITH HOME HEALTH. IV ACCESS AT THE LEFT HAND REMOVED AND APPLIED PRESSURE DRESSING . NO ACTIVE BLEEDING NOTED. DISCHARGE INSTURCTIONS GIVEN, PT VERBALIZED UNDERSTANDING. DISCAHRGED VIA PRIVATE CAR IN STALE CONDITION.
== END 2019-03-14 22:25 | disposition home health service (06) | DRG 890 ==
LOC: ED 21:10 → MU 22:50 → DU 03-12 12:45 → MU 03-14 11:47
PROVIDERS: Emergency Medicine; Internal Medicine; Internal Medicine Nephrology; ADMIT Internal Medicine
DX: B20 Human immunodeficiency virus [HIV] disease (principal); B25.8 Other cytomegaloviral diseases; N18.6 End stage renal disease; E43 Unspecified severe protein-calorie malnutrition; K85.90 Acute pancreatitis without necrosis or infection, unspecified; I95.89 Other hypotension; R64 Cachexia; A08.39 Other viral enteritis; E83.39 Other disorders of phosphorus metabolism; E87.2 Acidosis; E83.51 Hypocalcemia; E87.6 Hypokalemia; D64.9 Anemia, unspecified; Z99.2 Dependence on renal dialysis; Z68.1 Body mass index [BMI] 19.9 or less, adult
CPT/HCPCS: 82652; 84439; C1751; G0378; J1644; J2405; J3475; J3490; J7030; Q0092

== ENCOUNTER 2019-04-17 06:46 | Inpatient (IN) | payer OTHER ==
[~2019-04-17] VITALS: Ht 175.3 cm; Wt 49.2 kg
[~2019-04-17 06:46] MED LIST changes: +BACDS PO; +GANCICLOVIR IV; +ISENTRESS400 MG PO; +NON-FORMULARY DRUG PO; +ZITL PO
--- NOTE | 2019-04-17 07:12 | NUR ---
PATIENT AAOX4 BIB [facility] WITH C/O ABD PAIN, N/V X 2 DAYS. PT IS HEP + , HIV + AND CURRENTLY GOES TO DIALYSIS TUESDAYS, TUESDAY AND SATURDAYS. PT WAS TOO SICK TO GO TODAY. PT STS HE HAS CHRONIC DIARRHEA X 1 YEAR AND WEARS NOW WEARS BRIEFS. PT UNABLE TO RECALL ALL MEDICATIONS HE IS ON, MOST MEDICINES HE TAKES ARE ANTIVIRAL MEDS FOR HIS HIV DIAGNOSES. PT BREATHING E/U, SKIN WARM, DRY INTACT. ABD SOFT, NON DISTENDED, NON TENDER ON PALPATION. BS X 4 HEARD IN ALL QUADRANTS PT PLACED ON ALL MONITORS FOR FURTHER OBSERVATION. WILL CONTINUE TO MONITOR.
--- NOTE | 2019-04-17 07:15 | NUR ---
PATIENT HAVING MULTIPLE EPISODES OF VOMITING WITH DARK COLORED EMESIS.
--- NOTE | 2019-04-17 07:24 | NUR ---
REPORT PROVIDED TO VIDHYA MACDONALD FOR CONTINUED CARE OF PATIENT.
--- NOTE | 2019-04-17 07:37 | NUR ---
REPORT GIVEN TO PHUC RN FROM BRIANNA KEE TO ASSUME CARE OF PT. PT PLACED IN B05 FOR LOW BP.
--- NOTE | 2019-04-17 07:38 | NUR ---
REPORT RECEIVED FROM BLANCHE SKINNER RN I WILL BE RESUMING CARE OF PT AT THIS TIME
--- NOTE | 2019-04-17 08:00 | NUR ---
TISHA CATH DOUBLE LUMEN NOTED TO RIGHT UPPER CHEST
--- NOTE | 2019-04-17 08:02 | NUR ---
LAB AT BEDSIDE
--- NOTE | 2019-04-17 08:22 | NUR ---
PT TAKEN TO CT VIA [facility]
[2019-04-17 08:35] LABS: PLATELET COUNT 215 x10^3mcL (130-400)
[2019-04-17 08:36] LABS: RED CELL DISTRIBUTION WIDTH 16.6 % (11.5-14.5)
[2019-04-17 08:51] LABS: FREE T4 1.24 ng/dL (0.76-1.46); FREE THYROXINE INDEX 3.1 ug/dL (1.4-4.5); T3 TOTAL 1.02 ng/mL; T4(THYROXINE) 10.1 ug/dL (4.7-13.3)
[2019-04-17 08:59] LABS: CK-MB 0.9 ng/mL (0-3.6)
[2019-04-17 09:00] LABS: ALKALINE PHOSPHATASE 99 U/L (46-116); ALT/SGPT 92 U/L (16-63); AST/SGOT 66 U/L (15-37); BILIRUBIN TOTAL 0.7 mg/dL (0.20-1.00); C REACTIVE PROTEIN 1.9 mg/dL (<=0.9); CALCIUM 7.9 mg/dL (8.5-10.1); CARBON DIOXIDE 12.9 mmol/L (21-32); CHLORIDE SERUM 96 mmol/L (98-107); GLUCOSE SERUM 95 mg/dL (74-106); SODIUM SERUM 133 mmol/L (136-145)
[2019-04-17 09:10] LABS: BAND NEUTROPHIL 2 % (0-10); BASOPHIL 0 % (0-2); MONOCYTE 4 % (0-7); PLATELET MORPHOLOGY PLATELETS DECREASED; SEGMENTED NEUTROPHILS 93 % (37-75)
[2019-04-17 09:17] LABS: rbc morphology (normal/abnorm) NORMAL (NORMAL)
[2019-04-17 09:21] LABS: GFR1 7 mL/min
[2019-04-17 09:22] LABS: CREATININE SERUM 8.7 mg/dL (0.7-1.3); POTASSIUM SERUM 2.3 mmol/L (3.5-5.1)
--- NOTE | 2019-04-17 09:30 | NUR ---
CALLED IZZY GUDINO [facility] PER PT REQUEST TO LET THEM KNOW THAT HE WILL NOT BE AT HIS 10 AM APPOINTMENT.
--- NOTE | 2019-04-17 10:06 | NUR ---
PT ASLEEP BUT AROUSABLE, PT DENIES ANY PAIN AT THIS TIME, RESPS E/U, AX INFUSING PER MD ORDER, SEE EMAR, WILL CONTINUE TO MONITOR
[2019-04-17 10:10] LABS: ERYTHROCYTE SED RATE 48 mm/hr (0-15)
--- NOTE | 2019-04-17 10:35 | NUR ---
PT DENIES ANY N/V AND/OR PAIN AT THIS TIME
--- NOTE | 2019-04-17 11:19 | NUR ---
PT IN POSITION OF COMFORT, ASLEEP BUT AROUSABLE, RESPS E/U, CALL LIGHT WITHIN REACH, WILL CONTINUE TO MONITOR
--- NOTE | 2019-04-17 12:25 | NUR ---
PT ASLEEP BUT AROUSABLE, RESPS E/U, WILL CONTINUE TO MONITOR
[2019-04-17 13:04] LABS: CALCIUM 6.6 mg/dL (8.5-10.1); CARBON DIOXIDE 10.5 mmol/L (21-32); TOTAL PROTEIN, SERUM 8.1 g/dL (6.4-8.2)
[2019-04-17 13:23] LABS: ALBUMIN 2.4 g/dL (3.4-5.0)
--- NOTE | 2019-04-17 13:27 | NUR ---
PT TALKING WITH MED STUDENT AT BEDSIDE, IN NAD, RESPS E/U
--- NOTE | 2019-04-17 13:56 | NUR ---
REPORT GIVEN TO MICHEL KEE FROM ICU, PT AAOX4 AND READY FOR ADMIT TO ICU 9
[2019-04-17 15:04] VITALS: BP 88/51
--- NOTE | 2019-04-17 15:07 | NUR ---
DR AGUIRRE PRESENT AT BEDSIDE DISCUSSING POC WITH PT.
--- NOTE | 2019-04-17 15:35 | NUR ---
RC'D PT FROM ED VIA ISMAEL WITH RN PRESENT AT BEDSIDE. PT A/A/O/X4, SPEECH CLEAR AND APPROPRIATE. DENIES LOZANO/DIZZINESS. PT RESPONDS TO VERBAL COMMANDS AND ABLE TO MAKE NEEDS KNOWN. 3MM PUPILS AND BRISK BILAT. RUC TISHA CATH INTACT, DRESSING CDI. RANJITH MIDLINE, DRESSING CDI. RESPIRATIONS EQUAL AND UNLABORED. LUNGS DIM IN BASES. ON 2L O2 VIA NC, DENIES SOB. SPO2 100%, NO RESP DISTRESS. NSR WITH PROLONGED QT, HR 79. S1S2 AUSCULTATED. PT DENIES CP. PALP PULSES, NO EDEMA NOTED. SKIN WARM TO TOUCH. IV LFA INFUSING NS @100. GENERALIZED WEAKNESS, PT ABLE TO REPOSITION. PT REPORTED POOR INTAKE D/T N/V/D. ABDOMEN SOFT AND FLAT. ACTIVE BS. LOOSE DARK BM NOTED. F/C, NO OUTPUT NOTED. PT REPORTS ANURIC, HD T/TH/SAT. F/C REMOVED AT THIS TIME. DARK DISCOLORATIONS NOTED TO GENERALIZED BODY, SHERIF. PT CALM AND COOPERATIVE AT THIS TIME. BED IN LOWEST POSITION. WILL CONT TO MONITOR REMOVED AT THIS TIME.
--- NOTE | 2019-04-17 17:45 | NUR ---
PT RESTING IN BED WITH NO APPARENT SIGNS OF DISTRESS. RESPIRATIONS EQUAL AND UNLABORED. ON 2L O2 VIA NC, DENIES SOB. NO RESP DISTRESS. PT DENIES CHEST PAIN AT THIS TIME. PT SOILED WITH LOOSE DARK BROWN STOOL, CLEANED AT THIS TIME. PT ANURIC. RUC TISHA CATH, DRESSING CDI. RANJITH MIDLINE INTACT, DRESSING CDI. RH AND LFA IV, PATENT AND INTACT. NO ACUTE SKIN CHANGES NOTED AT THIS TIME. GENERALIZED DARK DISCOLORATIONS NOTED, RESEARCH COORDINATOR. NS INFUSING @50. BED IN LOWEST POSITION. WILL CONT TO MONITOR
--- NOTE | 2019-04-17 19:05 | NUR ---
REPORT GIVEN TO ROQUE KEE. ALL QUESTIONS AND CONCERNS ADDRESSED
--- NOTE | 2019-04-17 19:06 | NUR ---
RECEIVED REPORT FROM LARRY KEE. WILL RESUME CARE.
--- NOTE | 2019-04-17 20:12 | NUR ---
DR. WADDELL AT BESIDE ASSESSING PT. UPDATES PROVIDED.
--- NOTE | 2019-04-17 20:35 | NUR ---
LOGISTICS AND PLANNING MANAGER CHRISTOPHER AT BEDSIDE. DIALYSIS INITIATED. VS PRIOR TO DIALYSIS: T 97.2, HR 72, B/P 100/56(67), RR 16, O2SAT 100%. WILL CONTINUE TO MONITOR.
--- NOTE | 2019-04-17 22:34 | NUR ---
NEW TELEPHONE ORDER FROM DR. AGUIRRE TO GIVE ALBUMIN 25% 200CC IV FOR BP SUPPORT DURING HEMODIALYSIS. ORDER CARRIED OUT.
--- NOTE | 2019-04-17 23:30 | NUR ---
HEMODIALYSIS FINISHED. VS: T97.6, HR 82, BP 93/60(68), RR 16, O2SAT 100%. NO ADVERSE REACTIONS NOTED. PT TOLERATED WELL.
[2019-04-18] VITALS (7 sets, daily range): BP systolic 95–111; BP diastolic 56–69
--- NOTE | 2019-04-18 00:25 | NUR ---
DR. MEJIA AT BEDSIDE ASSESSING PT. UPDATES PROVIDED. NO NEW ORDERS AT THIS TIME.
--- NOTE | 2019-04-18 04:51 | NUR ---
SUPERVISOR NUTRITIONAL YEAST AT BEDSIDE FOR BLOOD DRAW.
[2019-04-18 05:26] LABS: ALBUMIN 3.6 g/dL (3.4-5.0); CALCIUM 8.2 mg/dL (8.5-10.1); CARBON DIOXIDE 24.1 mmol/L (21-32); MAGNESIUM 1.5 mg/dL (1.8-2.4); PHOSPHOROUS 2.4 mg/dL (2.5-4.9)
[2019-04-18 05:34] LABS: BASOPHIL % 0.1 % (0-2); PLATELET COUNT 140 x10^3mcL (130-400); RED CELL DISTRIBUTION WIDTH 16.2 % (11.5-14.5)
[2019-04-18 05:36] LABS: CREATININE SERUM 5.4 mg/dL (0.7-1.3); POTASSIUM SERUM 1.9 mmol/L (3.5-5.1)
--- NOTE | 2019-04-18 06:08 | NUR ---
MADE DR. BLAIR AWARE OF LAB VALUES K+1.9, MG 1.5, PHOS 2.4.
--- NOTE | 2019-04-18 07:14 | NUR ---
GAVE REPORT TO HEDY KEE. ALL QUESTIONS AND CONCERNS ADDRESSED.
--- NOTE | 2019-04-18 07:20 | NUR ---
RECIEVED REPORT FROM VIDHYA NEVAREZ TO ASSUME ALL CARES. ALL QUESTIONS AND CONCERNS ADDRESSED. PATIENT IS CURRENTLY SLEEPING AT THIS TIME. IVF INFUSING TO LEFT HAND IV WITH NO SIGNS OF INFILTRATION NOTED. RIGHT HAND IV IN PLACE AND SALINE LOCKED. RIGHT UPPER CHEST LAURENCE CATH NOTED IN PLACE WITH DRESSING C/D/I. LAST HEMODIALYSIS WAS YESTURDAY 04/17/19 WITH NO OUTPUT, FILTER ONLY. PATIENT IS ANURIC. RUE MIDLINE CATH IN PLACE AND SALINE LOCKED. GENERAL DARK DISCOLORATIONS NOTED TO GENERAL BODY AREA SHERIF. PATIENT HAS A HX OF CHRONIC DIARRHEA. BED TO LOWEST POSITION, SIDE RAILS UP X3, CALL LIGHT WITHIN REACH. WILL CONTINUE TO MONITOR.
--- NOTE | 2019-04-18 09:41 | NUR ---
DR. GARCIA, RESIDENTS, FRENCH BINDING FOLDER AND PRIMARY RN AT BEDSIDE FOR MORNING ROUNDS. PLAN OF CARE DISCUSSED. WILL CONT TO MONITOR.
--- NOTE | 2019-04-18 13:36 | NUR ---
DR. DICKERSON AT BEDSIDE TO SEE AND ASSESS PT, UPDATES PROVIDED. DR. DICKERSON MADE AWARE OF POTASSIUM 2.6, STATES HE WILL REPLACE AND ALSO MENTIONED PT TO HAVE HD TOMORROW. PRIMARY RN AWARE. WILL CONT TO MONITOR.
--- NOTE | 2019-04-18 19:35 | NUR ---
REC'D REPORT FROM HEDY KEE TO ASSUME CARE. PT A/O X4, SPEECH CLEAR AND APPROPRIATE. PERRLA NOTED. EENT FREE OF DISCHARGE. RESPS E/U ON ROOM AIR, SPO2 100%. CHEST RISE EQUAL AND SYMMETRICAL. LUNG SOUNDS DIM HARRY. RACING DRIVER IN PLACE SHOWING NSR. BP 111/69 MAP 81, HR 65. DENIES ANY CP, SYNCOPE OR DIZZINESS. IV TO R HAND AND LFA INTACT AND PATENT. PULSES PALPABLE X4. CAP REFILL < 3 SECS. NO EDEMA NOTED. IVF NS INFUSING @ 50 ML/HR. GEN WEAKNESS NOTED. PT ABLE TO REPOSITION SELF. ABD FLAT, SOFT, NONTENDER TO TOUCH. PT WITH EPISDOES OF WATERY STOOL. PT WITH EPISODE OF VOMIT X1. ZOFRAN IVP GIVEN PER MD ORDER. ANURIC, PT ON HD. RIGHT SUBCLAVIAN LAURENCE CATH IN PLACE, DSG CDI. SCATTERED DARK SKIN DISCOLORATION TO BUE/BLE. CALM AND COOPERATIVE. NO VISITORS AT THIS TIME. ALL NEEDS MET AT THIS TIME. CALL LIGHT WITHIN REACH. WILL CONTINUE TO MONITOR.
--- NOTE | 2019-04-18 19:45 | NUR ---
PT ASSISTED ON BEDPAN, EMPTIED 800 ML WATERY STOOL. PT CLEANED, LINENS CHANGED.
--- NOTE | 2019-04-18 19:52 | NUR ---
PT VOMIT X1, 100ML OUTPUT. ZOFRAN IVP GIVEN PER MD ORDER.
--- NOTE | 2019-04-18 21:02 | NUR ---
EMPTIED PTS BEDPAN, 500ML WATERY STOOL.
--- NOTE | 2019-04-18 23:50 | NUR ---
DR MEJIA IN TO SEE PT, UPDATED ON STATUS. NEW ORDERS REC'D FOR AZITHROMYCIN 1200MG PO QTHURS TO PREVENT INFECTION, BACTRIM DOUBLE STRENGTH PO Q72H TO PREVENT INFECTION, TRUVEDA 1 TAB PO DAILY. ALL ORDERS NOTED AND CARRIED OUT.
[2019-04-19 03:19] VITALS: BP 117/68
[2019-04-19 05:07] LABS: BASOPHIL % 0.2 % (0-2); PLATELET COUNT 161 x10^3mcL (130-400)
[2019-04-19 05:19] LABS: CALCIUM 8.3 mg/dL (8.5-10.1); CARBON DIOXIDE 14.6 mmol/L (21-32); MAGNESIUM 2.3 mg/dL (1.8-2.4); PHOSPHOROUS 3.7 mg/dL (2.5-4.9); POTASSIUM SERUM 3.3 mmol/L (3.5-5.1)
[2019-04-19 05:22] LABS: CREATININE SERUM 7.3 mg/dL (0.7-1.3)
--- NOTE | 2019-04-19 05:22 | NUR ---
DR NORRISED AT BEDSIDE, UPDATED ON STATUS, NO NEW ORDERS GIVEN.
[2019-04-19 07:56] VITALS: Ht 175.3 cm; Wt 49.2 kg
[2019-04-19 08:00] VITALS: BP 99/65
--- NOTE | 2019-04-19 08:00 | NUR ---
ALERT AND ORIENTED. BREATHING FREELY ON RA. 02 SAT 100 %. DENIES ANY PAIN AT THIS TIME. NS INFUSING 50 CC HOUR TO LEFT FA. HAS MIDLINE TO RT UPPER ARM. GOOD APPETITE WITH BREAKFAST. WATERY STOOLS. ABLE TO USE BED FUNES. MULTIPLE SCATTERED BROWNISH DISCOLORED SPOTS OVER ENTIRE BODY. CONTINUES ON PROAMITINE FOR LOW BP. KRIDER WILL BE INFUSED AFTER HD TODAY. BED IN LOW POSITION. HOB 30 DEGREES. CALL LIGHT WITHIN REACH.
--- NOTE | 2019-04-19 09:51 | NUR ---
GAVE BED BATH AND CHANGED LINENS. FLUSHED SL PATENT. PT FLUSHED HIS OWN MIDLINE TO RT UPPER ARM.
--- NOTE | 2019-04-19 09:55 | NUR ---
DR. GARCIA, RESIDENTS, LEASING SPECIALIST AND PRIMARY RN AT BEDSIDE FOR MORNING ROUNDS. PLAN OF CARE DISCUSSED. WILL CONT TO MONITOR.
--- NOTE | 2019-04-19 11:02 | NUR ---
MERISSA HD RN HERE TO START HEMODIALYSIS FOR PT.
--- NOTE | 2019-04-19 11:02 | NUR ---
INFORMED BY MACHINE CLOTHING MAN THAT WE CURRENTLY DON'T HAVE THE MEDICATION TRUVADA AND TO ASK IF THE PATIENT CAN BRING IT FROM HOME. PER THE PT HE DOES NOT HAVE THE MEDICATION AT HOME. MACHINE CLOTHING MAN MADE AWARE AND STATED HE WILL INFORM THE PHARMACIST.
[2019-04-19 12:00] VITALS: BP 113/74
--- NOTE | 2019-04-19 13:00 | NUR ---
CONTINUES ON HD. HAD 1000 CC WATERY STOOL OUT. PT SAYS HE FEELS WASHED OUT. APPARS VERY WEAK. ADMIN PROAMITIDINE.
--- NOTE | 2019-04-19 13:43 | NUR ---
1. Recommend continuing regular diet. 2. Recommend Nepro BID. Discussed recommendations with Dr. Onesimo Peres.
--- NOTE | 2019-04-19 13:43 | NUR ---
Initial Nutrition Assessment: IC09/A ZEENAT GARCIA IA HR Dx: Dehydration, diarrhea, leukocytosis, AIDS PMHx: HIV/AIDS diagnosed 20 years ago, ESRD on hemodialysis 3x weekly, //Tue Chronic hypotension, Hx of Inflammatory segmental colitis, Syphillis PSHx: None Labs: K 3.3L, BUN 30H, CREAT 7.3L, HGB 12.3L Meds: NS, Colace, zofran Diet: Regular PO Intake: (04/18) all meals 25% Ht: 175.26 cm (69") Wt: 49.2 kg (108#) BMI: 16 kg/m2 Bed scale: 50.6 kg IBW: 160# (73 kg) %IBW: 67 UBW: 165# (1 year ago) Age: 39/M Food Allergies: NKFA Skin: multiple scattered brownish discoloration Simone: 15 Edema: none GI: watery stools Last BM: 04/19 Trigger: appears underweight/malnourished, N/V/D>3d, poor PO >3d, unintentional weight loss Per H&P, Pt is a 39 yo male with past medical history of HIV, ESRD on hemodialysis, recently admitted at [facility] [place] for severe diarrhea. Patient came for cramping intermittent 10/10 abdominal pain for one day associated with 5-10 episodes of watery non-bloody diarrhea and 1-2 episodes of non-bloody non-bilious vomiting. He admits to 30 lb weight loss in the past year. RDN Visit (04/19): Patient was alert and oriented and said that he finished most of his breakfast this morning and his appetite is good. Patient said that he has been kept on a regular diet instead of renal diet as patient has hypokalemia d/t diarrhea. Confirmed this with Dr. Onesimo Ferrered. Per progress note (04/19) pt. will has HD today. Problem with: N/V/D/C: diarrhea Problems with: Chewing/Swallowing: none Current appetite: good Recent wt change: lost 57# x 1 year %wt change: 34% significant Vitamin/Supplement use: no Special diet at home: regular Physical activity: none Nutrition education given: Patient has received renal diet education in the past during multiple hospitalizations. Patient said that he has received renal diet education even at his dialysis clinic. Food-drug interactions: Colace- high fiber w/5348-3737 ml fluids Education given: n/a Estimated Nutritional Needs Based on actual body weight 49.2 kg Energy: 8662-3198 kcal/d (35-40 kcal/kg) Protein: 59-74 g/d (1.2-1.5 g/kg) - HD patient Fluid: per doctor Nutrition Diagnosis 1. Increased nutrient needs related to increased metabolic demands as evidenced by patient on HD. 2. Altered GI function related to medical condition as evidenced by diarrhea. 3. Impaired nutrient utilization related to renal dysfunction as evidenced by BUN: 30, CREAT: 7.3 Intervention 1. Recommend continuing regular diet. 2. Recommend Nepro BID. Discussed recommendations with Dr. Onesimo Peres. Monitor/Evaluate Goal: PO intake at least 75% of estimated needs Monitor: PO intake, Labs, GI function F/U in 3-5 days as moderate risk 04/22-
--- NOTE | 2019-04-19 14:50 | NUR ---
HD COMPLETED. HD RN DID NOT TAKE OFF ANY FLUID, FILTERED ONLY.
--- NOTE | 2019-04-19 15:27 | NUR ---
PT WILL BE GOING TO RM 223 B MED SURG FLOOR. REPORT GIVEN TO ABDI KEE.
[2019-04-19 16:13] VITALS: BP 92/54
--- NOTE | 2019-04-19 16:13 | NUR ---
PT TRANSFERED TO ROOM 223B. ABDI KEE WAS IN ROOM TO ACCEPT PT. SENT WITH ALL BELONGINGS. [place] INFUSING. PT STABLE. ORIENTED TO ROOM AND DEVICES.
--- NOTE | 2019-04-19 16:20 | NUR ---
RECEIVED FROM ICU, TRANSFERRED VIA HOSPITAL BED. AWAKE AND ALERT, ORIENTED TO NAME, PLACE, TIME AND SITUATION. SPEECH CLEAR AND APPROPRIATE. ABLE TO MAKE NEEDS KNOWN. BREATHING EVEN AND UNLABORED ON ROOM AIR. LUNG SOUNDS CLEAR. ABLE TO COMPLETE SENTENCES WITHOUT DIFFICULTY. PERIPHERAL LINE TO LEFT FOREARM, K RIDER 20 MEQ WITH XYLOCAINE IN 227 ML BAG INFUSING AT 68ML/HR. SALINE LOCKT TO RIGHT HAND, FLUSHED WELL. MIDLINE TO RIGHT UPPER ARM, CLAMPED. DIALYSIS CATHETER WITH NEW DRESSING, CDI, TO RIGHT CHEST. WITH DARK DISCOLORATIONS TO UPPER AND LOWER EXTREMITIES. BOWEL SOUNDS ACTIVE. STATED HAS PASSED WATERY STOOL X 4 TODAY. HX OF CHRONIC DIARRHEA AND COLITIS. DENIES HAVING PAIN AT THIS TIME. ORIENTED TO ROOM ENVIRONMENT, INSTRUCTED ON USE OF CALL LIGHT TO CALL FOR ASSISTANCE. PLACED WITHIN EASY REACH. PT STATED HE IS ABLE TO USE BEDPAN, PLACED AT BEDSIDE. ALSO PROVIDED WITH COMMODE AT BEDSIDE. INSTRUCTED PT TO CALL FOR ASSISTANCE, ESPECIALLY IF NEEDING TO GET OUT OF BED. HOB ELEVATED 30 DEG.
--- NOTE | 2019-04-19 17:20 | NUR ---
ENDORSED PT TO NURSE NENA. PT AWAKE AND ALERT
--- NOTE | 2019-04-19 18:52 | NUR ---
NO ACUTE CHANGES AT THIS TIME. NO ACUTE RESP DISTRESS OR SOB NOTED. DENIES ANY DISCOMFORT AT THIS TIME. WILL ENDORSE TO INCOMING RN.
--- NOTE | 2019-04-19 19:35 | NUR ---
RECEIVED REPORT FROM AM NURSE. PT LAYING DOWN IN BED. PT AAOX4, ABLE TO MAKE NEEDS KNWON. ON TELE#5 [address] SR. DENIES CP/PRESSURE AT THIS TIME. PALPABLE PULSES TO ALL EXTREMETIES. NO EDEMA NOTED. LUNG DOUNDS CTA ON RA. BREATHING EVEN AND UNLABORED. NO ACUTE DISTRESS NOTED. ABD SOFT AND FLAT. ACTUVE BS X4 QUAD. C/O WATERY DIARRHEA. DENIES N/V. ON HD, LAST HD TODAY 04/19/19 WITH 0 OUTPUT. GENERALIZED WEAKNESS. DRY SCABS AND DICOLORATION TO BLE AND BUE. IV TO LFA, RH PATENT AND INTACT. SITE FREE FROM REDNESS AND SWELLING. MIDLINE RIGHT UPPER ARM USED PER PT ONLY AT HOME, STATED PT. LAURENCE CATH TO RIGHT UPPER CHEST WITH DRESSING CDI. BED AT LOWEST SETTING. SIDE RAILS X2 UP. CALL LIGHT WITHING REACH. WILL CONTINUE TO MONITOR.
[2019-04-19 21:08] VITALS: BP 90/61
--- NOTE | 2019-04-20 00:24 | NUR ---
PT LAYING DOWN IN BED WITH EYES CLOSED. BREATHING EVEN AND UNLABORED ON RA. NO ACUTE DISTRESS NOTED. NS RUNNING TO RFA AT 50ML/HR. BED AT LOWEST SETTING. SIDE RAILS X2 UP CALL LIGHT WITHING REACH. WILL CONTINUE TO MONITOR.
--- NOTE | 2019-04-20 05:37 | NUR ---
PT SLEPT AT INTERVALS THROGHOUT THE NIGHT. BREATHING EVEN AND UNLABORED ON RA. NO ACUTE DISTRES NOTED. ASSISTED WITH BEDPAN 5 TIMES DURING SHIFT. EMPIED WATERY DIARRHEA. NO SIGNIFICANT CHANGES DURING SHIFT. ALL NEEDS ASSESSED AND ATTENDED TO. IV TO RFA RUNNING NS AT 50ML/HR. SITE FREE FROM REDNESS AND SWELLING. BED AT LOWEST SETTING. SIDE RAILS X2 UP. CALL LIGHT WITHING REACH. WILL ENDORSE CARE TO AM NURSE.
[2019-04-20 05:39] VITALS: BP 94/64
--- NOTE | 2019-04-20 08:00 | NUR ---
SHIFT ASSESSMENT DONE. BARRY A/A/OX4; TELE#5; SR-ST; HR 89 NOW. DENIED CHEST PAIN. NO RESP DISTRESS ON RA. DIARRHEA LARGE GREEN WATERY BM EVERY HOUR AROUND 700CC EACH TIME. NO ABD PAIN. IVF OF NS 50CC/HR TO LFA. IVHL'D TO R HAND. MIDLINE TO R UPPER ARM, DRSG INTACT. GENERAL WEAKNESS. ANURIA. H/D CATH TO R UPPER CHEST WALL. CALL LIGHT IN REACH.
[2019-04-20 09:23] LABS: PLATELET COUNT 163 x10^3mcL (130-400)
[2019-04-20 09:24] LABS: BASOPHIL % 0 % (0-2); RED CELL DISTRIBUTION WIDTH 17.1 % (11.5-14.5)
[2019-04-20 09:42] LABS: CALCIUM 7.9 mg/dL (8.5-10.1); CARBON DIOXIDE 18.3 mmol/L (21-32); MAGNESIUM 1.8 mg/dL (1.8-2.4)
[2019-04-20 09:51] VITALS: BP 98/65
[2019-04-20 09:55] LABS: CREATININE SERUM 5.3 mg/dL (0.7-1.3)
[2019-04-20 09:56] LABS: POTASSIUM SERUM 2.9 mmol/L (3.5-5.1)
--- NOTE | 2019-04-20 11:42 | NUR ---
NOTIFIED DR. BLAIR WITH PATIENT'S POTASSIUM LEVEL 2.9 TODAY. NEW ORDER OF KCL 40 MEQ PO GIVEN AND K RIDER 40 MEQ IV STARTED.
[2019-04-20 12:58] VITALS: BP 109/73
[2019-04-20 16:40] VITALS: BP 112/67
--- NOTE | 2019-04-20 18:56 | NUR ---
PATIENT STILL HAVING HEAVY DIARRHEA, EST WATRY STOOL OVER 8000 CC. WOULD HAVE H/D TOMORROW. ENDORSED CARE TO NOC NURSE.
--- NOTE | 2019-04-20 19:45 | NUR ---
RECEIVED REPORT FROM DAY SHIFT RN. PT RESTING IN BED, WATCHING TV. AA&O X4. NO SOB ON ROOM AIR. BREATHING EVEN AND UNLABORED. NO C/O PAIN. IV TO LFA, NS INFUSING. IV SALINE LOCKED TO RIGHT HAND. MIDLINE TO R UPPER ARM, DRESSING INTACT. LAURENCE CATH TO RIGHT UPPER CHEST, DRESSING C/D/I. SAFETY MEASURES IN PLACE. BED IN LOWEST POSITION. SIDE RAILS UP X2. INSTRUCTED PT TO USE THE CALL LIGHT FOR ASSISTANCE. CALL LIGHT WITHIN REACH.
[2019-04-20 21:05] VITALS: BP 116/79
--- NOTE | 2019-04-21 02:25 | NUR ---
PT RESTING WITH EYES CLOSED. NO SOB ON ROOM AIR. NO DISTRESS NOTED. CALL LIGHT WITHIN REACH. WILL CONTINUE TO MONITOR.
--- NOTE | 2019-04-21 05:03 | NUR ---
PT RESTED IN LONG INTERVALS THROUGHOUT SHIFT. NO SOB ON ROOM AIR. BREATHING EVEN AND UNLABORED. NO C/O N/V/ABD PAIN. NO DISTRESS NOTED. PT REPORTS STILL HAVING WATERY STOOLS. SAFETY MEASURES MAINTAINED. ALL NEEDS ATTENDED TO. CALL LIGHT WITHIN REACH. HD SCHEDULED TODAY. METAL DIE FINISHER AWARE. WILL CONTINUE TO MONITOR AND ENDORSE CARE TO ONCOMING RN.
[2019-04-21 05:32] VITALS: BP 103/65
[2019-04-21 08:03] LABS: CALCIUM 7.7 mg/dL (8.5-10.1); CARBON DIOXIDE 10.1 mmol/L (21-32); MAGNESIUM 1.6 mg/dL (1.8-2.4); PHOSPHOROUS 4.1 mg/dL (2.5-4.9); POTASSIUM SERUM 3.6 mmol/L (3.5-5.1)
[2019-04-21 08:04] LABS: BASOPHIL % 0.1 % (0-2); PLATELET COUNT 136 x10^3mcL (130-400)
[2019-04-21 08:07] LABS: RED CELL DISTRIBUTION WIDTH 16.5 % (11.5-14.5)
[2019-04-21 08:08] LABS: CREATININE SERUM 6.9 mg/dL (0.7-1.3)
[2019-04-21 09:23] VITALS: BP 114/75
[2019-04-21] MEDS ORDERED: K-TAB20 MEQ PO (12:04)
[2019-04-21] MEDS ORDERED: AZITHROMYCIN600 MG PO (12:14)
[2019-04-21] MEDS ORDERED: BAC PO (12:14)
[2019-04-21 15:37] VITALS: BP 114/75
[2019-04-21 17:31] VITALS: BP 108/72
--- NOTE | 2019-04-21 18:44 | NUR ---
COMPLETED THE DIALYSIS AND NO OUTPUT AT THIS TIME. ONLY CLEANING. PATIENT WILL GIVE CONTACT INFORMATION ON THE VISITING NURSE SO TO CONTINUE HIS PREVIOUS HOME CARE FOR THE MIDLINE CATH. PATIENT OOB AND HAD ANOTHER LOOSE STOOL. DENIES AND IS WANTING TO GO HOME. WILL ADVISE THE SS SHOULD FOLLOW UP WITH HIS REQUEST WHEN THEY RETURN TOMORROW.
--- NOTE | 2019-04-21 19:40 | NUR ---
PT GIVEN DISCHARGE PACKET; DISCUSSED CURRENT STAY INCLUDING MEDS, LABS, AND TEACHINGS; ALL QUESTIONS WERE ANSWERED, AND PT VERBALIZED UNDERSTANDING. ALL D/C FORMS SIGNED. ID BANDS REMOVED, IV REMOVED, SITE NO S/S INFECTION OR BLEEDING. PT THEN TRANSPORTED BY RN VIA W/C TO [facility]. PT A/A/O X 4, CALM, COOPERATIVE. NO ACUTE RESPIRATORY DISTRESS, PAIN, OR DISCOMFORT NOTED.
== END 2019-04-21 19:40 | disposition home or self-care (01) | DRG 890 ==
LOC: ED 06:46 → IC 11:32 → DU 04-19 15:57 → MU 04-20 18:30
PROVIDERS: Specialist; ADMIT Internal Medicine
DX: A41.9 Sepsis, unspecified organism (principal); B20 Human immunodeficiency virus [HIV] disease; N18.6 End stage renal disease; I95.89 Other hypotension; E44.0 Moderate protein-calorie malnutrition; I12.0 Hypertensive chronic kidney disease with stage 5 chronic kidney disease or end stage renal disease; E83.42 Hypomagnesemia; E83.39 Other disorders of phosphorus metabolism; B25.8 Other cytomegaloviral diseases; E87.6 Hypokalemia; K52.9 Noninfective gastroenteritis and colitis, unspecified; R74.0 Nonspecific elevation of levels of transaminase and lactic acid dehydrogenase [LDH]; B18.2 Chronic viral hepatitis C; Z99.2 Dependence on renal dialysis; Z68.1 Body mass index [BMI] 19.9 or less, adult
CPT/HCPCS: 36600; 82962; 84439; 97116-GP; G0378; J1644; J1885; J1956; J2405; J2543; J3370; J3475; J3480; J3490; J7030; J7050; P9047; Q0092

== ENCOUNTER 2019-05-08 14:28 | Emergency (ER) | payer OTHER ==
[~2019-05-08] VITALS: Ht 175.3 cm; Wt 53.1 kg
[~2019-05-08 14:28] MED LIST changes: +AZITHROMYCIN600 MG PO; +BAC PO; +K-TAB20 MEQ PO
[2019-05-08 15:09] VITALS: Ht 175.3 cm; Wt 53.1 kg
[2019-05-08 16:45] LABS: PLATELET COUNT 337 x10^3mcL (130-400)
[2019-05-08 16:52] LABS: RED CELL DISTRIBUTION WIDTH 18.2 % (11.5-14.5)
[2019-05-08 17:29] LABS: ALBUMIN 3.6 g/dL (3.4-5.0); ALKALINE PHOSPHATASE 197 U/L (46-116); ALT/SGPT 105 U/L (16-63); AST/SGOT 88 U/L (15-37); BILIRUBIN TOTAL 0.4 mg/dL (0.20-1.00); CALCIUM 7.8 mg/dL (8.5-10.1); CARBON DIOXIDE 11.1 mmol/L (21-32); CHLORIDE SERUM 101 mmol/L (98-107); GLUCOSE SERUM 93 mg/dL (74-106); POTASSIUM SERUM 3.9 mmol/L (3.5-5.1); SODIUM SERUM 135 mmol/L (136-145)
[2019-05-08 17:32] LABS: GFR1 6 mL/min; TOTAL PROTEIN, SERUM 12.8 g/dL (6.4-8.2)
[2019-05-08 17:36] LABS: CREATININE SERUM 10.2 mg/dL (0.7-1.3)
[2019-05-08 18:26] LABS: ATYPICAL LYMPH 1 %; BAND NEUTROPHIL 5 % (0-10); MONOCYTE 8 % (0-7); PLATELET MORPHOLOGY PLATELETS NORMAL; SEGMENTED NEUTROPHILS 63 % (37-75); rbc morphology (normal/abnorm) ABNORMAL (NORMAL)
[2019-05-08 19:16] VITALS: BP 115/77
== END 2019-05-08 19:16 | disposition home or self-care (01) ==
LOC: ED 14:28
PROVIDERS: Emergency Medicine
DX: E87.2 Acidosis (principal); N18.6 End stage renal disease; R53.1 Weakness; R11.10 Vomiting, unspecified; R19.7 Diarrhea, unspecified; Z99.2 Dependence on renal dialysis
CPT/HCPCS: J2405; J3490

== ENCOUNTER 2019-07-19 13:45 | Inpatient (IN) | payer SELFPAY ==
[~2019-07-19] VITALS: Ht 175.3 cm; Wt 47.4 kg
--- NOTE | 2019-07-19 14:05 | NUR ---
PT BIB AMBULANCE TODAY WITH C/C OF BODY ACHES. PT WAS GOING TO DIALYSIS THIS MORNING AND WAS NOTED TO BE HYPOTENSIVE, 86 SYSTOLIC. PT WAS NOT DIALYZED. PT HAS DIALYSIS PORT TO RIGHT UPPER CHEST. PT DENIES ANY LIGHTHEADED OR DIZZINESS, NO CHEST PAIN OR SOB. ONLY C/O GENERALIZED BODY ACHES AND WEAKNESS. PT WAS ALSO RECENTLY SEEN AT [facility] [place] FOR HIS N/V/D THAT HAS BEEN ONGOING FOR "MONTHS." PT DOES HAVE ANY ACTIVE VOMITING OR DIARRHEA. PT SITTING IN HIGH DOWNING'S IN POSITION OF COMFORT. PT IS AWAKE AND ALERT, RESP E/U, NAD NOTED. AWAITING MSE.
--- NOTE | 2019-07-19 14:18 | NUR ---
DR POLLOCK AT BEDSIDE FOR MSE.
--- NOTE | 2019-07-19 14:43 | NUR ---
LAB COMPLETE AT [facility] IN PROGRESS
[2019-07-19 15:06] LABS: BASOPHIL % 0.1 % (0-2)
[2019-07-19 15:07] LABS: PLATELET COUNT 64 x10^3mcL (130-400)
[2019-07-19 15:24] LABS: ALKALINE PHOSPHATASE 128 U/L (46-116); ALT/SGPT 82 U/L (16-63); AST/SGOT 95 U/L (15-37); BILIRUBIN TOTAL 0.4 mg/dL (0.20-1.00); CALCIUM 6.3 mg/dL (8.5-10.1); CHLORIDE SERUM 105 mmol/L (98-107); GLUCOSE SERUM 87 mg/dL (74-106); MAGNESIUM 1.6 mg/dL (1.8-2.4); SODIUM SERUM 133 mmol/L (136-145); T4(THYROXINE) 5.2 ug/dL (4.7-13.3)
[2019-07-19 15:28] LABS: ALBUMIN 2.3 g/dL (3.4-5.0); GFR1 5 mL/min
[2019-07-19 15:31] LABS: CHOLESTEROL 82 mg/dL (<200); HDL CHOLESTEROL 20 mg/dL (40-60); LIPASE 2016 IU/L (73-393); TOTAL PROTEIN, SERUM 9.3 g/dL (6.4-8.2)
[2019-07-19 15:33] LABS: POTASSIUM SERUM 2.5 mmol/L (3.5-5.1)
[2019-07-19 15:34] LABS: CARBON DIOXIDE 7.2 mmol/L (21-32)
[2019-07-19 15:35] LABS: CREATININE SERUM 11.3 mg/dL (0.7-1.3)
--- NOTE | 2019-07-19 15:42 | NUR ---
EKG IN PROGRESS BY EMT
--- NOTE | 2019-07-19 17:25 | NUR ---
CALLED AND GAVE REPORT TO JUSTYNA, ALL QUESTIONS ADDRESSED AT THIS TIME.
--- NOTE | 2019-07-19 17:33 | NUR ---
US AT BEDSIDE
--- NOTE | 2019-07-19 17:50 | NUR ---
RECEIVED THE PATIENT FROM ER DEPT VIA [facility]; THE PATIENT IS TOO WEAK TO TRANSFER FROM [facility] TO BED. PATIENT AWAKE AND ORIENTED TO PERSON, PLACE AND TIME. TELE # 1 HOOKED UP TO THE PATIENT, WHICH READS NORMAL SINUS AT THIS TIME. VS CHECKED AND DOCUMENTED. IV SITE TO LAC. HEMODIALYSIS CATH TO RIGHT UPPER CHEST. CALL LIGHT WITHIN REACH. SIDE RAILS UP X3.
[2019-07-19 17:55] LABS: TRIGLYCERIDES 148 mg/dL (<150)
[2019-07-19 18:21] VITALS: BP 117/73
--- NOTE | 2019-07-19 18:40 | NUR ---
DR. NORRISED VERBALLY ORDER TO STOP THE IVF BOLUS OF NS AT 126ML/HR, WHICH WAS ORDER BY ED DOCTOR AND START NACL WITH 20MEQ IN 1000ML AT 50ML/HR. THE ORDER CARRIED OUT.
--- NOTE | 2019-07-19 19:28 | NUR ---
PER PATIENT'S REQUEST, THE PATIENT'S SISTER, NAZIA GUAN WAS CALLED AND TOLD THAT THE PATIENT WAS IN ICU BED 1.
--- NOTE | 2019-07-19 19:47 | NUR ---
RECEIVED PATIENT AWAKE, ALERT AND ORIENTED ABLE TO MAKE NEEDS KNOWN. NO SIGN OF ACUTE RESPIRATORY DISTRESS NOTED. BREATHING EASY AND NONLABOR SATTING AT 98% RA. NSR ON MONITOR,DENIES CHESTPAIN. ABDOMEN ROUND SOFT AND NONTENDER WITH ACTIVE BS.PERMACATH TO RIGHT UPPER CHESTWALL INTACT, LAST HD 07/14/19 AFTER PATIENT MISSED 2 HD.IV TO LAC INTACT AND INFUSINGW ELL. WILL CONTINUE TO MONITOR. CALL LIGHT WITHIN REACH.
[2019-07-19 20:00] VITALS: BP 97/59
[2019-07-19 22:52] LABS: POTASSIUM SERUM 2.5 mmol/L (3.5-5.1)
[2019-07-19 22:53] LABS: CARBON DIOXIDE 9.5 mmol/L (21-32)
--- NOTE | 2019-07-19 23:07 | NUR ---
DR CROSS MADE AWARE OF K LEVEL 2.5 INSPITE OF K RIDER 40MEQ WAS GIVEN. RELAYED ALSO CRITICAL RESULT OF ABG PER RT.
--- NOTE | 2019-07-19 23:13 | NUR ---
WITH NEW ORDERS FROM DR TAY OBREGON TO CARRY OUT. PATIENT APPEAR TO BE SLEEPING AT THIS TIME WITH NO SIGN OF DISTRESS.
--- NOTE | 2019-07-19 23:14 | NUR ---
HAD BM LOOSE IN MODERATE AMOUNT, SPECIMEN COLLECTED FOR STOOL CULTURE AND C DIFF.
[2019-07-19 23:21] VITALS: BP 95/60
--- NOTE | 2019-07-19 23:56 | NUR ---
DR MEJIA CAME WITH NEW ORDERS TO GIVE PATIENT CYTOVENE 58MG IVPB NOW, PHARMACY INFORMED BY CHARGE NURSE.
--- NOTE | 2019-07-20 00:50 | NUR ---
PER PHARMACY CYTOVENE 58MG NOT AVAILABLE AT THIS TIME, SCHEDULED TO BE GIVEN AT 0900AM TODAY.
[2019-07-20 03:39] VITALS: BP 101/63
--- NOTE | 2019-07-20 05:00 | NUR ---
SLEPT MOST OF THE TIME DENIES PAIN THE ENTIRE SHIFT. CHECKED AT INTERVALS FOR NEEDS AND COMFORT. ALL NEEDS ATTENDED.
[2019-07-20 06:23] LABS: CARBON DIOXIDE 11.3 mmol/L (21-32); MAGNESIUM 1.4 mg/dL (1.8-2.4); PHOSPHOROUS 7.1 mg/dL (2.5-4.9)
[2019-07-20 06:26] LABS: POTASSIUM SERUM 2.5 mmol/L (3.5-5.1)
[2019-07-20 06:27] LABS: CALCIUM 5.7 mg/dL (8.5-10.1); CREATININE SERUM 11.3 mg/dL (0.7-1.3)
--- NOTE | 2019-07-20 06:29 | NUR ---
K LEVEL- 2.5 DR RODRIGUEZ SAYED MADE AWARE, NO ORDERS NADE AT THIS TIME. WILL ENDORSE CONTINOUS MONITORING TO AM SHIFT.
[2019-07-20 07:34] LABS: RED CELL DISTRIBUTION WIDTH 17.2 % (11.5-14.5)
[2019-07-20 07:35] LABS: BASOPHIL % 0 % (0-2); PLATELET COUNT 64 x10^3mcL (130-400)
[2019-07-20 08:00] VITALS: BP 93/58
--- NOTE | 2019-07-20 08:00 | NUR ---
WAKING UP SITTING UP FOR BREAKFAST. ORIENTED. BREATHING FREELY ON RA. DENIES ANY PAIN. NS & 20K INFUSING 50 CC HOUR TO LEFT AC. APPEARS THIN WITH GENERALIZED WEAKNESS. ON CLEAR LIQUIDS FOR PANCREATITIS TOLERATING WELL. NO URINE OUT PUT, HS ORDERED FOR TODAY. LAST WATERY STOOL LAST NIGHT. ABLE TO GET TO BEDSIDE COMMODE AND MOVE AROUND IN BED. CALL LIGHT WITHIN REACH. AFEBRILE.
[2019-07-20 08:16] VITALS: Ht 175.3 cm; Wt 47.4 kg
--- NOTE | 2019-07-20 10:29 | NUR ---
PATIENT ROUNDS WITH DR. GIBSON AND CARLY. CHARGE NURSE AND PRIMARY NURSE AT BEDSIDE. UPDATES PROVIDED AND POC DISCUSSED. WILL CONTINUE TO MONITOR.
--- NOTE | 2019-07-20 10:39 | NUR ---
Discount pharmacy card and list to low cost medical clinics given to patient by Vandana Soria.
--- NOTE | 2019-07-20 10:58 | NUR ---
K RIDER INFUSING. CHANGED LINENS AND GOWN X 2 FOR LARGE WATERY STOOLS. CONSENT SIGNED FOR DIALYSIS TODAY.
--- NOTE | 2019-07-20 12:25 | NUR ---
PT C/O ABD PAIN, PAIN MEDICATION GIVEN FOR PAIN LEVEL /10
[2019-07-20 13:00] VITALS: BP 99/76
--- NOTE | 2019-07-20 13:34 | NUR ---
WHEN PT IS DC'D TO HOME HE WILL NEED PRECRIPTION FOR ANTIVIRALS ORDERED BY DR. MEJIA.
[2019-07-20 14:00] LABS: CARBON DIOXIDE 10.1 mmol/L (21-32)
[2019-07-20 14:14] LABS: POTASSIUM SERUM 2.4 mmol/L (3.5-5.1)
[2019-07-20 14:15] LABS: CREATININE SERUM 11.7 mg/dL (0.7-1.3)
--- NOTE | 2019-07-20 14:32 | NUR ---
DIALYSIS NURSE ALLY HERE TO PERFORM DIALYSIS.
--- NOTE | 2019-07-20 15:07 | NUR ---
RESTING QUIETLY. SEEN BY DR. PANDYA. WILL CONTINUE TO MONITOR BMP FOR LOW K+. NS & 20K INFUSING 50 CC HOUR. K RIDER INFUSED. SODIUM BICARB IV PUSH. CONSNET SIGNED FOR HD TODAY. DIALYSIS NURSE WILL COME IN APPROX 1400 TODAY. ALL LIGHT WITHIN REACH.
[2019-07-20 16:00] VITALS: BP 91/56
--- NOTE | 2019-07-20 16:13 | NUR ---
SLEEPING OFF AND ON. DIALYSIS COMPLETED. NO FLUID TAKEN OFF, ALBUMIN INFUSED. DR. PANDYA PAGED FOR HD NURSE ALLY. DR. BLAIR PAGED FOR BP 80/44. WILL PUT IN T.C. TO PHARMACY FOR CYTOVINE. ORDER FOR BOLUS.
--- NOTE | 2019-07-20 16:54 | NUR ---
DR. PANDYA PAGED X 3 MORE TIMES FOR HD RN. RENAE'S DRAWN.
--- NOTE | 2019-07-20 17:45 | NUR ---
HEDY CHARGE NURSE GAVE ABG RESULTS TO DR. PANDYA.ALLY, DIALYSIS NURSE ALSO GAVE HIS REPORT TO DR. PANDYA.
--- NOTE | 2019-07-20 18:45 | NUR ---
LETHARGIC AND ORIENTED BREATHING FREELY ON RA. REMAINS VERY WEAK AND THIN. ONGOING LARGE WATERY STOOLS. DOES NOT WANT RECTAL TUBE. SOMETIMES ABLE TO GET TO COMMODE. CYTOVINE INFUSING. MOTHER AND FRIEND AT BEDSIDE. POOR APPETITE WITH DINNER. GOOD INTAKE WITH BREAKFAST AND LUNCH. LIKES ICE. BP HAS CHRISTOPHER RUNNING LOW ALL DAY. TAKING PRO AMIDINE FOR BP SUPPORT. ZITHROMAX,LEVAQUIN AND FLAGYL IV ABX. CALL LIGHT WITHIN REACH.
[2019-07-20 20:00] VITALS: BP 93/55
--- NOTE | 2019-07-20 20:00 | NUR ---
PATIENT RECEIVED AWAKE, ALERT, ORIENTED X3. FAMILY MEMBER AT THE BEDSIDE. RESPIRATION EVEN AND UNLABORED, ON ROOM AIR. ONGOING 0.9% NS W/ 20 MEQ KCL AT 50 ML/HR. ON CLEAR LIQUID DIET. EPISODES OF WATERY STOOLS DURING THE DAY. HEMODIALYSIS PATIENT-TTHS. REDNESS TO RECTAL AREA, SCATTERED SKIN DISCOLORATION TO ENTIRE BODY. NO EDEMA NOTED. DENIES PAIN AT THIS TIME. WILL CONTINUE TO MONITOR.
[2019-07-20 22:20] LABS: CALCIUM 6.3 mg/dL (8.5-10.1); CARBON DIOXIDE 17.8 mmol/L (21-32)
[2019-07-20 22:31] LABS: CREATININE SERUM 7.8 mg/dL (0.7-1.3); POTASSIUM SERUM 1.8 mmol/L (3.5-5.1)
[2019-07-21] VITALS: BP 93/51
--- NOTE | 2019-07-21 | NUR ---
PATIENT ASLEEP IN BED. RESPIRATION EVEN AND UNLABORED, ON ROOM AIR. DENIES PAIN AT THIS TIME. ONGOING K RIDER, LATEST POTASSIUM LEVEL 1.8 PATIENT HAD 1 EPISODE OF LIQUID STOOL. WILL CONTINUE TO MONITOR.
[2019-07-21 04:00] VITALS: BP 92/54
[2019-07-21 05:09] LABS: BASOPHIL % 0.2 % (0-2)
[2019-07-21 05:17] LABS: CALCIUM 6.5 mg/dL (8.5-10.1); MAGNESIUM 1.5 mg/dL (1.8-2.4); PHOSPHOROUS 3.3 mg/dL (2.5-4.9)
[2019-07-21 05:19] LABS: PLATELET COUNT 68 x10^3mcL (130-400); RED CELL DISTRIBUTION WIDTH 18.1 % (11.5-14.5)
[2019-07-21 05:26] LABS: CREATININE SERUM 8.6 mg/dL (0.7-1.3); POTASSIUM SERUM 2.8 mmol/L (3.5-5.1)
--- NOTE | 2019-07-21 06:49 | NUR ---
PATIENT RESTING IN BED. RESPIRATION EVEN AND UNLABORED, ON ROOM AIR. DENIES PAIN AT THIS TIME. IV SITE NO SIGN OF INFILTRATION. ASSISTED WITH NEEDS. SAFETY OBSERVED. KEPT CLEAN AND DRY.
[2019-07-21 07:00] VITALS: BP 74/38
--- NOTE | 2019-07-21 07:00 | NUR ---
RECEIVED REPORT FROM LIZET KEE. ALL QUESTIONS ANSWERED AND ADDRESSED.
--- NOTE | 2019-07-21 07:45 | NUR ---
PT HAD A LARGE WATERY STOOL. APPROX -300ML OF DIARRHEA NOTED. PT CLEANED, CHUCKS CHANGED, GOWN CHANGED.
--- NOTE | 2019-07-21 08:50 | NUR ---
PLACED PT ON BEDPAN AND HAD -500ML OF DIARRHEA NOTED. PT CLEANED, CHUCKS CHANGED, GOWN CHANGED.
--- NOTE | 2019-07-21 10:49 | NUR ---
DR. PNADYA AT BEDSIDE. NURSING UPDATES. CONTINUE BMP Q8H AND FOLLOW POTASSIUM ORDERS. NO OTHER NEW ORDERS AT THIS TIME.
[2019-07-21 11:04] VITALS: BP 90/59
--- NOTE | 2019-07-21 11:20 | NUR ---
DR. GIBSON AND RESIDENTS AT BEDSIDE ASSESSING PT. NURSING UPDATES. MAGNESIUM TO BE REPLACED. WILL CARRY OUT ORDERS ONCE RECEIVED.
[2019-07-21 15:04] VITALS: BP 94/49
--- NOTE | 2019-07-21 15:10 | NUR ---
PLACED PT ON BEDPAN. -500CC OF DIARRHEA NOTED. PT CLEANED, CHUCKS CHANGED, GOWN CHANGED.
[2019-07-21 15:39] LABS: CALCIUM 6.7 mg/dL (8.5-10.1); CARBON DIOXIDE 12.3 mmol/L (21-32); POTASSIUM SERUM 3.8 mmol/L (3.5-5.1)
[2019-07-21 15:52] LABS: CREATININE SERUM 9.5 mg/dL (0.7-1.3)
--- NOTE | 2019-07-21 15:53 | NUR ---
REPORT GIVEN TO GI KEE. NURSING UPDATES, ALL QUESTIONS ANSWERED AND ADDRESSED. PT WILL BE GOING TO BED 238-B WITH TELE AND PT'S BELONGINGS.
--- NOTE | 2019-07-21 16:29 | NUR ---
RECEIVED PT FROM ICU. PT AOX4, FOLLOWS COMMANDS, SPEECH CLEAR, PERRLA, NO FACIAL DROOP, DENIES HEADACHE. RESP E/U ON RA, EQUAL CHEST RISE, LUNG SOUNDS CLEAR TO BUL, CONGESTED TO BLL, REPORTS MILD SOB, HOB ELEVATED, O2 SAT 99%. ON TELE 26 SHOWING NSR, HR: 67, DENIES CHEST PAIN OR PALPITATIONS. ABD SOFT/FLAT/TENDER TO RLQ, C/O LOOSE BM, DENIES N/V. PERMACATH TO R CHEST, DRESSING CDI, PT REPORTS HE IS OLIGURIC. ERYTHEMA TO BUTTOCKS SHERIF, DIFFUSE ECCHYMOSIS TO BUE AND BLE. IV TO LAC W/ NO SIGNS OF INFILTRATION, IVF INFUSING WELL. BED IN LOWEST POSITION AND CALL LIGHT WITHIN REACH. WILL CONTINUE TO MONITOR.
--- NOTE | 2019-07-21 18:17 | NUR ---
PT IN BED HAVING DINNER, TOLERATING CLEAR LIQUID DIET WELL, AOX4, RESP E/U ON RA. DENIES SOB, NAUSEA OR PAIN, NO ACUTE DISTRESS NOTED. IV TO LAC W/ NO SIGNS OF INFILTRATION, IVF INFUSING WELL. BED IN LOWEST POSITION AND CALL LIGHT WITHIN REACH. CONTACT PRECAUTIONS MAINTAINED. WILL ENDORSE TO ONCOMING NURSE.
[2019-07-21 19:29] VITALS: BP 103/64
--- NOTE | 2019-07-21 19:35 | NUR ---
RECEIVED PT FROM DAY SHIFT RN. PT AAOX4 DENIES LOZANO/DIZZINESS. TELE #26 SR HR 71. PT DENIES CHEST PAIN/PRESSURE. BREATHING EVEN AND UNLABORED ON RA WITH NO SOB NOTED. HD ACCESS ON RIGHT UPPER CHEST. IV LAC PATENT.UNABLE TO COMPLETE SKIN ASSESS, PER PT IS FEELING TIRED AND WANTS TO SLEEP/BE LEFT ALONE. NO SIGNS OF DISTRESS. CALL BUTTON WITHIN REACH. SAFETY PRECAUTIONS IN PLACE. CONTACT ISOLATION. WILL CONTINUE TO MONITOR.
[2019-07-21 21:42] LABS: CARBON DIOXIDE 14.4 mmol/L (21-32); POTASSIUM SERUM 4.1 mmol/L (3.5-5.1)
[2019-07-21 21:47] LABS: CREATININE SERUM 10.5 mg/dL (0.7-1.3)
--- NOTE | 2019-07-21 22:15 | NUR ---
PT RESTING. BREATHING EVEN AND UNLABORED. NO SIGNS OF DISTRESS NOTED. ENDORSED CARE TO MARVIN MATTHEWS. ALL QUESTIONS ADDRESSED.
--- NOTE | 2019-07-21 22:31 | NUR ---
RECEIVED PT IN BED WITH EYES CLOSED. PIV INTACT INFUSING WELL . TELE NUMBER 26 SHOWS NSR HR 78
--- NOTE | 2019-07-22 05:56 | NUR ---
NO CHANGES OF CONDITION NOTED, PT DENYPAIN , AWAKE IN BED , PIV INTACT INFUSING WELL , PERMA-CATH IN PLACE . TELE NSR .
[2019-07-22 06:41] LABS: BASOPHIL % 0.4 % (0-2)
[2019-07-22 06:44] LABS: MAGNESIUM 1.6 mg/dL (1.8-2.4); PHOSPHOROUS 3.9 mg/dL (2.5-4.9)
[2019-07-22 06:49] LABS: CARBON DIOXIDE 7.7 mmol/L (21-32); CREATININE SERUM 10.1 mg/dL (0.7-1.3)
--- NOTE | 2019-07-22 07:23 | NUR ---
CO2 7.[address] NORRISED AND ENDORSED TO AM NURSE TO F/U WITH .
--- NOTE | 2019-07-22 07:30 | NUR ---
RECEIVED PATIENT IN BED, AWAKE ALERT AND ORIENTED. PER PATIENT HE FEELS VERY TIRED THIS AM. IVF INFUSING WELL, SITE LEFT A/C PATENT. RESP EVEN AND UNLABORED, LUNGS CLEAR ON ROOM AIR. TELE 26 NSR. DIFFUSE ECCHYMOSIS TO BUE/BLE AND ERYTHEMA TO BUTTOCKS. PATIENT STATES HE HAS DIARRHEA EVERY TIME HE EATS. IS ON A CLEAR LIQUID DIET. N ACUTE DISTRESS NOTED.
[2019-07-22 07:39] LABS: PLATELET COUNT 97 x10^3mcL (130-400); RED CELL DISTRIBUTION WIDTH 18.3 % (11.5-14.5)
[2019-07-22 08:26] VITALS: BP 92/63
--- NOTE | 2019-07-22 10:01 | NUR ---
RECEIVED PATIENT'S ABG RESULT FROM R.T. DR BLAIR CALLED, REGINE KEE NOTIFIED OF RESULTS. NEW ORDER RECEIVED FOR SODIUM BICARB. WILL ADMINISTER ORDERED.
--- NOTE | 2019-07-22 11:24 | NUR ---
Initial Nutrition Assessment Dx: Acute pancreatitis, severe malnutrition PMHx: HIV, ESRD on HD ([facility]), CMV colitis Labs: (07/22) BUN 21H, Cr 10.1H, Ca 7L, P 3.9, H/H 9.9L/97L, ALB 2.3L Meds: Cytovene, Imodium, Levaquin, Lomitil, Phoslo, Proamatine, NSIV Diet: Renal PO intake since admission: 100% x 2 meals on CLD Ht: 175 cm Wt: 45.9 kg BMI: 15.4 (Severely underweight) Bed scale: 45 kg IBW: 160# %IBW: 63% UBW: 150-170# x 1 year ago with progressive weight loss in the past year Age: 39 y/o male Food Allergies: NKFA Skin: Simone: 15 Edema: None GI: Last BM: multiple loose stools NFPE: Physical examination reveals severe losses of subcutaneous fat and muscle to B/L brachial, lower extremity, and temporal regions. RD Note (07/22/19): Trigger received for appears malnourished/underweight, NVD and poor PO >3 days, severe PCM today. Receives HD at [facility] on [facility]S schedule and was seen by myself on at [facility] for nutrition follow-up. Unable to complete HD session d/t multiple episodes of loose stools, vomiting, generalized weakness, and hypotension. However, good appetite noted since admission but noted with loose stools every time he eats. Taking P-binders as prescribed. Receives ONS at [facility] as albumin levels have been <3.8 this past month. Problem with: N/V/D/C: +loose stool Problems with: Chewing: N Swallowing: N Current appetite: Good to fair Recent wt change: -30# x 1 month %wt change: >5% x 1 mo; significant Vitamin/Supplement use: None Special diet at home: Regular Physical activity: Unable d/t acute illness Nutrition education given (specify specific nutrition education and handout given): Not provided during visit today. Will f/u with pt. at [facility]; comprehensive nutrition education provided monthly with routine and protocol labs. Previous education at HD center include HBV protein intake, foods to address low K, and small frequent meals. Estimated Nutritional Needs Based on body weight (45 kg) Energy: 8434-5920 kcal/day (35-40 kcal/kg for HD losses, severe malnutrition) Protein: 81-90 g/day (1.8-2.0 g/kg for malnutrition, HD) Fluid: 1000 mL+ residual renal function or per doctor's orders Nutrition Diagnosis: 1. Malnutrition r/t significant weight loss and chronic GI distress AEB pt. noted with chronic loose stools associated with eating, NFPE with severe subcutaneous fat and muscle losses, and BMI 15.4 with significant -30# weight loss x 1 month. 2. Increased nutrient needs r/t increased metabolic demands AEB pt. on routine HD, viral infection, and severe malnutrition. Intervention 1. Continue renal diet as ordered and as tolerated. 2. Consider adding Nephro-Cecile or equivalent QD for supplementation 3. Nepro QD for additional kcal if pt. intake is meeting <75% estimated needs. Provides 425 kcal and 19 g protein. Monitor/Evaluate Goal: PO intake at least 75% of estimated needs Monitor: PO intake/tolerance, Labs, GI function F/U in 2-3 days as high risk (07/24-07/25)
--- NOTE | 2019-07-22 13:20 | NUR ---
PATIENT'S PLAN OF CARE WAS DISCUSSED AND REVIEWED WITH RADIAL DRILL PRESS OPERATOR:NABILA VERA. I HAVE REVIEWED THE DATA COLLECTION BY RADIAL DRILL PRESS OPERATOR (NAME): NABILA VERA. ENTERED ON (DATE/TIME):NABILA VERA. I CONCUR WITH THE DATA AND ANY EXCEPTIONS OR COMMENTS ARE LISTED BELOW:
[2019-07-22 13:31] VITALS: BP 98/59
[2019-07-22 17:10] VITALS: BP 87/51
--- NOTE | 2019-07-22 18:08 | NUR ---
PATIENT SITTING UP IN BED EATING DINNER TRAY WITH FAMILY MEMBERS AT BEDSIDE. PER PATIENT HE ONLY HAD ONE EPISODE OF DIARRHEA AFTER LOMITIL WAS GIVEN TODAY. IVF INFUSING WELL, SITE PATENT. Z-GUARD APPLIED TO BUTTOCKS AREA IS SLIGHTLY PINK NO OPEN AREAS. DENIES ANY PAIN OR DISCOMFORT. TOLERATING RENAL DIET.
--- NOTE | 2019-07-22 19:15 | NUR ---
RECEIVED PT FROM PREVIOUS SHIFT NURSE. PT AOX4. DENIES LOZANO/DIZZINESS. ON TELE #26, NSR. DENIES CP/PRESSURE. LUNG SOUNDS DIMINISHED, ON RA. DENIES SOB/DIFFICULTY BREATHING. R. CHEST PERMACATH NOTED. IV TO LAC, INTACT AND PATENT. BED IN LOWEST POSITION. CALL LIGHT WITHIN REACH. WILL CONTINUE TO MONITOR.
[2019-07-22 19:31] VITALS: BP 91/53
--- NOTE | 2019-07-23 03:30 | NUR ---
PT RESTING IN BED. RR EVEN AND UNLABORED. IN NO ACUTE DISTRESS. CALL LIGHT WITHIN REACH. BED IN LOWEST POSITION. WILL CONTINUE TO MONITOR.
[2019-07-23 05:16] VITALS: BP 84/42
[2019-07-23 06:58] LABS: CALCIUM 6.5 mg/dL (8.5-10.1); MAGNESIUM 1.2 mg/dL (1.8-2.4); PHOSPHOROUS 3.2 mg/dL (2.5-4.9); POTASSIUM SERUM 3.5 mmol/L (3.5-5.1)
[2019-07-23 06:59] LABS: BASOPHIL % 0.4 % (0-2)
[2019-07-23 07:02] LABS: CREATININE SERUM 10.7 mg/dL (0.7-1.3)
[2019-07-23 07:12] LABS: PLATELET COUNT 92 x10^3mcL (130-400); RED CELL DISTRIBUTION WIDTH 18.4 % (11.5-14.5)
[2019-07-23 09:32] VITALS: BP 83/48
--- NOTE | 2019-07-23 10:34 | NUR ---
AAO TIMES 4. TELE # 26 SR. LUNGS CTA BUT SOMEWHAT DIMINISHED ALSO. O2 SAT ON RA 98%. BS'S ACTIVE TIMES 4. [place] WITH SLIGHT GENERALIZED WEAKNESS. PERIPHERAL PULSES PALPABLE. NO EDEMA. IV SITE CDI. DR GIBSON SAID HE WILL GET HD TODAY, AN FRESH IV SITE AND THEN HE WILL GO HOME AND CONTINUE HIS ONCE A WEEK MEDICATION INFUSIONS. NO C/O PAIN.
[2019-07-23 12:37] VITALS: BP 85/52
--- NOTE | 2019-07-23 15:24 | NUR ---
TEGAN RN AND MYSELF CALLED THE ROSA, AND SHE IS AWARE THAT HER IS GOING TO GO BACK TO [facility] AT 2100 VIA [facility].
--- NOTE | 2019-07-23 15:25 | NUR ---
ROSA JORDAN, THE PATIENTS , IS AWARE OF TONIGHTS TRANSPORT BACK TO [facility], THE PHONE NUMBER FOR THE IS [phone].
--- NOTE | 2019-07-23 16:15 | NUR ---
HD COMPLETED AT 1600, NO FLUID REMOVED.
[2019-07-23 17:18] VITALS: BP 98/64
--- NOTE | 2019-07-23 18:19 | NUR ---
AAO TIMES 4. IV SITES TO LAC AND RIGHT WRIST PATENT, CDI. TELE # 26 SR. VS'S STABLE. NO SOB. NO C/O PAIN. ANURIC. HAD HD TODAY, IT WAS A DRY DIALYSIS. MAG RIDER 2 GRAM IVPB INFUSING.
--- NOTE | 2019-07-23 19:25 | NUR ---
RECIEVED PT RESTING IN BED WITH NO ACUTE DISTRESS NOTED, ASSESMENT PERFORMED AT THIS TIME, PT IS A/OX4 NO COMPLAINTS OF LOZANO OR DIZZINESS, PT DENIES SOB OR PAIN AT THIS TIME, IV TO RW, ALL NEEDS ATTENDED TO SAFETY PRECAUTIONS IN PLACE, WILL CONTINUE TO MONITOR
[2019-07-23 20:57] VITALS: BP 93/52
--- NOTE | 2019-07-23 23:45 | NUR ---
PT REQUESTING WATER AND SNACK, PROVIDED JELLO, ALL PT NEEDS ATTENDED TO SAFETY PRECAUTIONS IN PLACE, WILL CONTINUE TO MONITOR
--- NOTE | 2019-07-24 05:10 | NUR ---
PT RESTED COMFORTABLY THROUGH THE SHIFT. PT DENIED PAIN DURING CARE, PT WATCHED TV ON AND OFF THROUGH EVENING, ALL PT NEEDS ATTENDED TO, SAFETY PRECAUTIONS IN PLACE WILL CONTINUE TO MONITOR AND ENDORSE CARE
[2019-07-24 05:57] VITALS: BP 84/41
[2019-07-24 07:14] LABS: BASOPHIL % 0.5 % (0-2)
[2019-07-24 07:19] LABS: CALCIUM 6.5 mg/dL (8.5-10.1); CARBON DIOXIDE 26.5 mmol/L (21-32); MAGNESIUM 1.9 mg/dL (1.8-2.4); PHOSPHOROUS 1.7 mg/dL (2.5-4.9)
--- NOTE | 2019-07-24 07:20 | NUR ---
RECEIVED PT FROM LAMPS TESTER AND INSPECTOR. PT AWAKE, ALERT. A/OX4. PT ON ROOM AIR WITH NO RESP DISTRESS NOTED. PT ON TELE 26, DENIES CHEST PAIN. PERIPHERAL PULSES PALPABLE, NO EDEMA NOTED. IV ACCESS RIGHT WRIST CDI, INFUSING NS WITH 40MEQKCL AT 50ML/HR. ACTIVE BS NOTED. PT DENIES ISSUES WITH ELIMINATION. PT HAS RIGHT UPPER CHEST PERMACATH FOR HEMODIALYSIS. PT DENIES PAIN AT THIS TIME. SAFETY MEASURES IN PLACE, BED LOW AND LOCKED. CALL LIGHT WITHIN REACH.
[2019-07-24 07:22] LABS: PLATELET COUNT 91 x10^3mcL (130-400); RED CELL DISTRIBUTION WIDTH 18.3 % (11.5-14.5)
[2019-07-24 07:36] LABS: CREATININE SERUM 5.8 mg/dL (0.7-1.3)
--- NOTE | 2019-07-24 07:36 | NUR ---
LAB CALLED WITH CRITICAL RESULTS K+ 2.7, PHOS 1.7.
[2019-07-24 07:57] VITALS: BP 99/49
--- NOTE | 2019-07-24 07:58 | NUR ---
PAGED DR NORRISED REGARDING LAB RESULTS, AWAITING CALL BACK.
[2019-07-24 09:09] LABS: POTASSIUM SERUM 2.6 mmol/L (3.5-5.1)
--- NOTE | 2019-07-24 09:11 | NUR ---
DUE MEDICATIONS ADMINISTERED WITH STUDENT AND TEACHER.
--- NOTE | 2019-07-24 10:45 | NUR ---
DR BLAIR AWARE PT K+ 2.7, PHOS 1.7, BUN 14, CREAT 5.8
[2019-07-24 11:50] VITALS: BP 94/58
--- NOTE | 2019-07-24 13:37 | NUR ---
POTASSIUM IVPB WITH LIDOCAINE ADMINISTERED AT THIS TIME. PT ASLEEP BUT AROUSABLE, PT DENIES PAIN AT THIS TIME. SAFETY MEASURES MAINTAINED. CALL LIGHT WITHIN REACH.
[2019-07-24 16:45] VITALS: BP 94/63
--- NOTE | 2019-07-24 17:00 | NUR ---
PT SIGNED AMA PAPERS. PT STATED HE WANTS TO EAT DINNER BEFORE LEAVING.
--- NOTE | 2019-07-24 18:32 | NUR ---
IV ACCESS REMOVED WITH CATHETER INTACT. PT SIGNING OUT AMA. PT WILL HAVE BROTHER PICK HIM UP. PT TO BE TAKEN DOWN BY WHEELCHAIR TO PRIVATE AUTO. SAFETY MAINTAINED.
== END 2019-07-24 21:11 | disposition left against medical advice (07) | DRG 438 ==
LOC: ED 13:45 → IC 16:33 → DU 07-21 16:27 → MU 07-24 11:50
PROVIDERS: Emergency Medicine; Internal Medicine Nephrology; ADMIT Internal Medicine
PROC: 5A1D70Z Performance of Urinary Filtration, Intermittent, Less than 6 Hours Per Day (ICD-10-PCS; principal; 2019-07-20)
PROC: 5A1D70Z Performance of Urinary Filtration, Intermittent, Less than 6 Hours Per Day (ICD-10-PCS; 2019-07-23)
DX: K85.90 Acute pancreatitis without necrosis or infection, unspecified (principal); E43 Unspecified severe protein-calorie malnutrition; N18.6 End stage renal disease; J96.20 Acute and chronic respiratory failure, unspecified whether with hypoxia or hypercapnia; E87.2 Acidosis; B37.0 Candidal stomatitis; B20 Human immunodeficiency virus [HIV] disease; Z68.1 Body mass index [BMI] 19.9 or less, adult; B19.20 Unspecified viral hepatitis C without hepatic coma; I95.9 Hypotension, unspecified; E87.6 Hypokalemia; D72.829 Elevated white blood cell count, unspecified; D64.9 Anemia, unspecified; D69.6 Thrombocytopenia, unspecified; Z91.19 Patient's noncompliance with other medical treatment and regimen; Z83.3 Family history of diabetes mellitus; Z84.1 Family history of disorders of kidney and ureter; E83.42 Hypomagnesemia; E83.51 Hypocalcemia; Z99.2 Dependence on renal dialysis; A08.4 Viral intestinal infection, unspecified; Z53.29 Procedure and treatment not carried out because of patient's decision for other reasons
CPT/HCPCS: 36600; 83880; 87046; 87046-59; G0378; G0480; J1644; J1956; J3370; J3475; J3480; J3490; J7030; J7040; P9047; Q0092

== ENCOUNTER 2019-09-08 13:15 | Inpatient (IN) | payer OTHER ==
[~2019-09-08] VITALS: Ht 175.3 cm; Wt 50.1 kg
--- NOTE | 2019-09-08 13:44 | NUR ---
PT WAS B/B AMBULANCE FROM HOME, CO GENERALIZED WEAKNESS. HX OF HIV AND HD. PT WAS A/OX3, GENERALIZED WEAKNESS AND CO BODYACHE. PT SPEAKS FULL SENTENCES, FOLLOWS COMMAND, BP IS LOW BUT ASYMPTOMATIC. BREATHING EVEN. NO SOB. ABDOMEN WAS FLAT, DENIES PAIN.
--- NOTE | 2019-09-08 13:52 | NUR ---
BP IS SUPER LOW 69/38. DR. LEZAMA WAS AWARE.
[2019-09-08 15:06] LABS: BASOPHIL % 0.2 % (0-2); PLATELET COUNT 130 x10^3mcL (130-400)
[2019-09-08 15:07] LABS: RED CELL DISTRIBUTION WIDTH 19.3 % (11.5-14.5)
--- NOTE | 2019-09-08 15:11 | NUR ---
PT WAS HOPOTHEMIC. WARM BLANKET WITH CHUCK WAS ON FOR PT.
--- NOTE | 2019-09-08 15:12 | NUR ---
DR. LEZAMA BEDSIDE TO EXAMINE PT.
[2019-09-08 15:56] LABS: ALKALINE PHOSPHATASE 116 U/L (46-116); ALT/SGPT 114 U/L (16-63); AST/SGOT 126 U/L (15-37); CALCIUM 7.9 mg/dL (8.5-10.1); CHLORIDE SERUM 100 mmol/L (98-107); GLUCOSE SERUM 91 mg/dL (74-106); POTASSIUM SERUM 3.3 mmol/L (3.5-5.1); SODIUM SERUM 129 mmol/L (136-145)
[2019-09-08 16:21] LABS: ALBUMIN 3.3 g/dL (3.4-5.0); CREATININE SERUM 8.5 mg/dL (0.7-1.3); GFR1 7 mL/min; LIPASE 8224 IU/L (73-393)
--- NOTE | 2019-09-08 17:50 | NUR ---
PT WAS ADMITED TO ICU 9. REPORT WAS CALLED AND GIVEN TO YSABEL KEE.
--- NOTE | 2019-09-08 18:10 | NUR ---
PT ARRIVED ON UNIT VIA GURNEY ACCOMPANIED BY RN AND EMT. PT IS AOX3, SPEECH CLEAR AND APPROPRIATE. FOLLOWS COMMANDS. PERRL. BREATHING E/U ON RA. LUNGS CTAB. DENIES CP/SOB. NSR, HR 86. S1 S2. PULSES 1+ X4. CAP REFILL @ 3 SECONDS. NO EDEMA NOTED. L HAND IV PATENT/CDI. REPORTS HX OF CHRONIC DIARRHEA. PRESENTING WITH SOILED DIAPER. DENIES ABD PAIN AT THIS TIME. ABD SOFT AND FLAT. BOWEL SOUNDS HYPOACTIVE X4Q. REPORTS ANURIA. REPORTS HD 3 TIMES A WEEK AND THAT SCHEDULE HAD BEEN CHANGED D/T HOLIDAYS RECENTLY. REPORTS LAST HD TUESDAY AND THAT HE WAS SCHEDULED FOR TODAY WELL BUT WASN'T FEELING WELL, DECIDED TO CALL AMBULANCE D/T WEAKNESS. BED LOW, SIDE RAILS UP X2, CALL LIGHT IN REACH.
[2019-09-08 19:00] VITALS: BP 90/58
[2019-09-08 19:03] VITALS: BP 83/57
--- NOTE | 2019-09-08 20:01 | NUR ---
PT HAD DARK WATERY STOOL. CLEANED AND LINENS CHANGED.
--- NOTE | 2019-09-08 22:10 | NUR ---
PT HAD MODERATE SIZED WATERY DARK BROWN BM. CLEANED AND LINENS CHANGED.
[2019-09-09] VITALS (8 sets, daily range): BP systolic 78–100; BP diastolic 44–58; Ht 175.3 cm; Wt 50.1 kg
--- NOTE | 2019-09-09 02:25 | NUR ---
PT HAD MODERATE SIZED BROWN LIQUID BM. CLEANED AND LINENS CHANGED.
[2019-09-09 04:40] LABS: PLATELET COUNT 84 x10^3mcL (130-400); RED CELL DISTRIBUTION WIDTH 17.9 % (11.5-14.5)
[2019-09-09 04:47] LABS: MAGNESIUM 1.4 mg/dL (1.8-2.4); PHOSPHOROUS 6.6 mg/dL (2.5-4.9); POTASSIUM SERUM 3.2 mmol/L (3.5-5.1)
[2019-09-09 04:48] LABS: CARBON DIOXIDE 9.9 mmol/L (21-32); CREATININE SERUM 7.8 mg/dL (0.7-1.3)
[2019-09-09 04:50] LABS: BAND NEUTROPHIL 6 % (0-10); MONOCYTE 4 % (0-7); SEGMENTED NEUTROPHILS 87 % (37-75)
[2019-09-09 04:54] LABS: PLATELET MORPHOLOGY PLATELETS DECREASED; acanthocyte (spur cell) 1+; rbc morphology (normal/abnorm) ABNORMAL (NORMAL)
--- NOTE | 2019-09-09 07:10 | NUR ---
PATIENT ALERT AND ORIENTED TO PERSON, PLACE AND TIME. PATIENT HAS CLEAR AND APPROPRIATE SPEECH. PERRLA. PATIENT DENIES NAUSEA/VOMITING, SHORTNESS OF BREATH OR PAIN AT THIS TIME. TELE # 8 SHOWS NORMAL SINUS RHYTHMS WITH EPISODES OF SINUS TACHYCARDIA WITH HR IN 100s. IVF NS AT 100ML/HR VIA IV SITE AT LEFT HAND. RIGHT CHEST TUNNELED CATH FOR HEMODIALYSIS ACCESS WITH DRESSING INTACT. CALL LIGHT WITHIN REACH. SIDE RAILS UP X3.BED IS AT LOWEST POSITION. ALARM IS ON.
--- NOTE | 2019-09-09 08:29 | NUR ---
HEMODIALYSIS NURSE MASON COME TO BEDSIDE FOR HD. LAB RESULT PROVIDED TO HD NURSE.
--- NOTE | 2019-09-09 09:24 | NUR ---
HEMODIALYSIS NURSE REQUESTED HEPATITIS PANEL RESULT; THE PATIENT DOES NOT HAVE THIS LAB RESULT THIS HOSPITALIZATION, BUT HE HAD ONE IN MARCH 2019, WHICH PROVIDED TO THE HD NURSE.
--- NOTE | 2019-09-09 09:40 | NUR ---
PATIENT VOMITED 50ML OF EMESIS. ZOFRAN 4MG IVP GIVEN TO THE PATIENT.
--- NOTE | 2019-09-09 10:40 | NUR ---
THE PATIENT REFUSED TO HAVE PICTURE OF REDNESS AT HIS PERINEAL AREA INCLUDING SHAFT OF PENIS TAKEN.
--- NOTE | 2019-09-09 11:05 | NUR ---
DR. GIBSON AND THE TEAM WERE MAKING ROUND TO SEE THE PATIENT.
--- NOTE | 2019-09-09 11:42 | NUR ---
HEMODIALYSIS COMPLETED WITH NO OUTPUT PER REPORT FROM HD NURSE. THE PATIENT BP 91/59, AND MAP 68.
--- NOTE | 2019-09-09 13:31 | NUR ---
PT HAD LOOSE DARK BM AT THIS TIME. PT CLEANED AND REPOSITIONED. FAMILY PRESENT AT BEDSIDE. WILL CONT TO MONITOR
--- NOTE | 2019-09-09 13:51 | NUR ---
DR. BARBOUR IS AT BEDSIDE EXAMING THE PATIENT.
--- NOTE | 2019-09-09 14:02 | NUR ---
DR. TAY CHRISTIANSON WAS CALLED AND NOTIFIED THAT DR. BARBOUR WANTED THE PATIENT TO HAVE SOME PROTEIN SUPPLEMENT. NUTRITION CONSULT HAS BEEN ORDERED FOR THE PATIENT.
--- NOTE | 2019-09-09 14:31 | NUR ---
REPORT GIVEN TO VIDHYA AGUILA FROM [facility]. CONCERNS ADDRESSED. PATIENT WILL BE TRANSFERRED TO ROOM 208B, [facility].
--- NOTE | 2019-09-09 15:34 | NUR ---
THE PATIENT TRANSFERRED TO ROOM 208B, [facility] UNIT IN STABLE CONDITION. ALL BELONGINGS SENT UP TO THE ROOM WITH THE PATIENT. PATIENT WAS ASKED IF HE WANTED THE NURSE TO CALL THE FAMILY TO NOTIFY THEM OF HIS TRANSFER TO [facility], BUT PATIENT SAID, "NO". VIDHYA AGUILA FROM [facility] RECEIVED THE PATIENT.
--- NOTE | 2019-09-09 15:35 | NUR ---
RECEIVED PATIENT FROM [facility] PATIENT LYING IN BED A&O X4 DENIES ANY PAIN AT THIS TIME, IV ON L HAND INFUSING , PATENT AND INTACT NO REDNESS OR EDEMA NOTED. LUNGS CTA BILAT NO S/S OF ANY RESPIRATORY DISTRESS. ON TELE # 26 DENIES ANY CHEST PAIN OR PRESSURE. TUNNEL CATH ON RIGHT CHEST NO S/S OF ANY INFECTION. ORIENTED PATIENT TO ROOM AND EDUCATED ON SAFETY. PATIENT VERBALIZED UNDERSTANDING. ALL QUESTIONS AND CONCERNS ADDRESSED AT THIS TIME. BED IN LOWEST POSITION CALL LIGHT WITHIN REACH. WILL CONTINUE TO MONITOR.
--- NOTE | 2019-09-09 18:48 | NUR ---
PATIENT SITTING UP IN BED DENIES ANY PAIN AT THIS TIME. IV INFUSING ON L HAND PATENT AND INTACT NO REDNESS OR EDEMA NOTED. PATIENT ON TELE #26 DENIES ANY CHEST PAIN OR PRESSURE. TUNNEL CATH ON R CHEST NO S/S OF ANY INFECTION. PATIENT DENIES ANY DIZZINESS OR NAUSEA. ON RA 100% NO S/S OF ANY RESPIRSTORY DISTRESS AT THIS TIME. ALL QUESTIONS AND CONCERNS ADDRESSED AT THIS TIME. BED IN LOWEST POSITION CALL LIGHT WITHIN REACH. WILL CONTINUE TO MONITOR.
--- NOTE | 2019-09-09 19:25 | NUR ---
Received pt. from day shift currently asleep, but easily arousable using verbal stimuli. Pt. is a/o x3, able to make needs known, able to follow commands, and has no c/o h/a a this time. Pt. is on contact iso, d/t h(x) of MRSA of the nares, awaiting results on MRSA culture at this time. Pt. has no c/o of pain, sob, chest pain, or n/v or s/o distress at this time. Pt. safety in check at this time, with call light placed within reach, pt. educated on when and how to use call light system, bed set at lowest position, will continue to monitor.
--- NOTE | 2019-09-10 02:14 | NUR ---
Pt. asleep throughout the shift, easily arousable using verbal stimuli. Pt. was able to ambulate to the restroom and pass a BM that was solid. Otherwise, pt. stable, medication given as ordered, safety in check w/ call light placed within reach, reeducated pt on when and how to use call light system, bed set at lowest position, will continue to monitor pt.
[2019-09-10 05:23] VITALS: BP 71/38
--- NOTE | 2019-09-10 06:47 | NUR ---
Pt. asleep throughout the shift, easily arousable using verbal stimuli. Pt. was able to ambulate to the restroom and pass a BM that was solid. Otherwise, pt. stable, no c/o of pain, SOB, or s/o distress,bed set at lowest position, will continue to monitor pt and endorse to next shift RN.
[2019-09-10 07:00] LABS: PLATELET COUNT 85 x10^3mcL (130-400); RED CELL DISTRIBUTION WIDTH 18.3 % (11.5-14.5)
[2019-09-10 07:26] LABS: CALCIUM 7.1 mg/dL (8.5-10.1); CARBON DIOXIDE 17.3 mmol/L (21-32); MAGNESIUM 1.6 mg/dL (1.8-2.4); PHOSPHOROUS 3.8 mg/dL (2.5-4.9)
--- NOTE | 2019-09-10 07:30 | NUR ---
SEEN IN BED AAOX3. NO RESP DISTRESS, BREATHING E/U ON ROOM AIR. ON TELE#26 NSR. DENIES PAIN AT THIS TIME. GEN BODY WEAKNESS. ON RENAL DIET. USES BSC. IVF D5NS AT 100 ML/HR TO LT HAND IV SITE INFUSING WELL. TUNNELLED CATHETER TO RIGHT CHEST WALL WITH DRSG CDI. CALL LIGHT PLACED WITHIN EASY REACH. SIDERAILS UP X2.
[2019-09-10 07:42] LABS: CREATININE SERUM 6.8 mg/dL (0.7-1.3); POTASSIUM SERUM 2.3 mmol/L (3.5-5.1)
[2019-09-10 09:17] VITALS: BP 84/44
[2019-09-10 11:38] LABS: BAND NEUTROPHIL 6 % (0-10); BASOPHIL 0 % (0-2); MONOCYTE 6 % (0-7); SEGMENTED NEUTROPHILS 84 % (37-75); rbc morphology (normal/abnorm) ABNORMAL (NORMAL)
[2019-09-10 11:39] LABS: PLATELET MORPHOLOGY PLATELETS DECREASED
[2019-09-10 12:47] VITALS: BP 88/55
--- NOTE | 2019-09-10 13:20 | NUR ---
Initial Nutrition Assessment: Jordi Pappas 89 Dx: Hypotension, abd pain PMHx: AIDS, CMV colitis, ESRD on HD, chronic diarrhea PSHx: none noted Labs: (09/10/19) K: 2.6, M.6, lipase: 8033H, alb: 3.3, Meds: ABX, Kcl, NaCL, Magnesium oxide, NaCO3, heparin Diet: Renal diet PO intake since admission: 10-20% po intakes since admission Ht: 69 inches Wt: 110# BMI: 16.3 Bed scale: IBW: 160# %IBW: 69% UBW: per pt fluctuates between 50-60 kg Age: 39 y/o M Food Allergies: none Skin: Simone: 15 Edema: none noted GI: Last BM: 09/10/2019 Per H&P: 39 YOM who came to the ER for weakness and loss of appetite. Patient missed his dialysis session 2 days ago and today "due to holidays". Pt reports he ran out of his HIV medications and never followed up with PCP or HIV specialist. Pt reports to having diarrhea often. RD note: spoke with pt at bedside, pt reports having diarrhea for months now, understands the importance of eating protein rich foods and increasing his calories, reports dry mouth and feels that is why his appetite is poor Problem with: N/V/D/C: diarrhea and vomiting Problems with: Chewing: Swallowing: problems with chewing d/t poor dentition but says he is able to tolerate the regular textured diet Current appetite: fair to poor, says it is better today Recent wt change: no %wt change: no Vitamin/Supplement use: takes nepro at home Special diet at home: Renal Physical activity: no Nutrition education given (specify specific nutrition education and handout given): gave [facility] handout on ulcerative colitis. Encouraged eating high protein foods and drinking nepro once approved by MD. Food-drug interactions? Education given? no Estimated Nutritional Needs Based on current body weight 110#/50kg Energy: 5381-9957 kcal/day (30-40 kcal/kg) Protein: 60-75 g g/day (1.2-1.5 g/kg) Fluid: 1L plus urine output or per MD Nutrition Diagnosis: 1. Underweight r/t poor appetite and multiple co-morbidities AEB BMI: 16.3 and diagnosis of AIDS and colitis. Intervention 1. Start Nepro 1 can bid at breakfast and dinner. 2. Start SF prostat 30 cc qd. 3. Start Neprovite 1 tab qd after dialysis session. 4. Recommend changing to regular diet to improve po intakes. Monitor/Evaluate Goal: PO intake at least 75% of estimated needs Monitor: PO intake, Labs, GI function F/U in 2-3 days as HR
--- NOTE | 2019-09-10 13:21 | NUR ---
Recommended: 1. Start Nepro 1 can bid at breakfast and dinner. 2. Start SF prostat 30 cc qd. 3. Start Neprovite 1 tab qd after dialysis session. 4. Recommend changing to regular diet to improve po intakes Spoke with DR Arceo about recommendations.
[2019-09-10 16:22] VITALS: BP 92/59
--- NOTE | 2019-09-10 18:13 | NUR ---
NO ANY DISTRESS THROUGHOUT SHIFT. TOLERATED TO RENAL DIET WELL. HAD BM X5, BRP. NORCO GIVEN X1 FOR GEN BODY PAIN WITH GOOD RELIEF.
--- NOTE | 2019-09-10 18:35 | NUR ---
CALLED AND SPOKE TO JAY(HD NURSE) AND MADE HER AWARE OF HD ORDER FOR TOMORROW PER NEPHRO ORDER.
--- NOTE | 2019-09-10 19:28 | NUR ---
PT RESTING IN BED AT THIS TIME. DENIES PAIN OR DISCOMFORT. PT A/O X4, CALM AND COOPERATIVE. TELE 26 NSR, DENIES CP, NV, DIZZINESS, AND PALPATATIONS. PALPABLE PULSES, NO EDEMA NOTED AT THIS TIME. BREATHING E/U ON RA. ABD SOFT AND ROUND PT STATES CHRONIC DIARRHEA. HD PT T/TH/FR. TUNNEL CATH R CHEST WALL. AMBULATES WITH ASSIST. IV TO L HAND, CDI. IV TO LH CDI. BED AT LOWEST POSITION. CALL LIGHT WITHIN REACH. WILL CONTINUE TO MONITOR.
[2019-09-10 20:33] VITALS: BP 90/56
[2019-09-11] VITALS (7 sets, daily range): BP systolic 75–93; BP diastolic 40–60
--- NOTE | 2019-09-11 00:28 | NUR ---
PT RESTING IN BED AT THIS TIME. DENIES PAIN OR DISCOMFORT. BREATHING E/U ON RA. WILL CONTINUE TO MONITOR.
[2019-09-11 06:12] LABS: BASOPHIL % 0.4 % (0-2)
--- NOTE | 2019-09-11 06:14 | NUR ---
PT RESTING IN BED AT THIS TIME. DENIES PAIN OR DISCOMFORT. BREATHING E/U ON RA AT THIS TIME. NO SIGNS OF ACUTE DISTRESS NOTED. ALL NEEDS AND CONCERNS ADDRESSED. WILL ENDORSE TO DAY NURSE.
[2019-09-11 06:19] LABS: CALCIUM 8.4 mg/dL (8.5-10.1); CARBON DIOXIDE 17.1 mmol/L (21-32); MAGNESIUM 1.9 mg/dL (1.8-2.4); PHOSPHOROUS 5.5 mg/dL (2.5-4.9); POTASSIUM SERUM 3.3 mmol/L (3.5-5.1)
[2019-09-11 06:30] LABS: CREATININE SERUM 8.9 mg/dL (0.7-1.3)
--- NOTE | 2019-09-11 06:50 | NUR ---
PT COMPLAINING OF 6/10 GENERALIZED BODY PAIN. MEDICATED WITH PRN NORCO.
--- NOTE | 2019-09-11 07:10 | NUR ---
RECEIVED PATIENT AWAKE/ALERT IN BED, NO C/O PAIN. TELE #26 SR W/ HR 85 NOTED. IV TO LH INTACT AND PATENT, SL. POC DISCUSS W/ PATIENT. RT CHEST TUNNEL CATH DRSG CDI. CALL LIGHT WITHIN REACH.
[2019-09-11 07:54] LABS: RED CELL DISTRIBUTION WIDTH 18.3 % (11.5-14.5)
[2019-09-11 07:55] LABS: PLATELET COUNT 97 x10^3mcL (130-400)
--- NOTE | 2019-09-11 10:07 | NUR ---
PATIENT RESTING IN BED NO COMPLAIN, MEDS AND KCL 40 MEQ PO ADMINISTERED FOR K 3.3 NEEDS MET. CONT TO MONITOR.
--- NOTE | 2019-09-11 11:16 | NUR ---
[facility] NURSE AT BEDSIDE WILL START TO DIALYZE PATIENT.
--- NOTE | 2019-09-11 12:22 | NUR ---
PATIENT ON DIALYSIS, BP 88/57, MAP 65, HR 100, MIDODRINE 20MG PO, SODIUM TAB, MAGOXIDE PO ADMINISTERED, MG 1.9 NEEDS MET. CONT TO MONITOR.
--- NOTE | 2019-09-11 14:28 | NUR ---
PER DIALYSIS NURSE REPORT HD COMPLETED 0 REMOVED, BP 86/53, HR 89, T 97.6
--- NOTE | 2019-09-11 16:03 | NUR ---
PATIENT RESTING IN BED NO COMPLAINS. CYTOVENE 60MG IVPB INFUSING AT 101ML/HR ORDERED TO GIVE AFTER HD COMPLETED. BSC PROVIDED NEXT TO PATIENT BED. CONT TO MONITOR.
--- NOTE | 2019-09-11 16:53 | NUR ---
VANCOMYCIN 750MG IVPB INFUSING TO LH IV PATENT, SODIUM BICARB 1 TAB PO GIVEN. ICE WATER REFILL. NEEDS MET. PATIENT RESTING IN BED COMFORTABLE.
--- NOTE | 2019-09-11 18:22 | NUR ---
PATIENT IN BED EATING NO COMPLAIN, NEEDS MET. CALL LIGHT WITHIN REACH.
--- NOTE | 2019-09-11 19:56 | NUR ---
PT RESTING IN BED AT THIS TIME. DENIES PAIN OR DISCOMFORT. BREATHIGN E/U ON RA. PT A/O X4, CALM AND COOPERATIVE. TELE 26, DENIES CP, NV, DIZZINESS, OR PALPATATIONS. PALPABLE PULSES, NO EDEMA NOTED AT THIS TIME. ABD SOFT AND ROUND, STATES BM MORE FORMED TODAY. PT HD T/TH/SAT, TUNNEL CATH NOTED TO R CHEST WALL. PT AMBULATORY WITH ASSIST. IV TO L HAND, CDI AT THIS TIME. BED AT LOWEST POSITION. CALL LIGHT WITHIN REACH. WILL CONTINUE TO MONITOR.
--- NOTE | 2019-09-12 00:43 | NUR ---
PT RESTING IN BED AT THIS TIME. NO S/S OF PAIN OR DISCOMFORT AT THIS TIME. PT BREATHING E/U ON RA. NO SIGNS OF ACUTE DISTRESS NOTED. BED A LOWEST POSITION. CALL LIGHT WITHIN REACH. WILL CONTINUE TO MONITOR.
[2019-09-12 06:22] LABS: BASOPHIL % 0.3 % (0-2)
[2019-09-12 06:32] LABS: PLATELET COUNT 102 x10^3mcL (130-400)
--- NOTE | 2019-09-12 06:35 | NUR ---
PT RESTING IN BED AT THIS TIME. DENIES PAIN OR DISCOMFORT. BREATHING E/U ON RA AT THIS TIME. NO SIGNS OF ACUTE DISTRESS NOTED AT THIS TIME. ALLO NEEDS AND CONCERNS ADDRESSED THIS SHIFT. BED AT LOWEST POSITION. CALL LIGHT WITHIN REACH. WILL ENDORSE.
[2019-09-12 06:38] LABS: CALCIUM 7.5 mg/dL (8.5-10.1); CARBON DIOXIDE 26.7 mmol/L (21-32); MAGNESIUM 1.9 mg/dL (1.8-2.4)
[2019-09-12 06:42] LABS: CREATININE SERUM 5.5 mg/dL (0.7-1.3); POTASSIUM SERUM 2.5 mmol/L (3.5-5.1)
--- NOTE | 2019-09-12 07:20 | NUR ---
RECEIVED PT IN BED. ASSESSED AND DOCUMENTED. DENIES PAIN THIS TIME. STABLE. [facility] PRECAUTIONS ARE IN PLACE. WILL MONITOR.
--- NOTE | 2019-09-12 08:30 | NUR ---
INFORMED ABOUT K=2.5 AND BP=79/48, HR 101. PT IS ASYMPTAMATIC, STABLE. NO DIZZINESS AND NO DISTRESS NOTED.
[2019-09-12 09:33] VITALS: BP 79/48
--- NOTE | 2019-09-12 12:59 | NUR ---
Discount pharmacy card and list to low cost medical clinics given to patient by Vandana Soria.
--- NOTE | 2019-09-12 13:00 | NUR ---
PT RESTING IN BED, HAD LUNCH, NO DISTRESS NOTED. DENIES ANY PAIN. HAD 2 DIARRHEA TODAY, AWARE, PT IS STABLE.
[2019-09-12 13:36] VITALS: BP 79/45
--- NOTE | 2019-09-12 16:30 | NUR ---
PT RESTING IN BED COMFORTABLY, STABLE, DENIES ANY PAIN.
[2019-09-12] MEDS ORDERED: MIDODRINE HCL10 MG PO (16:34)
[2019-09-12] MEDS ORDERED: ISENTRESS400 MG PO (16:34)
[2019-09-12] MEDS ORDERED: AZITHROMYCIN600 MG PO (16:34)
[2019-09-12] MEDS ORDERED: CALCIUM ACETAT667 M3 PO (16:35)
[2019-09-12] MEDS ORDERED: K-TAB20 MEQ PO (16:35)
[2019-09-12] MEDS ORDERED: NON-FORMULARY DRUG PO (16:36)
[2019-09-12] MEDS ORDERED: BAC PO (16:36)
[2019-09-12 17:08] VITALS: BP 79/41
--- NOTE | 2019-09-12 17:15 | NUR ---
INFORMED PT HE WILL BE DISCHARGED HOME TODAY. PT SAID HE WILL CALL FOR RIDE.
[2019-09-12 19:03] VITALS: BP 79/41
--- NOTE | 2019-09-12 19:05 | NUR ---
PT WAITING FOR FAMILY, DC PAPER ENDORSED TO VETERINARY PARASITOLOGIST NURSE, REPORT GIVEN. PT IS STABLE. DENIES ANY PAIN.
--- NOTE | 2019-09-12 20:08 | NUR ---
DISCHARGED PT TO HOME. SISTER (FREIDA) PROVIDED THE TRANSPORTATION. NO SOB NOTED ON ROOM AIR. BREATHING EVEN AND UNLABORED. NO C/O CHEST PAIN. NO DISTRESS NOTED. IV TO LEFT HAND REMOVED. NO BLEEDING NOTED. TELE#26 RETURNED TO ADMINISTRATION SPECIALIST BY SHANNA HINES RN. DISCHARGE PAPER SIGNED AND GIVEN TO PT. PRESCRIPTION GIVEN TO PT.
== END 2019-09-12 20:08 | disposition home or self-care (01) | DRG 890 ==
LOC: ED 13:15 → DU 16:58 → IC 16:58 → DU 09-09 15:38
PROVIDERS: Emergency Medicine; Family Medicine; ADMIT Internal Medicine
PROC: 5A1D70Z Performance of Urinary Filtration, Intermittent, Less than 6 Hours Per Day (ICD-10-PCS; principal; 2019-09-09)
PROC: 5A1D70Z Performance of Urinary Filtration, Intermittent, Less than 6 Hours Per Day (ICD-10-PCS; 2019-09-11)
DX: A41.9 Sepsis, unspecified organism (principal); B20 Human immunodeficiency virus [HIV] disease; B25.8 Other cytomegaloviral diseases; R57.1 Hypovolemic shock; E43 Unspecified severe protein-calorie malnutrition; A08.39 Other viral enteritis; C46.9 Kaposi's sarcoma, unspecified; I95.9 Hypotension, unspecified; N18.6 End stage renal disease; E83.42 Hypomagnesemia; E83.51 Hypocalcemia; E87.1 Hypo-osmolality and hyponatremia; E87.6 Hypokalemia; R74.0 Nonspecific elevation of levels of transaminase and lactic acid dehydrogenase [LDH]; Z99.2 Dependence on renal dialysis; Z68.1 Body mass index [BMI] 19.9 or less, adult
CPT/HCPCS: 87046; 87046-59; G0378; J1644; J1885; J1956; J2405; J3370; J3480; J7030; J7042; J7060; Q0092

== ENCOUNTER 2019-10-03 19:26 | Inpatient (IN) | payer OTHER ==
[~2019-10-03] VITALS: Ht 175.3 cm; Wt 71.9 kg
[2019-10-03 20:50] LABS: PLATELET COUNT 264 x10^3mcL (130-400)
[2019-10-03 20:55] LABS: RED CELL DISTRIBUTION WIDTH 18.3 % (11.5-14.5)
[2019-10-03 21:05] LABS: BILIRUBIN TOTAL 0.4 mg/dL (0.20-1.00); CALCIUM 8.1 mg/dL (8.5-10.1); CARBON DIOXIDE 30.5 mmol/L (21-32); MAGNESIUM 1.7 mg/dL (1.8-2.4)
[2019-10-03 21:16] LABS: ALBUMIN 2.3 g/dL (3.4-5.0); TOTAL PROTEIN, SERUM 8.7 g/dL (6.4-8.2)
[2019-10-03 21:18] LABS: CREATININE SERUM 5.4 mg/dL (0.7-1.3); POTASSIUM SERUM 6.1 mmol/L (3.5-5.1)
[2019-10-03] MEDS ORDERED: MIDODRINE HCL10 MG PO (21:29)
[2019-10-03] MEDS ORDERED: AZITHROMYCIN600 MG PO (21:30)
[2019-10-03 21:53] LABS: MONOCYTE 8 % (0-7); SEGMENTED NEUTROPHILS 65 % (37-75)
[2019-10-03 21:54] LABS: ATYPICAL LYMPH 3 %; BAND NEUTROPHIL 2 % (0-10); METAMYELOCTE 1 % (0-2)
[2019-10-03 21:56] LABS: PLATELET MORPHOLOGY PLATELETS NORMAL; rbc morphology (normal/abnorm) ABNORMAL (NORMAL)
[2019-10-03 22:34] LABS: CHOLESTEROL/HDL RATIO 2.3
[2019-10-03 23:00] VITALS: BP 133/102
[2019-10-03 23:04] VITALS: Ht 175.3 cm; Wt 71.9 kg
[2019-10-04 05:20] VITALS: BP 132/97
[2019-10-04 06:48] LABS: BILIRUBIN TOTAL 0.4 mg/dL (0.20-1.00); CALCIUM 8.3 mg/dL (8.5-10.1); CARBON DIOXIDE 29.3 mmol/L (21-32); MAGNESIUM 2.3 mg/dL (1.8-2.4); PHOSPHOROUS 5.9 mg/dL (2.5-4.9); TOTAL PROTEIN, SERUM 7.9 g/dL (6.4-8.2)
[2019-10-04 06:53] LABS: CREATININE SERUM 5.7 mg/dL (0.7-1.3); POTASSIUM SERUM 5.6 mmol/L (3.5-5.1)
[2019-10-04 07:22] LABS: PLATELET COUNT 218 x10^3mcL (130-400)
[2019-10-04 07:25] LABS: BASOPHIL % 0 % (0-2); RED CELL DISTRIBUTION WIDTH 17.8 % (11.5-14.5)
[2019-10-04 08:03] VITALS: BP 133/98
[2019-10-04 11:39] VITALS: BP 138/100
[2019-10-04 16:20] VITALS: BP 128/95
[2019-10-04 20:19] VITALS: BP 130/93
[2019-10-05 05:23] VITALS: BP 139/90
[2019-10-05 07:01] LABS: CALCIUM 8.1 mg/dL (8.5-10.1); PHOSPHOROUS 4.9 mg/dL (2.5-4.9); POTASSIUM SERUM 5.2 mmol/L (3.5-5.1)
[2019-10-05 07:04] LABS: CREATININE SERUM 4.5 mg/dL (0.7-1.3)
[2019-10-05 08:24] VITALS: BP 139/93
[2019-10-05 08:46] LABS: PLATELET COUNT 228 x10^3mcL (130-400); RED CELL DISTRIBUTION WIDTH 17.4 % (11.5-14.5)
[2019-10-05 10:58] VITALS: BP 139/93
[2019-10-05] MEDS ORDERED: ZESTRIL5 MG PO (11:51)
[2019-10-05] MEDS ORDERED: CARVEDILOL ER40 MG PO (11:51)
[2019-10-05 12:41] VITALS: BP 141/89
== END 2019-10-05 16:59 | disposition home or self-care (01) | DRG 890 ==
LOC: ED 19:26 → DU 21:36
PROVIDERS: Emergency Medicine; ADMIT Family Medicine
PROC: 5A1D70Z Performance of Urinary Filtration, Intermittent, Less than 6 Hours Per Day (ICD-10-PCS; principal; 2019-10-04)
PROC: 5A1D70Z Performance of Urinary Filtration, Intermittent, Less than 6 Hours Per Day (ICD-10-PCS; 2019-10-05)
DX: E87.5 Hyperkalemia (principal); B20 Human immunodeficiency virus [HIV] disease; B25.8 Other cytomegaloviral diseases; N18.6 End stage renal disease; E43 Unspecified severe protein-calorie malnutrition; I13.2 Hypertensive heart and chronic kidney disease with heart failure and with stage 5 chronic kidney disease, or end stage renal disease; E83.42 Hypomagnesemia; A08.39 Other viral enteritis; I50.9 Heart failure, unspecified; R74.0 Nonspecific elevation of levels of transaminase and lactic acid dehydrogenase [LDH]; D63.8 Anemia in other chronic diseases classified elsewhere; F15.21 Other stimulant dependence, in remission; F12.21 Cannabis dependence, in remission; Z99.2 Dependence on renal dialysis; Z68.23 Body mass index [BMI] 23.0-23.9, adult
CPT/HCPCS: 83880; G0378; J0610; J1644; J3475; J7030; J7050; Q0092